=== PATIENT | male | born 1990 | race Caucasian/White ===

== ENCOUNTER 2023-06-19 06:13 | Outpatient (OUT) | payer OTHER, SELFPAY ==
[2023-06-19 07:45] LABS: Free T4 0.84 ng/dL (0.76-1.46)
[2023-06-19 07:51] LABS: Free T3 2.61 pg/mL (2.18-3.98)
== END 2023-06-19 06:14 | disposition home or self-care (01) ==
LOC: LAB 06:17
PROVIDERS: PCP Specialist; Visit Provider Nurse Practitioner
DX: E03.9 Hypothyroidism, unspecified (principal)
CPT/HCPCS: 36415; 84439; 84443; 84481

== ENCOUNTER 2023-08-21 08:46 | Outpatient (OUT) | payer OTHER, SELFPAY ==
--- OUTSIDE RECORDS SUMMARY | 2023-08-21 08:50 | XMS_ITS | CCD ---
Author Name Unknown Address [address] [place] [address] Organization [facility] Care Team Providers Care Financial Management Consultant Name Role Phone BAHMAN, DR FRAN Crews Attending Unavailable BAHMAN, DR FRAN Crews Consulting Unavailable BAHMAN, DR FRAN Crews Admitting Unavailable BAHMAN, DR FRAN Crews Consulting Unavailable BAHMAN, DR FRAN Crews Admitting Unavailable BAHMAN, DR FRAN Crews Attending Unavailable BAHMAN, DR FRAN Crews Consulting Unavailable BAHMAN, DR FRAN Crews Admitting Unavailable BAHMAN, DR FRAN Crews Attending Unavailable BAHMAN, FRAN Crews Primary Care Physician [phone] Zen ARREDONDO Attending Unavailable Zen ARREDONDO Admitting Unavailable Zen ARREDONDO Referring Unavailable Zen ARREDONDO Attending Unavailable Lady Mendez Attending Unavailable Medications Current Medications Medication Drug Class(es) Dates Sig (Normalized) Sig (Original) acetaminophen 325 mg / HYDROcodone bitartrate 5 mg oral tablet (1 source) Opioid Agonist Start: 05-11-2022 [place] 325 mg-5 mg oral tablet 1 tab(s), Oral, q4hr, 12 tab(s), Refill(s) 0, take one tab q4hr prn after procedure, [facility]/pharmacy #[id number], 185, cm, 04/14/22 15:12:00 EDT, Height/Length Dosing, 98, kg, 04/14/22 15:12:00 EDT, Weight Dosing Start Date: 05/11/22 Status: Ordered cephalexin 500 mg oral capsule (1 source) Cephalosporin Antibacterial Start: 05-11-2022 take 1 capsule by mouth twice daily Keflex 500 mg Cap 500 mg = 1 cap(s), Oral, BID, start one day prior to procedure, # 10 cap(s), Refills(s) 0, Pharmacy: [facility]/pharmacy #[id number], 185, cm, 04/14/22 15:12:00 EDT, Height/Length Dosing, 98, kg, 04/14/22 15:12:00 EDT, Weight Dosing Start Date: 05/11/22 Status: Ordered diazePAM 10 mg oral tablet (1 source) Benzodiazepine Start: 05-11-2022 Valium 10 mg Tab 10 mg = 1 tab(s), Oral, Once, take one hour prior to procedure, # 1 tab(s), Refills(s) 0, Pharmacy: [facility]/pharmacy #[id number], 185, cm, 04/14/22 15:12:00 EDT, Height/Length Dosing, 98, kg, 04/14/22 15:12:00 EDT, Weight Dosing Start Date: 05/11/22 Status: Ordered Synthroid (1 source) l-Thyroxine Start: 05-20-2022 take 1 dose by mouth once daily Loratadine (1 source) Start: 04-14-2022 loratadine Daily Start Date: 04/14/22 Status: Ordered Multi Vitamins oral tablet (1 source) Start: 04-14-2022 Multi Vitamins oral tablet Oral, Daily Start Date: 04/14/22 Status: Ordered Problems Problem Classification Problem Date Documented Date Episodic/Chronic Contraceptive and procreative management (1 source) Contraception status 06-09-2022 Episodic Other screening for suspected conditions (not mental disorders or infectious disease) (1 source) Abnormal results of thyroid function studies; Translations: [ABNORMAL RESULTS THR FUNCTION STDY] Onset: 04-21-2022 Episodic Residual codes; unclassified (1 source) Family history of prostate cancer 04-14-2022 Episodic Thyroid disorders (4 sources) Hypothyroidism, unspecified; Translations: [HYPOTHYROIDISM UNSPECIFIED] Onset: 06-20-2022 Chronic Results Test Name Value Interpretation Reference Range Facility Immunization Recordson 05-25 Immunization Records [id number] .00CD:127 Normal [facility] Ambulatory Visit Summaryon 0 05-06-2023 Ambulatory Visit Summary YUNI CASTRO :1990 Visit Date:05/06/2023 Ambulatory Visit Instructions Your Diagnosis Hypothyroid BMI 27.0-27.9,adult Your Care Team Attending Physician - Lady Ruiz Primary Care Physician - Lady Ruiz This Is Your Medications List levothyroxine (Synthroid) levothyroxine (levothyroxine 75 mcg (0.075 mg) Tab) loratadine multivitamin (Multi Vitamins oral tablet) Procedures Performed Vasectomy (05/20/2022), Appendectomy, Surgery. Discharge Vitals Heart Rate (Peripheral) 76 Respiratory Rate 18 Blood Pressure 100/68 Height 185 cm Height 73 in Weight 95.1 kg Weight 209.22 lb BMI 27.79 Medications What How Much When Instructions Unchanged levothyroxine (levothyroxine 75 mcg (0.075 mg) Tab) 1 Tablets By Mouth Every day Pickup at [facility]/pharmacy #[id number] Unchanged levothyroxine (Synthroid) 75 Microgram By Mouth Every day Unchanged loratadine Every day Unchanged multivitamin (Multi Vitamins oral tablet) By Mouth Every day Pharmacy Information [facility]/pharmacy #[id number]: [address], [place] [id number] [phone] Allergies No Known Allergies Problems Ongoing - Any problem that you are currently receiving treatment for. Encounter for vasectomy Family history of prostate cancer Hypothyroid Education Materials Hypothyroidism Hypothyroidism is when the thyroid gland does not make enough of certain hormones. This is called an underactive thyroid. The thyroid gland is a small gland located in the lower front part of the neck, just in front of the windpipe (trachea). This gland makes hormones that help control how the body uses food for energy (metabolism) as well as how the heart and brain function. These hormones also play a role in keeping your bones strong. When the thyroid is underactive, it produces too little of the hormones thyroxine (T4) and triiodothyronine (T3). What are the causes? This condition may be caused by: ? Juan Pablo's disease. This is a disease in which the body's disease-fighting system (immune system) attacks the thyroid gland. This is the most common cause. ? Viral infections. ? . ? Certain medicines. ? defects. ? Problems with a gland in the center of the brain (pituitary gland). ? Lack of enough iodine in the diet. Other causes may include: ? Past radiation treatments to the head or neck for cancer. ? Past treatment with radioactive iodine. ? Past exposure to radiation in the environment. ? Past surgical removal of part or all of the thyroid. What increases the risk? You are more likely to develop this condition if: ? You are female. ? You have a family history of thyroid conditions. ? You use a medicine called lithium. ? You take medicines that affect the immune system (immunosuppressants). What are the signs or symptoms? Common symptoms of this condition include: ? Not being able to tolerate cold. ? Feeling as though you have no energy (lethargy). ? Lack of appetite. ? Constipation. ? Sadness or depression. ? Weight gain that is not explained by a change in diet or exercise habits. ? Menstrual irregularity. ? Dry skin, coarse hair, or brittle nails. Other symptoms may include: ? Muscle pain. ? Slowing of thought processes. ? Poor memory. How is this diagnosed? This condition may be diagnosed based on: ? Your symptoms, your medical history, and a physical exam. ? Blood tests. You may also have imaging tests, such as an ultrasound or MRI. How is this treated? This condition is treated with medicine that replaces the thyroid hormones that your body does not make. After you begin treatment, it may take several weeks for symptoms to go away. Follow these instructions at home: ? Take ifmz-cgo-dgcmbon and prescription medicines only as told by your health care provider. ? If you start taking any new medicines, tell your health care provider. ? Keep all follow-up visits as told by your health care provider. This is important. ? As your condition improves, your dosage of thyroid hormone medicine may change. ? You will need to have blood tests regularly so that your health care provider can monitor your condition. Contact a health care provider if: ? Your symptoms do not get better with treatment. ? You are taking thyroid hormone replacement medicine and you: ? Sweat a lot. ? Have tremors. ? Feel anxious. ? Lose weight rapidly. ? Cannot tolerate heat. ? Have emotional swings. ? Have diarrhea. ? Feel weak. Get help right away if: ? You have chest pain. ? You have an irregular heartbeat. ? You have a rapid heartbeat. ? You have difficulty breathing. These symptoms may be an emergency. Get help right away. Call 911. ? Do not wait to see if the symptoms will go away. ? Do not drive yourse (more content not included)... Normal [facility] Family Medicine Office/Laurita Cueto 05-06-2023 Family Medicine Office/Clinic Note HPI Staff Yuni is a 32 year old male presenting to [facility] care Establish Care: History: Any previous diagnosis: Hypothyroidism, seasonal allergies History of seeing any specialist: When was your last doctors visit: Last provider: Dr Ruggiero Any recent labs: TSH 06/20/22 11.720 04/16/23 96.175 Health Maintenance UTD: Colonoscopy: no PSA: no Acute: Current issues/complaints: needs refill levothyroxine History of Present Illness pt presents today to review labs Review of Systems PHQ Score Initial Depression Screen Score: 0 ROS - Provider Constitutional: no fever, no chills, no sweats, no fatigue Respiratory: no shortness of breath, no cough, no orthopnea, no wheezing. Cardiovascular: no chest pain, no palpitations, no edema. Neurologic: no headache, no dizziness, no numbness, no weakness. Physical Exam Vitals & Measurements HR: 76(Peripheral) RR: 18 BP: 100/68 SpO2: 98% HT: 73 in HT: 185 cm WT: 95.1 kg WT: 209.22 lb BMI: 27.79 General: alert, no acute distress ENMT: oral mucosa moist, no pharyngeal erythema or exudate Cardiovascular: regular rate and rhythm, normal peripheral perfusion Respiratory: Lungs CTA, respirations non labored Extremities: no deformity, no trauma Neurological: oriented x 4, LOC appropriate for age, CN II-XII intact, motor strength equal & normal bilaterally, speech normal Assessment/Plan 1. Hypothyroid (E03.9: Hypothyroidism, unspecified) discussed lab results. pt has not taken synthroid since December. pt has many questions about hypothyroidism. patient hand out provided. all questions answered. pt to return to [facility] in 6 weeks for a lab draw will adjust meds as needed. 2. BMI 27.0-27.9,adult (Z68.27: Body mass index [BMI] 27.0-27.9, adult) BMI education complete Orders: levothyroxine, 75 mcg = 1 tab(s), Oral, Daily, # 30 tab(s), Refills(s) 1, Pharmacy: [facility]/pharmacy #[id number], 185, cm, 05/06/23 14:44:00 EDT, Height/Length Dosing, 95.1, kg, 05/06/23 14:44:00 EDT, Weight Dosing Follow-up No qualifying data available Patient Education Hypothyroidism Hypothyroidism Problem List/Past Medical History Ongoing Encounter for vasectomy Family history of prostate cancer Hypothyroid Historical No qualifying data Procedure/Surgical History Vasectomy (05/20/2022), Appendectomy, Surgery. Medications levothyroxine 75 mcg (0.075 mg) Tab, 75 mcg= 1 tab(s), Oral, Daily, 1 refills loratadine, Daily Multi Vitamins oral tablet, Oral, Daily Synthroid, 75 mcg, Oral, Daily, Not taking: pt ran out of medication Allergies No Known Allergies Social History Alcohol - Denies Alcohol Use, 04/14/2022 Tobacco Never (less than 100 in lifetime) Tobacco Use:. Never Smokeless Tobacco Use:. Household tobacco concerns: No., 05/06/2023 Family History Diabetes mellitus: Father. Epilepsy: Father. Primary malignant neoplasm of prostate: Father and Grandparent. Immunizations Vaccine Date Status Comments influenza virus vaccine, inactivated 05/31/2022 Recorded SARS-CoV-2 (COVID-19) mRNA BNT-162b2 vax 07/14/2021 Recorded 2023-05-06: TPVALL influenza virus vaccine, inactivated 05/20/2021 Recorded SARS-CoV-2 (COVID-19) mRNA BNT-162b2 vax 11/01/2020 Recorded SARS-CoV-2 (COVID-19) mRNA BNT-162b2 vax 10/11/2020 Recorded influenza virus vaccine, inactivated 05/20/2020 Recorded influenza virus vaccine, inactivated 05/31/2019 Recorded influenza virus vaccine, inactivated 06/01/2018 Recorded measles/mumps/rubella virus vaccine 06/17/2000 Recorded DTaP, unspecified formulation 04/10/1994 Recorded Hib, unspecified formulation 04/30/1993 Recorded measles/mumps/rubella virus vaccine 09/24/1989 Recorded Normal [facility] Comment on above: Result Comment: Elec tronically Signed By: Lady Ruiz\.silvino\Date and Time Signed: 05/06/23 15:08 EDT Patient Educationon 05-06-20 Patient Education Hypothyroidism Hypothyroidism is when the thyroid gland does not make enough of certain hormones. This is called an underactive thyroid. The thyroid gland is a small gland located in the lower front part of the neck, just in front of the windpipe (trachea). This gland makes hormones that help control how the body uses food for energy (metabolism) as well as how the heart and brain function. These hormones also play a role in keeping your bones strong. When the thyroid is underactive, it produces too little of the hormones thyroxine (T4) and triiodothyronine (T3). What are the causes? This condition may be caused by: ? Juan Pablo's disease. This is a disease in which the body's disease-fighting system (immune system) attacks the thyroid gland. This is the most common cause. ? Viral infections. ? . ? Certain medicines. ? defects. ? Problems with a gland in the center of the brain (pituitary gland). ? Lack of enough iodine in the diet. Other causes may include: ? Past radiation treatments to the head or neck for cancer. ? Past treatment with radioactive iodine. ? Past exposure to radiation in the environment. ? Past surgical removal of part or all of the thyroid. What increases the risk? You are more likely to develop this condition if: ? You are female. ? You have a family history of thyroid conditions. ? You use a medicine called lithium. ? You take medicines that affect the immune system (immunosuppressants). What are the signs or symptoms? Common symptoms of this condition include: ? Not being able to tolerate cold. ? Feeling as though you have no energy (lethargy). ? Lack of appetite. ? Constipation. ? Sadness or depression. ? Weight gain that is not explained by a change in diet or exercise habits. ? Menstrual irregularity. ? Dry skin, coarse hair, or brittle nails. Other symptoms may include: ? Muscle pain. ? Slowing of thought processes. ? Poor memory. How is this diagnosed? This condition may be diagnosed based on: ? Your symptoms, your medical history, and a physical exam. ? Blood tests. You may also have imaging tests, such as an ultrasound or MRI. How is this treated? This condition is treated with medicine that replaces the thyroid hormones that your body does not make. After you begin treatment, it may take several weeks for symptoms to go away. Follow these instructions at home: ? Take vbzl-xyn-lsrzepf and prescription medicines only as told by your health care provider. ? If you start taking any new medicines, tell your health care provider. ? Keep all follow-up visits as told by your health care provider. This is important. ? As your condition improves, your dosage of thyroid hormone medicine may change. ? You will need to have blood tests regularly so that your health care provider can monitor your condition. Contact a health care provider if: ? Your symptoms do not get better with treatment. ? You are taking thyroid hormone replacement medicine and you: ? Sweat a lot. ? Have tremors. ? Feel anxious. ? Lose weight rapidly. ? Cannot tolerate heat. ? Have emotional swings. ? Have diarrhea. ? Feel weak. Get help right away if: ? You have chest pain. ? You have an irregular heartbeat. ? You have a rapid heartbeat. ? You have difficulty breathing. These symptoms may be an emergency. Get help right away. Call 911. ? Do not wait to see if the symptoms will go away. ? Do not drive yourself to the hospital. Summary ? Hypothyroidism is when the thyroid gland does not make enough of certain hormones (it is underactive). ? When the thyroid is underactive, it produces too little of the hormones thyroxine (T4) and triiodothyronine (T3). ? The most common cause is Juan Pablo's disease, a disease in which the body's disease-fighting system (immune system) attacks the thyroid gland. The condition can also be caused by viral infections, medicine, , or past radiation treatment to the head or neck. ? Symptoms may include weight gain, dry skin, constipation, feeling as though you do not have energy, and not being able to tolerate cold. ? This condition is treated with medicine to replace the thyroid hormones that your body does not make. This information is not intended to replace advice given to you by your health care provider. Make sure you discuss any questions you have with your health care provider. Document Revised: 08/18/2022 Document Reviewed: 08/18/2022 [employer] Patient Education ? 2022 [employer] Endocrinology Hypothyroidism Hypothyroidism is when the thyroid gland does not make enough of certain hormones. This is called an underactive thyroid. The thyroid gland is a small gland located in the lower front part of the neck, just in front of the windpipe (trachea). This gland makes hormones that help control how the body uses food for energy (metabolis (more content not included)... Normal [facility] Lab Reportson 08-21-2023 Lab Reports [id number]:127 Normal [facility] Lab Reports [id number] .00CD:127 Normal [facility] Coding Summary.on 12-09-2022 Coding Summary. CD:[id number] W w+PGhlYWQ+SZ3LABVpR19 neUKuaU8nU0YIBBiAGhii DCGJOCvNMiEnzbMqNA9pr XNjZXJu IC8+WZ4qXEPhNwnsnSNlu 4O6wGQ4U14eix9hEQtdfD O1LPRyDtPocezkp9opbWr 6IDcuNmluOyBt MVTukX67TNO5bC88Po75n AZssXQhy6bzeIf7YhRnRL FgAQE5oCqbFRfzk2NxSDA zQ33cdUFjl1K3 BBBxyRefpQJqBdNabRS2k W6mDOaebokrn0spkueaNz t6bo90fXQow8A2cDZ9V6R matR6PWQgcPNu IvoykIVQlM8qarnjz5qkr nxcIbFtOTJjXTp7UMu9NY GnjVlbGgKwEZ47NTM0LLX lfzAaH1YeJORt wNufIcO2c7L9Et9ZX4VCI tizB9SJHXQDBGdqaLJ+PC 31ce58T0IhMxvrFfh0LLS dOQM3nGV6iE2j JFJmGQded9R0gOA3E8Shu jCwfo0di5dvVMApEXtdK6 9szLRvx4X5HVYqsAY1CDE avEwuJmEylE61 Oyc+PABewLyew3NvFybzi 5wud2trtQo9HnhoWLKkak DpkLpgADV7k5HkIx1aPOJ tzMD9nFK7zN7v IoOhMkT7LJftP510OoMsj NNqJlbqK92cN8GluRT+PH DhEtk6OKMqfMoeKJ2cO6D hZGRpbmctbGVm iSzcYX6eYRFipwhbUGYzx X6mLEXxP1j2OiOjYoI2HQ mpR4WbVYWgwbyoMf86wE2 lMiLuZeS9JEkr A3RzqoN1QRWdrRSsWNtbI IN5A15ol4Q8HMKtTRXsRX W8bFY6wO3hgThkhajtvFO mdDsgdmVydGlj PLvcKBasK489RLUjgNttV kNvZGluZyBEYXRlOiAgMD QvMTIvMjAyMzwvdGQ+PHR dFNY2mAqqHWDr qIErLJcnNv3qvShhdYegG D4vHVPiygzyWTCacE5sYB ZtxYHciDshEA0pRCYifhx fz688TdEjEJD5 QBAuwPUuO8CbhL7sGsMlO HViPALnS8SjcKVwRVmsP9 07IHfsGwQ3KMYnkmKiZ4Z sLWFsaWduOiB0 w7Z3Yk3Ot2GsyldfH4Hdj RZdHiIeMqnlSMc9N6HcEx wvdHI+NS46DZZaOW17IPe 0DZN0bMhwYAfm IGUxG3NdxB3zMnLyFUQoX GRkOyc+PHRhYmxlIHdpZH RoPScxMDAlJyBzdHlsZT0 gPw0qQJUzUCAi hPzqhCYgXjBig0ulVNJnO UfnQB5zvNjyS5SbjUD7FW Rwc3r3Da69J81cJ9OpkTX +QVOlpFF0pYZ3 jY9uSpTdQyI4OFceF209C xYkqUZzMbrci3lqp9vlvM t5GrU8AHHdatIklWreGLU 4d8TfTq32F06w IHdpZHRoPSIxNSUiIHZhb Izocu6lwH3iAs0+PGNvbC W9cNW7xZ8gOaRgAgT6SEb uJ526WgZujDIn Xfnue6wve5telVy4UhQmL WOqwmYqrJkaUDG3d7MkGd 94K7FwrHujn2NuBnu7ox9 0gGGox9Z1hRJ1 U9EdKUKczfgcrDNcjZcmO Q3cWBScjaqkYKOpeR3sOJ YoK4h1HmIjJlE2KSsrN2F iptA8KXWyjKGg XAMenHQNjD0cirhdv9unf hlsMyUrMJQqLAk3RLc6CJ ZhjMsmPzVtRBS7JwE8KWY 9oQOseV7umTth clhcqG7fRhs+IMA4rQFcm TILDA9wHvoxmVL+PHRkIH N5vFidDFvpLFWpwM0sPFJ bJ6u6UwAuYxM1 ZMptG5IxvnD8FZToiJUjR SZjrDZSwT3aijdxg0yalm nhHrQkGMTgCOz2YFd8QZT saWduOiBsZWZ0 IzW5AFN1kJMzjW3mcCzkk xjjgG2cOdl+QmlydGggRG K1XUx6W9GcAar2KWMukYf qEZ7vlPVgXIcj Op3raWzkdVjyHX0lXEKmj rmof869RqKru2qgNEQlpW SrNEqaEHD6D28hv2H1PIT oEFHxDWV1kTY7 aO8toKbitnrbjDEppZylh dYwhGsnXOdaYJjtP017EI BeqUmbIvZxCFk4B1BzTto 0UZCxeHuqKS5s bBChSDucGv0xsJvcmQceJ P4rXSLdokbpp498CfGdt0 awVVNvuTWhEEqiINZ3P67 mv0T8VYHjIEGs BGX0tRX8kH3fpUfailsoe GVmdDsgdmVydGljYWwtYW tgX544QHHoaPtgJsDwvEz 6E7UpFcc2WPSu hVuyAR1qfKYnHLmfNz3jr YhvwTvtBZ4lCIDfzyzyv0 80IyAsf3qcYIKzdTVoGSf uITC7T15yd4J6 LKHeGCReJFW3wBA1sX5qi GlnbjogbGVmdDsgdmVydG yrHMvuVFafJ139KNCtvTg nPlBhdGllbnQg VBauDYy5O1UdNtuwfJO+P V05MVOpAT83wAGuvFZli7 gfzSo1CfBrJCKpKUL0gZj dOYvgk0NmQDHa D88blVNpy9Q1YBKgtFcws UQpQoUdzOW6zS2jWUuvmg xoa2zqneleQpvrm1hmzd9 5gC74C67oLJcx ZHRoPSIzMCUiIHZhbGlnb q5phU2kTv8+PHZryDC0vK Z9aD7xMIUtYwQ1JVouF44 9InRvcCIvPjxj j9pmc8rleCk9ShY5NSNyw uKdtIxzWVK9w5KtGh22W3 9sIHdpZHRoPSIyMCUiIHZ skYtkqk3zkZ4p Ii8+FQRzpNM0kVS4wZ3nL mZnFwA8FEuhD015FgEwkL ChIgodT85dC9AadBN+PHR mAym9SOVdsUxy OW5krNPaEFtfHe6gSPC1B qRgLuYbCOniX9DwBKToza adkehogYF1MTUiNNBzfF3 7Sb7gwQmgCGDr jSSDyP8jhtxic7yamgtnR fQvJTTkFAe4QWs4GGOnqH ojDxCpIKV5IpL2IQA9tWW ceY2kqWksycel uC7qR9DdEQPrercdVv08y W6bDzHoAkH6QHjqOyq+RE VCTEFTRSwgSkVGRlJFWSB LOS41CZ07vSLm h2I5mMF5L9BjDVCiormzb iiflJT1SKSyLIJloU35mZ IcSBehPa0cf8C1b509KQP cHGWisI55Nv8v cFxuCXTetNYAgS0eedixk 5ymgrxrEjJiWQTkDEh4TQ l4YEPdzVyuKgJrCIA1EcZ 4UMR6lZAieP4o iLeehddqeT7vSbp+MTAvM zDlUZe5WEicpWY+PHRkIH M6aLzlZBxcIDTdhI1lZBR rM1i0LmLfUqE1 NIovP8QiZXYrldnkGb72u Y3vXyEvBpO3FVfrF4Iubx H2LUTrnZKgAIfePGG9M05 ao8H5HUTlBPFf KTD9hUC7eJ0ueJyobwpel GVmdDsgdmVydGljYWwtYW voW189RISyvIxmJiO3KBc qBVKjRS87NJ56 bALft3R7cZW2Z7DvQPWgy okqbwcneVH5WGMyXPWskL 61sFNhZPljTj3ow3S7s52 6YZJqHUUllA51 Ng8rxJqrSMYdwOOLwH6dn djyc5vqxrrnAeCgBTKeSL x2BVz8TAFrdLfmKyEgQRS 6BpF4YZO2iUWi sC3xgWxbztepqE3yMjg+T WFsZTwvdGQ+SLEuKRH1iC spTJphEMWmaO5iTPOyO7y 9CdNdDzV6VThy A9PkKBZgsbdoXx92uR4uH jVwXvD8XAmmS7JhnnB8FZ WbvYUyIEdkTCL0E59pd4Q 5HOCnRYCgJMJ4 oKX2uX2jcYlarfksuFNvj DsgdmVydGljYWwtYWxpZ2 88MGXxdJwxRyohDaAFvr6 qSA5cPemwjVP+ SP73tm66P2HrZeesQkb3G COiMVH5jDC7eM1uGBIdFU vxi5K5oCZ4M0YgbaZxlb8 kq7raSFZtXZzr X65evWCsn3B1ISTkySF7Q OHpaBotYdKjaX21Qgm+PG DnbLimk5KdNcnxh9idr4i ibFw0UbNkQCRl tcLdxAppHYK1z3PyOm45S 29sIHdpZHRoPSIzMCUiIH JrgDowzz3pfE7nOd1+PGN jbLP3dXX9cC3q SxPkZkH4PGsuM249MpOsw XVmVauga7kwp1fanZg9Rc GnQYGlbbAzkPjkJPC5f6B hBl98B0DtjUel r1JoBre6wt98tVQgd6F9a RD7R8EhPXWkeykeaHXkdK uiCL8rJSNigvpcUDHoaD5 nALYjX4b9ZdRe FeG6AAfdH8TkavE0DDIpn SDtIIDwnQWToZ7xirdqn4 byoclxZxQiNANdUUt2RZs 0LWFsaWduOiBs EST0WmX0ZXE3zAKezH0hf SgtcoflpW9nRab+UGh5c2 oalQSkOP0ipWM2NQ34OD5 5vWNoi5O1kWA6 C9EfCROftlgvkkyrcBN4B CPrGSKpdA86Mb8reLgcLe 5mSIEuAYL3OQVndWYtL3D cdK2sWoHeINRo NNZnK1RegMHlUKogS881N FbjQkF0PNIjthWfL2AdAU XrtMkyKiK9s9I0Ps5TUS9 1BR18MM63qWCf p0W5lHL4Y4AiAZAtlqpat codlSZ2JBPtVJYoeA37Kc 8wwKxmGr2cRFUmMMF3CEO hrLNsZ5TlqZ9e VcHfYKCpEWKrZ7ShtPAjG MzmJ116HClgEfC9FBMegp LbU6IuPULfcIfgOyW3m7O 4Nl0GLd65VH50 YK20aLTnc9U7zMG9R6EsQ MYmkhvzifltdCZ9XVTsOW AeqT73Rd4koPhqYr4eNNI aZUB3ULXthWHs A0DegK2lIjJzHCXfBDAiZ 5VnuBHqBHvzQ152BSwcTm I6DZKckgQaH7WjTMJocDb sWyH2l2V4Ji5R JHfwvun9J6VgLcqzhJU+P B07GGXxKY26pRUlyJQxj1 gniLa4ViMoKWJuKNY0rBd vYCpal9VbWNPg B82zeZDv (more content not included)... Normal [facility] Physician Orderon 10-20-2022 Physician Order [id number]:127 Normal [facility] Semen Analysis PostVason Breann/Transport Prob No Problems Normal [facility] Comment on above: Performed By: #### 2 [id number] #### [facility] [address] [place] [address] Collect. Meth Masturbation Normal [facility] Comment on above: Performed By: #### 2 [id number] #### [facility] [address] [place] [address] Days Abstained 6 day(s) High 2-5 [facility] Comment on above: Performed By: #### 2 [id number] #### [facility] [address] [place] [address] Motility 0 % Invalid Interpretation Code [facility] Comment on above: Performed By: #### 2 [id number] #### [facility] [address] [place] [address] Post Vas Screen No Sperm Seen Normal <=0 [facility] Comment on above: Result Comment: A Co ncentration Technique is used to confirm any semen which is azospermic (no sperm seen). Performed By: #### 2 [id number] #### [facility] [address] [place] [address] Spec. Container Steril Container Normal [facility] Comment on above: Performed By: #### 2 [id number] #### [facility] [address] [place] [address] Spec. Temp 25 DegC Normal 20-37 [facility] Comment on above: Performed By: #### 2 [id number] #### [facility] [address] [place] [address] Sperm Morphon 08-28-2022 Sperm Morph No sperm identified (A concentration technique is used to evaluate this specimen). ICD10 Z30.9 Invalid Interpretation Code [facility] Comment on above: Other Comment: Order Added by Discern Expert. Sperm Morph No sperm identified (A concentration technique is used to evaluate this specimen). Invalid Interpretation Code [facility] Comment on above: Order Comment: Order Added by Discern Expert. Performed By: #### 2 [id number] #### [facility] [address] [place], [place] [id number] FREE T3on 06-20-2022 FREE T3 2.51 pg/mlL Normal 2.18-3.98 [facility] Comment on above: Performed By: #### T SH, FT3 #### [facility] [address] [place] [address] Dr. Felipe Johnson FREE T4on 06-20-2022 Free T4 [Mass/Vol] 0.86 ng/dL Normal 0.76-1.46 [facility] Comment on above: Performed By: #### F T4 #### [facility] [address] [place] [address] Dr. Felipe Johnson TSHon 06-20-2022 TSH 11.720 uIU/mL Critically high 0.358-3.740 [facility] Comment on above: Performed By: #### T SH, FT3 #### [facility] [address] [place] [address] Dr. Felipe Johnson Patient Educationon 06-09-20 Patient Education Obstetrics and Gynecology Contraception Choices Contraception, also called control, refers to methods or devices that prevent . Hormonal methods Contraceptive implant A contraceptive implant is a thin, plastic tube that contains a hormone. It is inserted into the upper part of the arm. It can remain in place for up to 3 years. Progestin-only injections Progestin-only injections are injections of progestin, a synthetic form of the hormone progesterone. They are given every 3 months by a health care provider. control pills control pills are pills that contain hormones that prevent . They must be taken once a day, preferably at the same time each day. control patch The control patch contains hormones that prevent . It is placed on the skin and must be changed once a week for three weeks and removed on the fourth week. A prescription is needed to use this method of contraception. Vaginal ring A vaginal ring contains hormones that prevent . It is placed in the vagina for three weeks and removed on the fourth week. After that, the process is repeated with a new ring. A prescription is needed to use this method of contraception. Emergency contraceptive Emergency contraceptives prevent after unprotected sex. They come in pill form and can be taken up to 5 days after sex. They work best the sooner they are taken after having sex. Most emergency contraceptives are available without a prescription. This method should not be used as your only form of control. Barrier methods Male condom A male condom is a thin sheath that is worn over the penis during sex. Condoms keep sperm from going inside a woman's body. They can be used with a spermicide to increase their effectiveness. They should be disposed after a single use. Female condom A female condom is a soft, loose-fitting sheath that is put into the vagina before sex. The condom keeps sperm from going inside a woman's body. They should be disposed after a single use. Diaphragm A diaphragm is a soft, dome-shaped barrier. It is inserted into the vagina before sex, along with a spermicide. The diaphragm blocks sperm from entering the uterus, and the spermicide kills sperm. A diaphragm should be left in the vagina for 6?8 hours after sex and removed within 24 hours. A diaphragm is prescribed and fitted by a health care provider. A diaphragm should be replaced every 1?2 years, after giving , after gaining more than 15 lb (6.8 kg), and after pelvic surgery. Cervical cap A cervical cap is a round, soft latex or plastic cup that fits over the cervix. It is inserted into the vagina before sex, along with spermicide. It blocks sperm from entering the uterus. The cap should be left in place for 6?8 hours after sex and removed within 48 hours. A cervical cap must be prescribed and fitted by a health care provider. It should be replaced every 2 years. Sponge A sponge is a soft, circular piece of polyurethane foam with spermicide on it. The sponge helps block sperm from entering the uterus, and the spermicide kills sperm. To use it, you make it wet and then insert it into the vagina. It should be inserted before sex, left in for at least 6 hours after sex, and removed and thrown away within 30 hours. Spermicides Spermicides are chemicals that kill or block sperm from entering the cervix and uterus. They can come as a cream, jelly, suppository, foam, or tablet. A spermicide should be inserted into the vagina with an applicator at least 10?15 minutes before sex to allow time for it to work. The process must be repeated every time you have sex. Spermicides do not require a prescription. Intrauterine contraception Intrauterine device (IUD) An IUD is a T-shaped device that is put in a woman's uterus. There are two types: ? Hormone IUD.This type contains progestin, a synthetic form of the hormone progesterone. This type can stay in place for 3?5 years. ? Copper IUD.This type is wrapped in copper wire. It can stay in place for 10 years. Permanent methods of contraception Female tubal ligation In this method, a woman's fallopian tubes are sealed, tied, or blocked during surgery to prevent eggs from traveling to the uterus. Hysteroscopic sterilization In this method, a small, flexible insert is placed into each fallopian tube. The inserts cause scar tissue to form in the fallopian tubes and block them, so sperm cannot reach an egg. The procedure takes about 3 months to be effective. Another form of control must be used during those [address] (more content not included)... Normal [facility] Urology Office/Clinic Noteon 06-09-2022 Urology Office/Clinic Note Chief Complaint PO Vasectomy HPI Staff This is a 31 year old male here for PO Vasectomy done 05/20/22. Pt. states no issues since Vasectomy. Order being sent to [facility]. History of Present Illness Tests reviewed: none. I have reviewed the previous health record information and history for this patient from Dr. Arredondo. I have reviewed and verified the staff HPI to be accurate for this encounter. There have been no associated fever, chills, flank pain, or blood in the urine. Denies any urinary infections since last encounter. Review of Systems ROS - Provider Constitutional: denies weight loss, denies hot flashes. Eyes: denies eye problems. Gastrointestinal: denies nausea, denies vomiting. Cardiovascular: denies chest pain or angina. Integumentary: no dryness Musculoskeletal: denies musculoskeletal symptoms. ENMT: denies otolaryngeal symptoms. Respiratory: no shortness of breath. Heme/Lymph: denies easy bleeding tendency, denies easy bruising tendency. Psychiatric: no confusion, no anxiety. Genitourinary: denies dysuria, denies hematuria, denies discharge, denies urinary frequency, denies urinary hesitancy, denies nocturia, denies incontinence, denies genital sores, denies decreased libido, and denies erectile dysfunction. Physical Exam Vitals & Measurements HT: 73 in HT: 185 cm WT: 98 kg WT: 215.6 lb BMI: 28.63 General Appearance: alert, no distress, well nourished, well developed male. Genitourinary: normal scrotum, normal testes, normal urethra, normal epididymis, normal vas deferens/spermatic cord. Flank Pain: none. Bladder: nonpalpable Assessment/Plan 1. Encounter for postvasectomy sperm count (Z30.8: Encounter for other contraceptive management) S/p Vasectomy done 05/20/22. No issues since procedure, healing well. Jaden removed today without complications. Path report shows benign bilateral vas deferens. supplies provided for specimen, being done at [facility]. He is aware that he is not sterile until he has a negative semen analysis which will be checked after about two months and after 20-30 ejaculations. He should deliver the semen specimen to the lab within 30 min. of ejaculation and he will call one week later to get the results. Patient educated on back up contraceptives until sterility is confirmed. Follow up PRN unless otherwise indicated. All questions/concerns were discussed. Pt. to call the office if heencounters any issues prior. Pt. acknowledges understanding. Patient is postop vas I removed 3 sutures from each side tiny bit of bruising on the left side but there is no infection I told the patient not sterile for the 12 weeks from the time and we are going to get the sperm count done around the last week in July and he will call me for results all precautions till then Follow-up With When Contact Information VIVIANA MONZON, Zen Dorado, [address] [place] [address]- Additional Instructions: PRN Patient Education Contraception Choices I, Angela Sheppard, personally scribed for Dr. Arredondo on 06/09/2022 15:35:53. Documentation recorded by the scribe, Angela Sheppard, accurately reflects the services(s) I performed and decisions made by me. Authenticated by Dr. Arredondo on 06/09/2022 15:43:35.15:35:53. Problem List/Past Medical History Ongoing Encounter for vasectomy Family history of prostate cancer Historical No qualifying data Procedure/Surgical History Vasectomy (05/20/2022), Appendectomy. Medications Keflex 500 mg Cap, 500 mg= 1 cap(s), Oral, BID loratadine, Daily Multi Vitamins oral tablet, Oral, Daily [place] 325 mg-5 mg oral tablet, 1 tab(s), Oral, q4hr Synthroid, unknown dose, Oral, Daily Valium 10 mg Tab, 10 mg= 1 tab(s), Oral, Once Allergies No Known Allergies Social History Alcohol - Denies Alcohol Use, 04/14/2022 Tobacco Never (less than 100 in lifetime) Tobacco Use:., 04/14/2022 Family History Diabetes mellitus: Father. Epilepsy: Father. Primary malignant neoplasm of prostate: Father and Grandparent. Normal [facility] Comment on above: Result Comment: Elec tronically Signed By: Zen ARREDONDO MD\.br\Date and Time Signed: 06/09/22 15:43 EDT\.br\Electronically Co-Signed By: Angela Sheppard\.br\Date and Time Co-Signed: 06/09/22 15:36 EDT FREE T3on 04-18-2022 FREE T3 2.30 pg/mlL Normal 2.18-3.98 [facility] Comment on above: Performed By: #### F T3 #### [facility] [address] [place] [address] Dr. Felipe Johnson FREE T4on 04-18-2022 Free T4 [Mass/Vol] 0.54 ng/dL Critically low 0.76-1.46 [facility] Comment on above: Performed By: #### F T4 #### [facility] [address] [place] [address] Dr. Felipe Johnson [facility] CBC AUTO DIFFon 04-16-2022 BASO # 0.1 103/ul Normal 0.0-0.1 [facility] Comment on above: Performed By: #### H FPFCBC #### [facility] [address] [place] [address] Dr. Felipe Johnson Basophils/100 WBC (Bld) 1.1 % Normal 0.2-2.0 [facility] Comment on above: Performed By: #### H FPFCBC #### [facility] [address] [place] [address] Dr. Felipe Johnson EO # 0.3 103/ul Normal 0.0-0.7 [facility] Comment on above: Performed By: #### H FPFCBC #### [facility] [address] [place] [address] Dr. Felipe Johnson Eosinophils/100 WBC (Bld) 7.4 % Critically high 0.9-7.0 [facility] Comment on above: Performed By: #### H FPFCBC #### [facility] [address] [place] [address] Dr. Felipe Johnson Erythrocyte distribution width (RBC) [Ratio] 12.3 % Normal 11.0-15.0 [facility] Comment on above: Performed By: #### H FPFCBC #### [facility] [address] [place] [address] Dr. Felipe Johnson Hematocrit (Bld) [Volume fraction] 43.0 % Normal 42.0-54.0 [facility] Comment on above: Performed By: #### H FPFCBC #### [facility] [address] [place] [address] Dr. Felipe Johnson Hemoglobin (Bld) [Mass/Vol] 14.3 g/dL Normal 14.0-18.0 [facility] Comment on above: Performed By: #### H FPFCBC #### [facility] [address] [place] [address] Dr. Felipe Johnson IG # 0.01 10e3/ul Normal 0.00-0.03 [facility] Comment on above: Performed By: #### H FPFCBC #### [facility] [address] [place] [address] Dr. Felipe Johnson IG % 0.2 % Normal 0.0-0.5 [facility] Comment on above: Performed By: #### H FPFCBC #### [facility] [address] [place] [address] Dr. Felipe Johnson LYMPH # 1.9 103/ul Normal 1.2-3.8 [facility] Comment on above: Performed By: #### H FPFCBC #### [facility] [address] [place] [address] Dr. Felipe Johnson Lymphocytes/100 WBC (Bld) 40.3 % Normal 20.5-60.0 [facility] Comment on above: Performed By: #### H FPFCBC #### [facility] [address] [place] [address] Dr. Felipe Johnson MCH (RBC) [Entitic mass] 30.2 pg Normal 25.9-34.0 [facility] Comment on above: Performed By: #### H FPFCBC #### [facility] [address] [place] [address] Dr. Felipe Johnson MCHC (RBC) [Mass/Vol] 33.3 g/dL Normal 29.9-35.2 [facility] Comment on above: Performed By: #### H FPFCBC #### [facility] [address] [place] [address] Dr. Felipe Johnson MCV (RBC) [Entitic vol] 90.9 fL Normal 80.0-94.0 [facility] Comment on above: Performed By: #### H FPFCBC #### [facility] [address] [place] [address] Dr. Felipe Johnson MONO # 0.6 103/ul Normal 0.3-0.8 [facility] Comment on above: Performed By: #### H FPFCBC #### [facility] [address] [place] [address] Dr. Felipe Johnson Monocytes/100 WBC (Bld) 13.9 % Critically high 1.7-12.0 [facility] Comment on above: Performed By: #### H FPFCBC #### [facility] [address] [place] [address] Dr. Felipe Johnson NEUT # 1.7 103/ul Normal 1.4-6.5 [facility] Comment on above: Performed By: #### H FPFCBC #### [facility] [address] [place] [address] Dr. Felipe Johnson Neutrophils/100 WBC (Bld) 37.1 % Critically low 43.0-75.0 [facility] Comment on above: Performed By: #### H FPFCBC #### [facility] [address] [place] [address] Dr. Felipe Johnson Platelet mean volume (Bld) [Entitic vol] 9.7 fL Normal 9.5-13.5 [facility] Comment on above: Performed By: #### H FPFCBC #### [facility] [address] [place] [address] Dr. Felipe Johnson PLT 207 103/ul Normal 150-450 [facility] Comment on above: Performed By: #### H FPFCBC #### [facility] [address] [place] [address] Dr. Felipe Johnson RBC 4.73 106/ul Normal 4.70-6.10 [facility] Comment on above: Performed By: #### H FPFCBC #### [facility] [address] [place] [address] Dr. Felipe Johnson WBC 4.6 103/ul Normal 4.0-11.0 [facility] Comment on above: Performed By: #### H FPFCBC #### [facility] [address] [place] [address] Dr. Felipe Johnson [facility] PROFILEon 022 Albumin [Mass/Vol] 4.4 g/dL Normal 3.4-5.0 [facility] Comment on above: Performed By: #### H FPF #### [facility] [address] [place] [address] Dr. Felipe Johnson Albumin/Globulin [Mass ratio] 1.3 {ratio} Normal [facility] Comment on above: Performed By: #### H FPF #### [facility] [address] [place] [address] Dr. Felipe Johnson ALP [Catalytic activity/Vol] 47 U/L Normal 46-116 [facility] Comment on above: Performed By: #### H FPF #### [facility] [address] [place] [address] Dr. Felipe Johnson ALT [Catalytic activity/Vol] 34 U/L Normal 16-63 [facility] Comment on above: Performed By: #### H FPF #### [facility] [address] [place] [address] Dr. Felipe Johnson AST [Catalytic activity/Vol] 24 U/L Normal 15-37 [facility] Comment on above: Performed By: #### H FPF #### [facility] [address] [place] [address] Dr. Felipe Johnson Bilirubin [Mass/Vol] 0.5 mg/dL Normal 0.2-1.0 [facility] Comment on above: Performed By: #### H FPF #### [facility] [address] [address] [address] Felipe Johnson Calcium [Mass/Vol] 9.2 mg/dL Normal 8.5-10.1 [facility] Comment on above: Performed By: #### H FPF #### [facility] [address] [address] [address] Felipe Johnson Chloride [Moles/Vol] 103 mmol/L Normal 98-107 [facility] Comment on above: Performed By: #### H FPF #### [facility] [address] [address] [address] Felipe Johnson CHOL-HDL RATIO NORM SEE BELOW Normal [facility] Comment on above: Result Comment: 3.3 - 4.4 LOW RISK 4.4 - 7.1 AVERAGE RISK 7.1 - 11.0 MODERATE RISK >11.0 HIGH RISK Performed By: #### H FPF #### [facility] [address] [address] [address] Felipe Johnson Cholesterol [Mass/Vol] 170 mg/dL Normal <=200 [facility] Comment on above: Performed By: #### H FPF #### [facility] [address] [address] [address] Felipe Johnson Cholesterol in HDL [Mass/Vol] 55 mg/dL Normal 40-60 [facility] Comment on above: Performed By: #### H FPF #### [facility] [address] [address] [address] Felipe Johnson Cholesterol in LDL [Mass/Vol] 103.2 mg/dL Normal [facility] Comment on above: Performed By: #### H FPF #### [facility] [address] [address] [address] Felipe Johnson Cholesterol.total/ Cholesterol in HDL [Mass ratio] 3.1 {ratio} Normal [facility] Comment on above: Performed By: #### H FPF #### [facility] [address] [address] [address] Felipe Johnson CO2 [Moles/Vol] 29.5 mmol/L Normal 21.0-32.0 [facility] Comment on above: Performed By: #### H FPF #### [facility] [address] [address] [address] Felipe Johnson Creatinine [Mass/Vol] 0.94 mg/dL Normal 0.70-1.30 [facility] Comment on above: Performed By: #### H FPF #### [facility] [address] [address] [address] Felipe Johnson Globulin (S) [Mass/Vol] 3.5 g/dL Normal [facility] Comment on above: Performed By: #### H FPF #### [facility] [address] [address] [address] Felipe Johnson Glucose [Mass/Vol] 89 mg/dL Normal 74-106 [facility] Comment on above: Performed By: #### H FPF #### [facility] [address] [address] [address] Felipe Johnson HDL NORMAL > or = 60 mg/dl - LO W CARDIOVASCULAR RISK <40 mg/dl - HIGH CARDIOVASCULAR RISK Normal [facility] Comment on above: Performed By: #### H FPF #### [facility] [address] [address] [address] Felipe Johnson LDL CALC NORMAL SEE BELOW Normal [facility] Comment on above: Result Comment: <100 mg/dl OPTIMAL 100 - 129 mg/dl NEAR OR ABOVE OPTIMAL 130 - 159 mg/dl BORDERLINE HIGH 160 - 189 mg/dl HIGH >190 mg/dl VERY HIGH Performed By: #### H FPF #### [facility] [address] [address] [address] Felipe Johnson Potassium [Moles/Vol] 4.0 mmol/L Normal 3.5-5.1 [facility] Comment on above: Performed By: #### H FPF #### [facility] [address] [address] [address] Felipe Johnson Protein [Mass/Vol] 7.9 g/dL Normal 6.4-8.2 [facility] Comment on above: Performed By: #### H FPF #### [facility] [address] [address] [address] Felipe Johnson Sodium [Moles/Vol] 139 mmol/L Normal 136-145 [facility] Comment on above: Performed By: #### H FPF #### [facility] [address] [address] [address] Felipe Johnson Triglyceride [Mass/Vol] 59 mg/dL Normal <=150 [facility] Comment on above: Performed By: #### H FPF #### [facility] [address] [address] [address] Felipe Johnson TSH 82.125 uIU/mL Critically high 0.358-3.740 [facility] Comment on above: Performed By: #### H FPF #### [facility] [address] [address] [address] Felipe Johnson Urea nitrogen [Mass/Vol] 15.0 mg/dL Normal 7.0-18.0 [facility] Comment on above: Performed By: #### H FPF #### [facility] [address] [address] [address] Felipe Johnson Urea nitrogen/Creatinin e [Mass ratio] 16.0 mg/mg Normal [facility] Comment on above: Performed By: #### H FPF #### [facility] [address] [address] [address] Felipe Johnson VLDL CALC 11.8 mg/dL Normal [facility] Comment on above: Performed By: #### H FPF #### [facility] [address] [place] [address] Dr. Felipe Johnson Encounters Encounter Date Encounter Type Care Provider Facility Start: 05-06-2023 End: 05-07-2023 ambulatory Lady Mendez Facility:[facility] Start: 04-19-2023 ambulatory Zen ARREDONDO Facility:[facility] Start: 08-24-2022 End: 08-25-2022 ambulatory Zen ARREDONDO Facility:[facility] Start: 08-24-2022 End: 08-24-2022 Lab Drop off Zen ARREDONDO [facility] Start: 06-20-2022 End: 06-21-[address] FRAN RUGGIERO Facility:[facility] Start: 06-09-2022 End: 06-10-2022 ambulatory Zen Estrada ARREDONDO Facility:[facility] Start: 04-18-2022 End: 04-19-[address] FRAN RUGGIERO Facility:[facility] Start: 04-16-2022 End: 04-17-[address] FRAN RUGGIERO Facility:[facility] Procedures Date Procedure Procedure Detail Performing Clinician Start: 05-20-2022 Vasectomy Zen Crews Appendectomy Zen ARREDONDO Payers Date Payer Category Payer Unknown [id number] [id number] [id number] 1990 Unknown [id number] 2.16.84 [id number] 1988 Unknown [id number] 2.16.8 [id number] 1988 Unknown [id number] 2.16.8 [id number] 1988 Unknown [id number] 2.16.8 [id number] 1959 Self-pay [id number] 1961 Unknown [id number] Unknown [id number] 2.16.84 [id number] Social History Date Type Detail Facility Start: 04-14-2022 Tobacco smoking status Never s moked tobacco (finding) [facility] Sex Assigned At Male [facility] Evaluation + Plan note 08-24-2022 Laboratory Note Date & Type Note Facility 08-24-2022 Evaluation + Plan note Diagnostic Tests PendingSemen Analysis Post Vasectomy 08/24/22Sperm Morphology 08/24/22 Future Scheduled TestsSemen Analysis Post Vasectomy 06/09/22 [facility] Hospital course Narrative Note Date & Type Note Facility Hospital course Narrative No data available for this section [facility] Discharge instructions Note Date & Type Note Facility Hospital Discharge instructions No data available for this section [facility] Progress note Note Date & Type Note Facility Progress note No data available for this section [facility] Summary Purpose Family History No Family History Records FoundNo Family History Records Found Advance Directives No Advanced Directives Records FoundNo Advanced Directives Records Found Additional Source Comments (unrecognized sect ion and content) No Status Records FoundNo Status Records Found INFORMATION SOURCE (unrecogn ized section and content) DATE CREATED AUTHOR 06/25/2022 [facility] DATE CREATED AUTHOR AUTHOR'S ORGANIZ ATION 06/02/2023 [facility] Patient Care team informatio n (unrecognized section and content) Personnel Name: FRAN RUGGIERO MD Address: Address: [address] [place] [phone] FOR RECORDS PERTAINING TO PATIENTS WHO ARE OR HAVE BEEN ENROLLED IN A CHEMICAL DEPENDENCY/SUBSTANCEABUSE PROGRAM, SOME INFORMATION MAY BE OMITTED. This clinical summary was aggregated from multiple sources. Caution should be exercised in using it in the provision of clinical care. This summary normalizes information from multiple sources, and as a consequence, information in this document may materially change the coding, format and clinical context of patient data. In addition, data may be omitted in some cases. CLINICAL DECISIONS SHOULD BE BASED ON THE PRIMARY CLINICAL RECORDS. [facility] provides no warranty or guarantee of the accuracy or completeness of information in this document.
== END 2023-08-21 08:47 | disposition home or self-care (01) ==
PROVIDERS: PCP Nurse Practitioner; Visit Provider Nurse Practitioner
DX: E03.9 Hypothyroidism, unspecified (principal)
CPT/HCPCS: 36415; 84443

== ENCOUNTER 2023-10-23 08:45 | Outpatient (OUT) | payer OTHER, SELFPAY ==
--- OUTSIDE RECORDS SUMMARY | 2023-10-23 08:47 | XMS_ITS | CCD ---
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 Name Role Phone BAHMAN, DR FRAN Crews Attending Unavailable BAHMAN, DR FRAN Crews Consulting Unavailable BAHMAN, DR FRAN Crews Admitting Unavailable PATHAK, DR FRAN Crews Consulting Unavailable PATHAK, DR FRAN Crews Admitting Unavailable PATHAK, DR FRAN Crews Attending Unavailable BAHMAN, DR FRAN Crews Consulting Unavailable BAHMAN, DR FRAN Crews Admitting Unavailable BAHMAN, DR FRAN Crews Attending Unavailable FRAN PATHAK Primary Care Physician Lady Mendez Attending Unavailable Lady Mendez Attending Unavailable Medications Current Medications Medication Drug Class(es) Dates Sig (Normalized) Sig (Original) acetaminophen 325 mg / HYDROcodone bitartrate 5 mg oral tablet (1 source) Opioid Agonist Start: 05-11-2022 Hurley 325 mg-5 mg oral tablet 1 tab(s), Oral, q4hr, 12 tab(s), Refill(s) 0, take one tab q4hr prn after procedure, [facility]/pharmacy #[id number], 185, cm, 04/14/22 [...] procedure, # 10 cap(s), Refills(s) 0, Pharmacy: [facility]/pharmacy #[id number], 185, cm, 04/14/22 15:12:00 EDT, Height/Length Dosing, 98, kg, 04/14/22 15:12:00 EDT, Weight Dosing Start Date: 05/11/22 Status: Ordered diazePAM 10 mg oral tablet (1 source) Benzodiazepine Start: 05-11-2022 Valium 10 mg Tab 10 mg = 1 tab(s), Oral, Once, take one hour prior to procedure, # 1 tab(s), Refills(s) 0, Pharmacy: [facility]/pharmacy #[id number], 185, cm, 04/14/22 [...] Test Name Value Interpretation Reference Range Facility Ambulatory Visit Summaryon 0 09-29-2023 Ambulatory Visit Summary YUNI CASTRO :1990 Visit Date:09/29/2023 Ambulatory Visit Instructions Your Diagnosis Otitis media BMI 27.0-27.9,adult Your Care Team Attending Physician - Lady Ruiz Primary Care Physician - Lady Ruiz This Is Your Medications List amoxicillin-clavulanate (Augmentin 875 mg oral tablet) levothyroxine (levothyroxine 112 mcg (0.112 mg) oral capsule) loratadine methylPREDNISolone (Medrol 4 mg Tab) multivitamin (Multi Vitamins oral tablet) Procedures Performed Vasectomy (05/20/2022), Appendectomy, Surgery. Discharge Vitals Temperature (Temporal Artery) 36.7 ?C Heart Rate (Peripheral) 81 Blood Pressure 122/70 Height 185 cm Height 73 in Weight 95.7 kg Weight 210.54 lb BMI 27.96 Medications What How Much When Why Instructions New amoxicillin-clavulanate (Augmentin 875 mg oral tablet) 1 Tablets By Mouth Every 12 hours Otitis media BMI 27.0-27.9,adult Duration: 7 Days Pickup at [facility]/pharmacy #[id number] New methylPREDNISolone (Medrol 4 mg Tab) 1 Packets By Mouth As Directed Otitis media BMI 27.0-27.9,adult Duration: 6 Days as directed on package labeling Pickup at [facility]/pharmacy #[id number] Unchanged levothyroxine (levothyroxine 112 mcg (0.112 mg) oral capsule) 1 Capsules By Mouth Every day Unchanged loratadine Every day Unchanged multivitamin (Multi Vitamins oral tablet) By Mouth Every day Pharmacy Information [facility]/pharmacy #[id number]: [address], [place] [phone] Allergies No Known Allergies Problems Ongoing - Any problem that you are currently receiving treatment for. Encounter for vasectomy Family history of prostate cancer Hypothyroid Otitis media Patient Survey You may receive a survey via text or e-mail asking about your office visit. Please share your experience with us by completing your survey. We appreciate your feedback and thank you for choosing us for your care. [facility] Family Medicine Office/Clini c Noteon 09-29-2023 Family Medicine Office/Clinic Note Chief Complaint ear pain, fever, chills HPI Staff Patient presents for acute visit. Fevers: 101 F yesterday for about 5 hours. No fever today Sinus congestion: no Sneezing: no Ear pain: little right ear Ear itching, popping, fullness, ringing, muffled hearing: no Ear drainage: no Swollen nodes: no Sore throat: only when swallowing Ear pain worse with chewing: no Itching: no Difficulty hearing: no Productive cough-brown in color body aches, chills yesterday, nothing today Patient feels much improved today versus yesterday. History of Present Illness pt presents today with ear pain fullness, popping, ringing Review of Systems PHQ Score Initial Depression Screen Score: 0 SCORE ROS - Provider Constitutional: no fever, no chills, no sweats, no fatigue Respiratory: no shortness of breath, no cough, no orthopnea, no wheezing., Ear pain, popping Cardiovascular: no chest pain, no palpitations, no edema. Neurologic: no headache, no dizziness, no numbness, no weakness. Physical Exam Vitals & Measurements T: 36.7 ?C(Temporal Artery) HR: 81(Peripheral) BP: 122/70 SpO2: 96% HT: 73 in HT: 185 cm WT: 95.7 kg WT: 210.54 lb BMI: 27.96 General: alert, no acute distress ENMT: oral mucosa moist, no pharyngeal erythema or exudate, MIRIAN TM and canals red, areas that look bloody Cardiovascular: regular rate and rhythm, normal peripheral perfusion Respiratory: Lungs CTA, respirations non labored Extremities: no deformity, no trauma Neurological: oriented x 4, LOC appropriate for age, CN II-XII intact, motor strength equal & normal bilaterally, speech normal Assessment/Plan 1. Otitis media (H66.90: Otitis media, unspecified, unspecified ear) MIRIAN OM noted on exam. TM and ear canals very red. bulging with clear fluid. 2 areas so red on left canal it looked as if it were bleeding at one time. will order Augmentin and medrol dose pack. all questions answered. RTC as needed Ordered: amoxicillin-clavulanate, = 1 tab(s), Oral, q12hr, X 7 day(s), # 14 tab(s), Refills(s) 0, Pharmacy: [facility]/pharmacy #[id number], 185, cm, 09/29/23 8:32:00 EST, Height/Length Dosing, 95.7, kg, 09/29/23 8:32:00 EST, Weight Dosing methylPREDNISolone, = 1 packet(s), Oral, As Directed, as directed on package labeling, X 6 day(s), # 21 tab(s), Refills(s) 0, Pharmacy: [facility]/pharmacy #[id number], 185, cm, 09/29/23 8:32:00 EST, Height/Length Dosing, 95.7, kg, 09/29/23 8:32:00 EST, Weight Dosing Influenza Type A&B POC 13315 Rapid COVID POC 64151 2. BMI 27.0-27.9,adult (Z68.27: Body mass index [BMI] 27.0-27.9, adult) BMI education complete Ordered: amoxicillin-clavulanate, = 1 tab(s), Oral, q12hr, X 7 day(s), # 14 tab(s), Refills(s) 0, [id number], cm, 09/29/23 8:32:00 EST, Height/Length Dosing, 95.7, kg, 09/29/23 8:32:00 EST, Weight Dosing methylPREDNISolone, = 1 packet(s), Oral, As Directed, as directed on package labeling, X 6 day(s), # 21 tab(s), Refills(s) 0, [id number], 185, cm, 09/29/23 8:32:00 EST, Height/Length Dosing, 95.7, kg, 09/29/23 8:32:00 EST, Weight Dosing Follow-up No qualifying data available Problem List/Past Medical History Ongoing Encounter for vasectomy Family history of prostate cancer Hypothyroid Otitis media Historical No qualifying data Procedure/Surgical History Vasectomy (05/20/2022), Appendectomy, Surgery. Medications Augmentin 875 mg oral tablet, 1 tab(s), Oral, q12hr levothyroxine 112 mcg (0.112 mg) oral capsule, 112 mcg= 1 cap(s), Oral, Daily, 5 refills loratadine, Daily Medrol 4 mg Tab, 1 packet(s), Oral, As Directed Multi Vitamins oral tablet, Oral, Daily Allergies No Known Allergies Social History Alcohol Current, Beer, 1-2 times per week, 09/29/2023 Substance Abuse - Denies Substance Abuse, 09/29/2023 Tobacco Never (less than 100 in lifetime) Tobacco Use:. Never Smokeless Tobacco Use:. Household tobacco concerns: No., 09/29/2023 Family History Diabetes mellitus: Father. Epilepsy: Father. Primary malignant neoplasm of prostate: Father and Grandparent. Immunizations Vaccine Date Status Comments influenza virus vaccine, inactivated 05/24/2023 Recorded influenza virus vaccine, inactivated 05/31/2022 Recorded SARS-CoV-2 [...] 04/30/1993 Recorded measles/mumps/rubella virus vaccine 09/24/1989 Recorded Lab Results Ambulatory Point of Care Results Influenza A POC: Negative (09/29/23 08:4 (more content not included)... [facility] Comment on above: Result Comment: Elec tronically Signed By: Lady Ruiz\.br\Date and Time Signed: 09/29/23 09:50 EST Physician Orderon 08-25-2023 Physician Order [id number] F [facility] Immunization Recordson 05-25 Immunization Records [id number]#[id number]: 127 [facility] Ambulatory Visit Summaryon 0 05-06-2023 Ambulatory [...] Tablets By Mouth Every day Pickup at [facility]/pharmacy #[id number] Unchanged levothyroxine (Synthroid) 75 Microgram By Mouth Every day Unchanged loratadine Every day Unchanged multivitamin (Multi Vitamins oral tablet) By Mouth Every day Pharmacy Information [facility]/pharmacy #[id number]: [address], [place] [phone] Allergies No Known Allergies Problems Ongoing - [...] Follow these instructions at home: ? Take kxie-qna-sldzghp and prescription medicines only as told by [...] yourse (more content not included)... [facility] Family Medicine Office/Clini c Noteon 05-06-2023 Family Medicine Office/Clinic Note HPI Staff Yuni is a 32 year old male presenting to [facility] care Establish Care: History: Any previous diagnosis: Hypothyroidism, seasonal allergies History of seeing any specialist: When was your last doctors visit: Last provider: Dr Pathak Any recent labs: TSH 06/20/22 11.720 04/16/23 [...] all questions answered. pt to return to [facility] in 6 weeks for a lab draw will adjust meds as needed. 2. BMI 27.0-27.9,adult (Z68.27: Body mass index [BMI] 27.0-27.9, adult) BMI education complete Orders: levothyroxine, 75 mcg = 1 tab(s), Oral, Daily, # 30 tab(s), Refills(s) 1, Pharmacy: [facility]/pharmacy #[id number], 185, cm, 05/06/23 [...] measles/mumps/rubella virus vaccine 09/24/1989 Recorded Normal [facility] Comment on above: Result Comment: Elec tronically Signed By: Lady Ruiz\.br\Date and Time Signed: 05/06/23 15:08 EDT Patient [...] Follow these instructions at home: ? Take emay-htc-ksnpjgr and prescription medicines only as told by [...] provider. Document Revised: 08/18/2022 Document Reviewed: 08/18/2022 [employer] Patient Education ? 2022 [employer]. Endocrinology Hypothyroidism Hypothyroidism is when the thyroid [...] energy (met[employer] (more content not included)... [facility] Lab Reportson 04-19-2023 Lab Reports [id number]#[id number]: 127 [facility] Lab Reports [id number]#[id number]: 127 [facility] Coding Summary.on 12-09-2022 Coding Summary. CD:[id number] Ww+P GhlYWQ+PC4ALPNuB99fkIVxf M8xF8AZCYkENtsaZHGPMHwNW qXtvlDoDH4hqOWcAPXl IC8+UE4bFISgEpukwVCys9O4 fSE6L18rii8hBXrbsAG3YHSe NfTfzxajp4tspXt8VDjpRrgx OyBt XKPjnN13DPQ8iK41Tp53gZQb zPZrk4zaiKg0VmMvDTHfEAC1 gIlsZVcrf8LmCPGuW38beTZj c2U6 LGAkiPahaOMyImGrxIN0sL2l AWrgnunmd4sowcxyDki2qv56 gNIma0W5sQK1W8YcomA3RSNs bGQg GguntDDKcL5hojbbn2iuwlve WvAeNBFsSTl3NPt2QUEifVxg IiOyRJ12NLM7QDVefgCvC4Tv LWFs fSxpDwU4e3M1Nq2XL4TWKjsf D8QWNUSPTNmekMC+MP25ux53 V1SmVpmsQzs6RXIcVHM0pUN5 aD0n JPJcXVwfa4A1fOR8V9AnquEf cu9vd4aeFTNkIFrfJ17djLUi t2V0RVUkqUQ7TPRisTulKhAf aG93 Oyc+BJVzhZhfz9IpRpsmc4hi y0aagEl3QbqeGTPhztZbgBsq WYK5w6MkDv1mBXVyuZJ8oEP1 aD0i JgEqJpF6RQydQ101GhVrzWJf FaxuM29fK1WecNF+PHRyPjx0 LELolRdiET5fN5VwTCMcwoni bGVm aVkaUG4tEUTosuzoUSTolN3h IIDzH1p6LtLiQrI0ECnsX4Zs LGItqmznUr54dT8iAoJbRgM4 MGlu O6ZqopI4ZSIdlFKbGJkiWOT6 O31sy9Q9JIGdJOLtGMA9yIK9 kX8qlAovffasqBSamPiikuLc dGlj JDnsFKokC714RBBodKfzAkFb ZGluZyBEYXRlOiAgMDQvMTIv MjAyMzwvdGQ+UDVeJUA6pAqk PSAn lFUuMEgzMw7jmQmyxVmsOU0y GEPuhfxbPORtnY5dMNFnzNHi zIodJG6pTXZpahlhh938QaDf MHB0 RKSmuDZiY0YonZ1sQqQiUEEp MYWjW5BsiHQoHZwxL070MInc QuZ3ITIrmsFgY7PbSABfrHuv OiB0 a3J6Kl0Om3YkvhhkE9AizPTh HsGdNpwjNYp9H0PgGoszjUL+ JV46IMToOA56TJc2TLM3pSfe PSdi CVOvQ1XwwI2lBkBsGNHkMMCr Oyc+PHRhYmxlIHdpZHRoPScx QLBsGgMqkUqmQH7kSw7pLTVk LWNv fCowlUZqNaAyo9qyBIMgNMdk MW6hlEteF9VabMS6AHQet8v4 Zd84M91xC8PuvHA+PGNvbCB3 aWR0 gD3hXbLlJqL9RPgxB679DlVp lWBvWfczj4kyi8otuZa5NtJ1 NSLfizPvnXtyPMV4l3VkCs21 Y29s IHdpZHRoPSIxNSUiIHZhbGln dv3asK8dNz5+GLTthHG2gLK4 rM2hFpFrCmE3UPckF128KgTr cCIv Scjhj1okx9ntmZx1UaMoENLq xbEnyOqlHDP2m4JfPp89O1Dn fYvvj9KpNou1wb33uGCik8S7 bGU9 J9SqGFJjdinuvMKaeThvMD1b MMXvdllvNXKoiY9hNQIoX9p1 WjMmCeJ9APzgY3DtbbH5ZWXo bGQg QASrtBSTvH7acwtne5apwyji FvQyUJNsXAt6YAg7ELOryCmd AtHvGGA8EsM3PUZ0vUDsdH6h bGln gwqznP1pDzn+YQB2xPKhnJJX FP3qJuddlCM+AXXvYTR8vNtr FQcfKKPbqX6gWQBsP7y3OhPn LjA1 CCsdT9GhenP1VMIijZRyWLNl rOVLtV5zvlhkn1cfsgxgSkUu CUWrSEa3VHq0QOCmgDwaMlYt ZWZ0 CaS2MMS2uDEuhZ0jyIzfntbg fQ3fMcx+QypiqUurTLR6AGi7 Q2BmMqg0BKMjuYlaSH9rrCRy ZGlu Kb6buVvhbYniPD1qOYPayhum h976IcZiu3vbFEIluVRpJTow VEZ3R52tq1G3XJXeTHGeGJP9 dGV4 zS7okXlvywqarWLatMjrxyJt aZqvXConARmzJ207ISOfwBxy BvFrFOq6C2HkLvw8TNYssJtb ZT0n eZRpYNwyEy5urDhqxVgrTL5z ACByoymsz267WjPbf7bhBDXv pFLvBBviCJU0T70fa3M4KEYe MDAw LZK2cPD6pF0bhFdpqcrvtLWy zAduepBoyAyqNTiyXTgcN266 RXWlrRycSpAkpAf8C3NiDex5 ZCBz vFikLS2dbGEwTEhcOc4ncJvz sDxbPX9aOGTrilrej523IdQe q7azHJJnkPCjKKmkBIB6F60t b3I6 CDJiNAElMVW7eTN9fU2reVxs bjogbGVmdDsgdmVydGljYWwt LTnuZ622LVTddLgtVfAcqYni bnQg YHxaJHa0B7MpQrcpcRL+PC90 QWBxZH54rAEejIYsb4gusTk8 ZxJzZCBuAQE5tUiwVNqzz8Np ZXIt M50qdYWmi1U7ZUEzsVuxcFBf PxGviKQ6dM8sWLlikuqxh5kb nxksHqsmf9owhr44gG51V98c IHdp OBIjHVMfLLLmICKegExzxg5v vS8zXg8+HICeiHX9aTO5hB6m DMJzTpD7CRcnO973CvVhjVRn Pjxj a7tvp3brkQi0VtB8QTWshlGf dMouXVQ4d8XeBo02P03xBEof ENTwTKYjZQHtOUAshMtnzo0q dG9w Ii8+TCYlxPX2wBX5gX7jQjTn GrA3GRimA276HhGlpEAlGfkj E75eZ1EhkVB+PYUjVlv8FDFu dHls MN3xnCPrKLcjAr4yXNC2UpKp WiIaYUlkD3IrLISwifhfdgoc qGC1RWEdRTOdeL05Jv7dlCrc MTBw gZUFtZ8fikgwd1rnipodPbNe UVPyRPp5HUy9IHDtyOztUoJb FFS6FpT4ZIL5jVIndP3uyAwe bjog qV4wU3HpUMGogsnlGu34aP6b EzPcYoW8GCxcTed+REVCTEFT OAgyUgARGrZTCXZAIX33HO09 dGQg w5I2eDU0U9GbBIVulafyoavw sQG8BWZkDUSpeI37lWJmYDtu Fb7xf7E6o854BJWeMMXntP90 Zm9u yNhuUPEzqGHNpI4wevyag1tp zyxjTxFtEUTkAJg4DQc0VZNy rRxfSgJbLAO6GuF4RYO2lLUd bC1h xTpnsqebsW6nLdx+MTAvMjYv PMw7STeyeKM+VYGpPKE9lZrh CRseRRLvqX4kWECvF2z3EhFx LjA1 RSxhL3PzSRHltjrtDu77xA7c QjGePoO8XFnsU9CsdiQ4BFUj fHKfOYelIGD5H31oe3J0VMRq MDAw JWW5jDM1pO1wmLjzlafktJRs uTztuiRvxLnaPBhuKRtuK128 ARYzaFfwEfB3MZugWEUmUU35 ZD48 qVCjb4C7rIM4S8ZnFOKccflu dwfmsLA3RFFlOANsaN66zCZv NQxcVd3bu9N1u034RLKsYSBk aW47 Gy6mnSavDWQkqZYGaU6nycyr i5mqsfyyIoWwODFuHNa3EYz9 FQKfpBvxWxOjBCY4PlX7SEY2 aWNh cU3kjAmcflocrR5nLgu+TWFs ZTwvdGQ+XGZnPVW1yHzzUOpj IWNvqF7oBWKyA6m9DpQgCwG4 MGlu C5UwGHVzzizwJf66zB1dGzFv UqI7QHapH2EgvjF4JXZdeJAt PKmjBLA3L32tn1A9PFNsYNYh MDA7 pOH5rJ1loPkqyuglhZIpyVoc arAedVfrNIehDQukE553TKNn tRxfFhwpVzMGhm3pOW1wHgmd dGQ+ BX88ul06O2PnJquyJjq1KWCt OIG8rHH6fK9hUQPnPXgdm5L3 uAB6G2TwfjGyia2ed8vhICOy ZTog K88dePPnx1O6IPKfjYS3BJDf pEzjLiRxzE00Qwn+PGNvbGdy y6JmOzspv9eas2xmoQl6ScZb JSIg ezEfaLmyKFN0s6WcRw67W21q IHdpZHRoPSIzMCUiIHZhbGln yh8ypT3qWd7+TGNkbKI4rZA4 aD0i KeHkPkK8FDazW844JiNpeOEg Btknl7bta3uzvQu7LePpFIYs icAlaIxbDUL4f0GdRm70J3Lr bGdy q4XkEte0zv38wKHzx9V2zLZ9 V8JeNQXzvqbrvACzwWewKQ8z IJBgvcieIDFukQ0pWZLrK0v1 OiAw BwM8TYwwA8IvweL5FFMwxNJv NVDnjJKTcS4undril9bnlefv HsAuINGkWSm0KEt5CTBglNkh OiBs CAK2CbA7HDP2rDRqsG4qnCvv xcuixR6cTej+FCi1c0jpsYIv TO0pgWD2IK28DX64yWBuk3J9 bGU9 F2NzPVPjmawwhjucuJB1XHQa UWQpwF67Ui6uzDpbIp5eYPTv EYR2DPGqeZDpP1KyyM4jAiJf MDAw XMMgV9WgyGKzDVcjE416VFss XsQ7RFYmgvXsA1RpGURaxTlb KxP4i9H2Mt7YGC52CV59XE40 dGQg l3P2eLF4Y4RoJAZxmvrjarpl vOZ3BUAjYVTbxQ84Ni7mgNjd Vg5oJGSmZXD1WCVgqYMcL7Sb bG9y JsBiEUXqAZMdQ4CkhCOqCGfu R808FPtkMyD7EHIyojUvP2Le TYCncBccUdN9u9J1Sr6KMl79 PC90 HY45uKRwn7P2pCM4S8LaYIJm mygcbminhHL4QZOyGQAkeH82 Jx0poRfdTp2oNDJoNKX6OXBc bWVz U7ZjjX2dRsDtVIQrFJUjS4As jIJlHIqlV951WEycCeO3VHOz qfTwJ8MwDIZilZjdQvV1c0F9 Jz5Q HTbmuwf0U8OdQxfhdFM+PC90 GMGzQL55iRYslDBjp9nisHn2 XsTeVRUeAOU6aXdiUSaox6Hn ZXIt E08doORd (more content not included)... [facility] FREE T3on 06-20-2022 FREE T3 2.51 pg/mlL Normal 2.18-3.98 [facility] Comment on above: Performed By: #### T SHELLEY, FT3 #### [facility] [address] [place] [address] Dr. Felipe Johnson FREE T4on 06-20-2022 Free T4 [Mass/Vol] 0.86 ng/dL Normal 0.76-1.46 [facility] Comment on above: Performed By: #### F T4 #### [facility] [address] [place] [address] Dr. Felipe Johnson TSHon 06-20-2022 TSH 11.720 uIU/mL Critically high 0.358-3.740 [facility] Comment on above: Performed By: #### T SHELLEY, FT3 #### [facility] [address] [place] [address] Dr. Felipe Johnson FREE T3on 04-18-2022 FREE T3 2.30 pg/mlL Normal 2.18-3.98 [facility] Comment on above: Performed By: #### F T3 #### [facility] [address] [place] [address] Dr. Felipe Johnson FREE T4on 04-18-2022 Free T4 [Mass/Vol] 0.54 ng/dL Critically low 0.76-1.46 [facility] Comment on above: Performed By: #### F T4 #### [facility] [address] [place] [address] Dr. Felipe Johnson [facility] CBC AUTO DIFFon 04-16-2022 BASO # 0.1 103/ul Normal 0.0-0.1 [facility] Comment on above: Performed By: #### H FPFCBC #### [facility] [address] [place] [address] Dr. Felipe Johnson Basophils/100 WBC (Bld) 1.1 % Normal 0.2-2.0 [facility] Comment on above: Performed By: #### H FPFCBC #### [facility] [address] [place] [address] Dr. Felipe Johnson EO # 0.3 103/ul Normal 0.0-0.7 [facility] Comment on above: Performed By: #### H FPFCBC #### [facility] [address] [place] [address] Dr. Felipe Johnson Eosinophils/100 WBC (Bld) 7.4 % Critically high 0.9-7.0 [facility] Comment on above: Performed By: #### H FPFCBC #### [facility] [address] [place] [address] Dr. Felipe Johnson Erythrocyte distribution width (RBC) [Ratio] 12.3 % Normal 11.0-15.0 [facility] Comment on above: Performed By: #### H FPFCBC #### [facility] [address] [place] [address] Dr. Felipe Johnson Hematocrit (Bld) [Volume fraction] 43.0 % Normal 42.0-54.0 [facility] Comment on above: Performed By: #### H FPFCBC #### [facility] [address] [place] [address] Dr. Felipe Johnson Hemoglobin (Bld) [Mass/Vol] 14.3 g/dL Normal 14.0-18.0 [facility] Comment on above: Performed By: #### H FPFCBC #### [facility] [address] [place] [address] Dr. Felipe Johnson IG # 0.01 10e3/ul Normal 0.00-0.03 [facility] Comment on above: Performed By: #### H FPFCBC #### [facility] [address] [place] [address] Dr. Felipe Johnson IG % 0.2 % Normal 0.0-0.5 [facility] Comment on above: Performed By: #### H FPFCBC #### [facility] [address] [place] [address] Dr. Felipe Johnson LYMPH # 1.9 103/ul Normal 1.2-3.8 [facility] Comment on above: Performed By: #### H FPFCBC #### [facility] [address] [place] [address] Dr. Felipe Johnson Lymphocytes/100 WBC (Bld) 40.3 % Normal 20.5-60.0 [facility] Comment on above: Performed By: #### H FPFCBC #### [facility] [address] [place] [address] Dr. Felipe Johnson MCH (RBC) [Entitic mass] 30.2 pg Normal 25.9-34.0 [facility] Comment on above: Performed By: #### H FPFCBC #### [facility] [address] [place] [address] Dr. Felipe Johnson MCHC (RBC) [Mass/Vol] 33.3 g/dL Normal 29.9-35.2 [facility] Comment on above: Performed By: #### H FPFCBC #### [facility] [address] [place] [address] Dr. Felipe Johnson MCV (RBC) [Entitic vol] 90.9 fL Normal 80.0-94.0 [facility] Comment on above: Performed By: #### H FPFCBC #### [facility] [address] [place] [address] Dr. Felipe Johnson MONO # 0.6 103/ul Normal 0.3-0.8 [facility] Comment on above: Performed By: #### H FPFCBC #### [facility] [address] [place] [address] Dr. Felipe Johnson Monocytes/100 WBC (Bld) 13.9 % Critically high 1.7-12.0 [facility] Comment on above: Performed By: #### H FPFCBC #### [facility] [address] [place] [address] Dr. Felipe Johnson NEUT # 1.7 103/ul Normal 1.4-6.5 [facility] Comment on above: Performed By: #### H FPFCBC #### [facility] [address] [address] [address] Felipe Johnson Neutrophils/100 WBC (Bld) 37.1 % Critically low 43.0-75.0 [facility] Comment on above: Performed By: #### H FPFCBC #### [facility] [address] [address] [address] Felipe Johnson Platelet mean volume (Bld) [Entitic vol] 9.7 fL Normal 9.5-13.5 [facility] Comment on above: Performed By: #### H FPFCBC #### [facility] [address] [place] [address] Dr. Felipe Johnson PLT 207 103/ul Normal 150-450 [facility] Comment on above: Performed By: #### H FPFCBC #### [facility] [address] [place] [address] Dr. Felipe Johnson RBC 4.73 106/ul Normal 4.70-6.10 [facility] Comment on above: Performed By: #### H FPFCBC #### [facility] [address] [place] [address] Dr. Felipe Johnson WBC 4.6 103/ul Normal 4.0-11.0 [facility] Comment on above: Performed By: #### H FPFCBC #### [facility] [address] [place] [address] Dr. Felipe Johnson [employer] PROFILEon 022 Albumin [Mass/Vol] 4.4 g/dL Normal 3.4-5.0 [facility] Comment on above: Performed By: #### H FPF #### [facility] [address] [place] [address] Dr. Felipe Johnson Albumin/Globulin [Mass ratio] 1.3 {ratio} Normal [facility] Comment on above: Performed By: #### H FPF #### [facility] [address] [address] [address] Felipe Johnson ALP [Catalytic activity/Vol] 47 U/L Normal 46-116 [facility] Comment on above: Performed By: #### H FPF #### [facility] [address] [address] [address] Felipe Johnson ALT [Catalytic activity/Vol] 34 U/L Normal 16-63 [facility] Comment on above: Performed By: #### H FPF #### [facility] [address] [address] [address] Felipe Johnson AST [Catalytic activity/Vol] 24 U/L Normal 15-37 [facility] Comment on above: Performed By: #### H FPF #### [facility] [address] [place] [address] Dr. Felipe Johnson Bilirubin [Mass/Vol] 0.5 mg/dL Normal 0.2-1.0 [facility] Comment on above: Performed By: #### H FPF #### [facility] [address] [place] [address] Dr. Felipe Johnson Calcium [Mass/Vol] 9.2 mg/dL Normal 8.5-10.1 [facility] Comment on above: Performed By: #### H FPF #### [facility] [address] [place] [address] Dr. Felipe Johnson Chloride [Moles/Vol] 103 mmol/L Normal 98-107 [facility] Comment on above: Performed By: #### H FPF #### [facility] [address] [place] [address] Dr. Felipe Johnson CHOL-HDL RATIO NORM SEE BELOW Normal [facility] Comment on above: Result Comment: 3.3 - 4.4 LOW RISK 4.4 - 7.1 AVERAGE RISK 7.1 - 11.0 MODERATE RISK >11.0 HIGH RISK Performed By: #### H FPF #### [facility] [address] [place] [address] Dr. Felipe Johnson Cholesterol [Mass/Vol] 170 mg/dL Normal <=200 [facility] Comment on above: Performed By: #### H FPF #### [facility] [address] [place] [address] Dr. Felipe Johnson Cholesterol in HDL [Mass/Vol] 55 mg/dL Normal 40-60 [facility] Comment on above: Performed By: #### H FPF #### [facility] [address] [address] [address] Felipe Johnson Cholesterol in LDL [Mass/Vol] 103.2 mg/dL Normal [facility] Comment on above: Performed By: #### H FPF #### [facility] [address] [address] [address] Felipe Johnson Cholesterol.total/ Cholesterol in HDL [Mass ratio] 3.1 {ratio} Normal [facility] Comment on above: Performed By: #### H FPF #### [facility] [address] [place] [address] Dr. Felipe Johnson CO2 [Moles/Vol] 29.5 mmol/L Normal 21.0-32.0 [facility] Comment on above: Performed By: #### H FPF #### [facility] [address] [address] [address] Felipe Johnson Creatinine [Mass/Vol] 0.94 mg/dL Normal 0.70-1.30 [facility] Comment on above: Performed By: #### H FPF #### [facility] [address] [place] [address] Dr. Felipe Johnson Globulin (S) [Mass/Vol] 3.5 g/dL Normal [facility] Comment on above: Performed By: #### H FPF #### [facility] [address] [address] [address] Felipe Johnson Glucose [Mass/Vol] 89 mg/dL Normal 74-106 [facility] Comment on above: Performed By: #### H FPF #### [facility] [address] [address] [address] Felipe Johnson HDL NORMAL > or = 60 mg/dl - LO W CARDIOVASCULAR RISK <40 mg/dl - HIGH CARDIOVASCULAR RISK Normal [facility] Comment on above: Performed By: #### H FPF #### [facility] [address] [address] [address] Felipe Johnson LDL CALC NORMAL SEE BELOW Normal [facility] Comment on above: Result Comment: <100 mg/dl OPTIMAL 100 - 129 mg/dl NEAR OR ABOVE OPTIMAL 130 - 159 mg/dl BORDERLINE HIGH 160 - 189 mg/dl HIGH >190 mg/dl VERY HIGH Performed By: #### H FPF #### [facility] [address] [address] [address] Felipe Johnson Potassium [Moles/Vol] 4.0 mmol/L Normal 3.5-5.1 [facility] Comment on above: Performed By: #### H FPF #### [facility] [address] [address] [address] Felipe Johnson Protein [Mass/Vol] 7.9 g/dL Normal 6.4-8.2 [facility] Comment on above: Performed By: #### H FPF #### [facility] [address] [address] [address] Felipe Johnson Sodium [Moles/Vol] 139 mmol/L Normal 136-145 [facility] Comment on above: Performed By: #### H FPF #### [facility] [address] [address] [address] Felipe Johnson Triglyceride [Mass/Vol] 59 mg/dL Normal <=150 [facility] Comment on above: Performed By: #### H FPF #### [facility] [address] [address] [address] Felipe Johnson TSH 82.125 uIU/mL Critically high 0.358-3.740 [facility] Comment on above: Performed By: #### H FPF #### [facility] [address] [address] [address] Felipe Johnson Urea nitrogen [Mass/Vol] 15.0 mg/dL Normal 7.0-18.0 [facility] Comment on above: Performed By: #### H FPF #### [facility] [address] [address] [address] Felipe Johnson Urea nitrogen/Creatinin e [Mass ratio] 16.0 mg/mg Normal [facility] Comment on above: Performed By: #### H FPF #### [facility] [address] [place], [place] [address] Dr. Felipe Johnson VLDL CALC 11.8 mg/dL Normal [facility] Comment on above: Performed By: #### H FPF #### [facility] [address] [place], [place] [address] Dr. Felipe Johnson Encounters Encounter Date Encounter Type Care Provider Facility Start: 09-29-2023 End: 09-30-2023 ambulatory Lady L Andrea Facility:[facility] Start: 05-06-2023 End: 05-07-2023 ambulatory Lady L Andrea Facility:[facility] Start: 04-19-2023 ambulatory Lady Andrea Facility:[facility] Start: 08-24-2022 End: 08-24-2022 Lab Drop off Zen MICHELLE [facility] Start: 06-20-2022 End: 06-21-[address] FRAN PATHAK Facility:[facility] Start: 04-18-2022 End: 04-19-[address] FRAN PATHAK Facility:[facility] Start: 04-16-2022 End: 04-17-[address] FRAN PATHAK Facility:[facility] Procedures Date Procedure Procedure Detail Performing Clinician Start: 05-20-2022 Vasectomy Zen Crews Appendectomy Zen MICHELLE Payers Date Payer Category Payer Unknown [id number] 1990 Unknown [id number] 1988 Unknown [id number] 1988 Unknown [id number] 1961 Self-pay [id number] 1961 Unknown [id number] Unknown [id number] Social History Date Type Detail Facility Start: 04-14-2022 Tobacco smoking status Never s moked tobacco (finding) [facility] Jorge Alberto Sex Assigned At Male [facility] Evaluation + Plan note 08-24-2022 Laboratory Note Date & Type Note Facility 08-24-2022 Evaluation + Plan note Diagnostic Tests PendingSemen Analysis Post Vasectomy 08/24/22Sperm Morphology 08/24/22 Future Scheduled TestsSemen Analysis Post Vasectomy 06/09/22 [facility] Hospital course Narrative Note Date & Type Note Facility Hospital course Narrative No data available for this section [facility] Hospital Discharge instructions Note Date & Type Note Facility Hospital Discharge instructions No data available for this section [facility] Progress note Note Date & Type Note Facility Progress note No data available for this section [facility] Summary Purpose Family History No Family History Records FoundNo Family History Records Found Advance Directives No Advanced Directives Records FoundNo Advanced Directives Records Found Additional Source Comments (unrecognized sect ion and content) No Status Records FoundNo Status Records Found INFORMATION SOURCE (unrecogn ized section and content) DATE CREATED AUTHOR 06/25/2022 [facility] DATE CREATED AUTHOR AUTHOR'S ORGANIZ ATION 10/01/[address] [facility] Patient Care team informatio n (unrecognized section and content) Personnel Name: FRAN PATHAK MD Address: Address: [address] [place] [id number] FOR RECORDS PERTAINING TO PATIENTS WHO ARE [...] BE BASED ON THE PRIMARY CLINICAL RECORDS. [facility]. provides no warranty or guarantee of the accuracy or completeness of information in this document.
== END 2023-10-23 08:46 | disposition home or self-care (01) ==
LOC: LAB 08:45
PROVIDERS: PCP Nurse Practitioner; Visit Provider Nurse Practitioner
DX: E03.9 Hypothyroidism, unspecified (principal)
CPT/HCPCS: 36415; 84443

== ENCOUNTER 2023-11-04 19:10 | Outpatient (OUT) | payer OTHER, SELFPAY ==
--- OUTSIDE RECORDS SUMMARY | 2023-10-29 16:57 | XMS_ITS | CCD ---
Author Name Unknown Address [address] [place] [address] Organization [facility] Care Team Providers Care Hand Clerical Verifier Name Role Phone BAHMAN, DR FRAN Crews [...] tablet (1 source) Opioid Agonist Start: 05-11-2022 Arbon 325 mg-5 mg oral tablet 1 tab(s), Oral, q4hr, 12 tab(s), Refill(s) 0, take one tab q4hr prn after procedure, [facility]/pharmacy #[id number], 185, cm, 04/14/22 15:12:00 EDT, Height/Length Dosing, 98, kg, 04/14/22 15:12:00 EDT, Weight Dosing Start Date: 05/11/22 Status: Ordered cephalexin 500 mg oral capsule (1 source) Cephalosporin Antibacterial Start: 05-11-2022 take 1 capsule by mouth twice daily Keflex 500 mg Cap 500 mg = 1 cap(s), Oral, BID, start one day prior to procedure, # 10 cap(s), Refills(s) 0, Pharmacy: [facility]/pharmacy #[id number], 185, cm, 04/14/22 15:12:00 EDT, Height/Length Dosing, 98, kg, 04/14/22 15:12:00 EDT, Weight Dosing Start Date: 05/11/22 Status: Ordered diazePAM 10 mg oral tablet (1 source) Benzodiazepine Start: 05-11-2022 Valium 10 mg Tab 10 mg = 1 tab(s), Oral, Once, take one hour prior to procedure, # 1 tab(s), Refills(s) 0, Pharmacy: [facility]/pharmacy #[id number], 185, cm, 04/14/22 15:12:00 EDT, Height/Length [...] BMI 27.0-27.9,adult Duration: 7 Days Pickup at [facility]/pharmacy #[id number] New methylPREDNISolone (Medrol 4 mg Tab) 1 Packets By Mouth As Directed Otitis media BMI 27.0-27.9,adult Duration: 6 Days as directed on package labeling Pickup at [facility]/pharmacy #[id number] Unchanged levothyroxine (levothyroxine 112 mcg (0.112 mg) oral capsule) 1 Capsules By Mouth Every day Unchanged loratadine Every day Unchanged multivitamin (Multi Vitamins oral tablet) By Mouth Every day Pharmacy Information [facility]/pharmacy #[id number]: [address], [place] [phone] Allergies No Known Allergies Problems Ongoing - [...] for choosing us for your care. Liliana [facility] Family Medicine Office/Clini c Noteon 09-29-2023 Family [...] day(s), # 14 tab(s), Refills(s) 0, Pharmacy: [facility]/pharmacy #[id number], 185, cm, 09/29/23 8:32:00 EST, Height/Length Dosing, 95.7, kg, 09/29/23 8:32:00 EST, Weight Dosing methylPREDNISolone, = 1 packet(s), Oral, As Directed, as directed on package labeling, X 6 day(s), # 21 tab(s), Refills(s) 0, Pharmacy: [facility]/pharmacy #[id number], 185, cm, 09/29/23 8:32:00 EST, Height/Length Dosing, 95.7, kg, 09/29/23 8:32:00 EST, Weight Dosing Influenza Type A&B POC 17195 Rapid COVID POC 05298 2. BMI 27.0-27.9,adult (Z68.27: Body mass index [BMI] 27.0-27.9, adult) BMI education complete Ordered: amoxicillin-clavulanate, = 1 tab(s), Oral, q12hr, X 7 day(s), # 14 tab(s), Refills(s) 0, [id number] 185, cm, 09/29/23 8:32:00 EST, Height/Length Dosing, 95.7, kg, 09/29/23 8:32:00 EST, Weight Dosing methylPREDNISolone, = 1 packet(s), Oral, As Directed, as directed on package labeling, X 6 day(s), # 21 tab(s), Refills(s) 0, [id number], 185, cm, 09/29/23 8:32:00 EST, Height/Length [...] Negative (09/29/23 08:4 (more content not included)... [facility] Comment on above: Result Comment: Elec tronically Signed By: Lady Ruiz\.br\Date and Time Signed: 09/29/23 09:50 EST Physician Orderon 08-25-2023 Physician Order [id number] F [facility] Immunization Recordson 05-25 Immunization Records [id number]#[id number]: 127 [facility] Ambulatory Visit Summaryon 0 05-06-2023 Ambulatory [...] Tablets By Mouth Every day Pickup at [facility]/pharmacy #[id number] Unchanged levothyroxine (Synthroid) 75 Microgram By Mouth Every day Unchanged loratadine Every day Unchanged multivitamin (Multi Vitamins oral tablet) By Mouth Every day Pharmacy Information [facility]/pharmacy #[id number]: [address], [place] [phone] Allergies No Known Allergies Problems Ongoing - [...] Follow these instructions at home: ? Take mdcx-jdg-jievdtm and prescription medicines only as told by [...] yourse (more content not included)... Normal [facility] Family Medicine Office/Clini c Noteon 05-06-2023 Family Medicine Office/Clinic Note HPI Staff Yuni is a 32 year old male presenting to [facility] care Establish Care: History: Any previous diagnosis: [...] all questions answered. pt to return to [facility] in 6 weeks for a lab draw will adjust meds as needed. 2. BMI 27.0-27.9,adult (Z68.27: Body mass index [BMI] 27.0-27.9, adult) BMI education complete Orders: levothyroxine, 75 mcg = 1 tab(s), Oral, Daily, # 30 tab(s), Refills(s) 1, Pharmacy: [facility]/pharmacy #[id number], 185, cm, 05/06/23 14:44:00 EDT, Height/Length [...] measles/mumps/rubella virus vaccine 09/24/[address] [facility] Comment on above: Result Comment: Elec tronically [...] Follow these instructions at home: ? Take cukj-lla-dnlzsrc and prescription medicines only as told by [...] provider. Document Revised: 08/18/2022 Document Reviewed: 08/18/2022 [employer] Patient Education ? 2022 [employer]. Endocrinology Hypothyroidism Hypothyroidism is when the thyroid [...] energy (metabolis (more content not included)... Normal [facility] Lab Reportson 04-19-2023 Lab Reports [id number]: 127 [facility] Lab Reports [id number]#1.00CD: 127 [facility] Coding Summary.on 12-09-2022 Coding Summary. CD:[id number] Ww+P GhlYWQ+CB4RDGQhG24gkGToa L4rU2RMHZvGVieeLCPHXKmBC nVufxNbIE3qcHEmOSFr IC8+RV5iLEHpJvdjaGFey5R3 uNN8G66imi1sUBjsnDB7KBDh MjGfvzrrk6gtaSx3XLpeQjqs OyBt JWQfhY32SHR6jR35Lh27wTTs jSKwi2ghqBx4DvUaZAIyIIK3 rUywNIgey1GcXFLwX46beHFe c2U6 MZXdeMbfeVIzGjNscPD8dT5q NTgzqssik2jejmucDwd4os90 mKRzn1A4qJO0C2HjjfD7HOHg bGQg EioixAUMuE2bilxnc1giomza XeMsHCVvUUw4YKp5XQPlzDwk YdYdQI73BCB2UPEsanBeH6Xz LWFs nPrnQfC0h6Y8Bq9BJ9TLXhll N0ZNJDQOVXgxaYA+WM97bs85 T9XcSnobOvt3GJZdYJT1uBX9 aD0n OSCoVFmle7C7vAH9V6WswmEv nj6na9otOMJgBVkzN80ypSIz j3T3PZLpePI4LTSibGvvFdUq aG93 Oyc+RFYxcJezd9BvZsdci9rw i5pyxEc3TucvDMAkalTzvWdj QZJ8t2PbRn1mGSMztNC7bBE1 aD0i UeJxHeO5PSqzB090UsRrrJXo BncnJ14iY8PiiWA+PHRyPjx0 HROseSqcFQ5gC2CwQTQjhgdt bGVm tZhmIG7sBJImjmbnCKCxnP7v EJMnE5s1JrMpXlL9OUtaS7Sv GLHezcqsMu90nG5hMqZdAmL5 MGlu O6RtldF6MSLtqVLbKMktKML6 D55bp7U4JBIfICMtTON0eLN9 tA9cgXuwnpajpQTyjVlmhpOi dGlj KXohGOojJ898NHEaiTzjYqNw ZGluZyBEYXRlOiAgMDQvMTIv MjAyMzwvdGQ+URApIYW3jRaw PSAn pOFyUVppGe6paEapoKyuGI5d FFCsjbtmZTIncW7pXSPijENn sOblAJ1lWYGldlznx215OkGw MHB0 JPJzcQHcZ7YguH4xTkEdHMXg PAWaF4CrmGAoRDvjG702TVzm JsZ3CFZxazVcM4SuFDKdmWdq OiB0 x7I6Sc5Nb3PfrhmtN8GyrVSr DlLjPeiiWNp3X6LpDiejvAQ+ CB97CPTrQO69NOn8MSN4uJli PSdi NPIlT3YvcG5lHvZbAQWdQZAt Oyc+PHRhYmxlIHdpZHRoPScx AGMzMwXrnNquJY4aVa8tLIVc LWNv nNarcNOtExMea8izSICyOFiy PG8nkUmeI7SmnWV1PKSoz1y3 Kn59G01mA4FviDW+PGNvbCB3 aWR0 lC1iUhLoFzR9QRmcM079BdTf tSYrPbdkh7kxp9uzsOk4IzE6 JOKkalDbnSiaHII2y0BtRc92 Y29s IHdpZHRoPSIxNSUiIHZhbGln yn0awZ7eJo8+SHLkeQX7dGT1 jP7sFhSrDoH9TYbyJ558DbHp cCIv Ywoxj4qta8gvzJm5PhJpABJq jeRicCwhFIQ7m5IqEn51V6Xe uCswb6RwFit5li30uGGbp4A8 bGU9 A0OkRZVmfwtcpHWjoJdsFW0g NLFdpehwLJSvwW0xGWVcB2i4 KdWtMpM1OChuO1GqifD8SWCu bGQg XYAkbEPNmN2zkghpl6fhwavb FuUnWGOoDZg0NTu0OBZofDsv VrAsONL5SsZ1DRP5sWPmvH9l bGln kovocC4bSxg+UQZ5wKMsjHZI PO7hMdeeqOZ+TNVeTPT0zVix NGrlVAAjrK2zUEOtL4p0DtEb LjA1 GMmgR9SsumD5WPOmvRPaZNJb uDVVkY9wkuhcx6tmthirExKa KQNnTGk8UUp3YXLxwSjgGxMj ZWZ0 LlV1IJM8cRVycG0kePbjsrbb dJ0fMpl+KyefbBveDTZ5FJu4 M6MiCjs4BNLohBdwIB0qwJOl ZGlu Rg8ihSgoiRwfXD3gVLAatkvo r475WlNpx9vrEJAtyEMfTAoj XZK9X47dn0H0XNEtQCQeTJI5 dGV4 bO9bxNxhfdfxpCBzjInjrfBr nFlbIVtaEUkfB563IBSxiYcb WyVvIUy0Y8LnNfz5HZGwjZli ZT0n jXQdUPesAw2qnGilyEonKB0z JIRfqbzut358LyLiz5bsBRQf eVAdULlpUIE6U42gk3J7TSIk MDAw YWM1nGB8tP9twBkvflldxQKu gKefzxGdgUlnMDyyTSohX809 UBPggQenBkMqyDq5E1KaLvb8 ZCBz rCaiNM3iwFRjHDyoHd8avEfc aVcwTM0lVFKqvilai706XvWy p2dnNNEckZDfJMehNZL2K99w b3I6 XUSpRKIqWYM9iAP0uK8qfZpx bjogbGVmdDsgdmVydGljYWwt EXtxI956ZAPwwFkmKgFyeGrv bnQg INyfUCx3S1AjAjgcpIA+PC90 CCFjEV35aGZlsACht5kmoTg5 RyNrYFYyIIL5dQgqBAvwa9Hm ZXIt J99ivEWtv2T9RQNtzLpouYPa JgZewDN9sW4lASbyuhlkv0bw riomQcpsb8sswo48gF14U69h IHdp IQJvBAEfFDTkWZDetMjyxe8l sU9kKu5+RLDqoWV3qBR2uN9a NHQdSnO1ORhyZ481PtFnsRVb Pjxj q8orw3umsXx7DhY5UHOsqrQx hJteGLE2u1FmXe15C25uRGzc QPZgMSQdMGDnCKSrsQipwe5y dG9w Ii8+TJYyjJZ6uLY4iZ9pYkKm YkU6RPdbX777VcXubCCjQnkk M03nL0NmrBQ+CQJsKnv4VNKz dHls YA3clBZiMLrrKb7yACC4VsNt KeDzYKdkO2HvCMKivisgnpmi lRN7IYRkVCZxoH29Ys4olFcu MTBw hUUUcY0tfkaxm5bwbzuaChOn YDYzPZq8OKa0GGJsjFfqBySb FWV9HxU8BPF7hRHltL4zqTpr bjog oI9eO6UnXQFmkldhNm01dN8l CkPbGoF5KLkpDzd+REVCTEFT TAqvBwCNIsEVDOFNRO54ZT07 dGQg j1X9vWO2U4KjNKJdhgwrapbg tKD7RPJrHXHfyF58fYVlNLoj Ag8fj4N6r670NJXvWLEppY11 Zm9u hManRYPixTPCiH0blldsq9mw gecqBcBzWVXePSr1LRx4KWJa eAseYnSxCKQ6WmW6YVX2yNHt bC1h sWdrvzrhoH2dDsh+MTAvMjYv KXw1JPomyDS+YXGuOOK6gHed LMbrVXWocU4yEKKiF5d3BkLb LjA1 QSvjV6TzTONfxtpgPy28eQ4d OiPpHpV9WVbjU2NxhmL9XDAc cRBpXZrvXPN0X71lz5S9WEHi MDAw GPY4wXL1rD7tqPztadhzsLHb jYhakwHtrXnyKJojHDrhF697 YQKqzKpuTgG4FPslRMRyQB99 ZD48 dEWbn2C6rJY5B0SjCYXwiecy nuyqjNM2HGDdAKMvdJ31lFFx HJhrDe1uk2T0l606LENvHEOu aW47 Hq2ktTceCHHtlJZKzH7kxqhi t9ciwdwlEhYqETZuKGi1KPe6 ZVFcuTjzYtPxQVU0TlG9PJU0 aWNh uQ7axIjgsxguyV4jMpg+TWFs ZTwvdGQ+AKRqFTJ2vCrzEXta DVIsaT5sAZDcL7a2OlTeQsF1 MGlu U7PdAIRozoghPf26dI1hWqNd FqU7RVzjR6YeicL7OGEdxJYb XIryXPM0D08ux6E7KPDdEWJs MDA7 lMZ5pH6peLzmikxmxMRbzMdq hsBwrJzvGYqeQEedY545LRIq uBllQydsJpIWbl3qOY2xVgxq dGQ+ VC43ro49N2LrFtphEmo1HHIi MAS5xMQ0hJ8aNEVkSDpio0E5 jYN7Y5KyxcXccj2lr2srLELv ZTog K97gbQGbb6P4IULysZU1EUUj tOtkOaOkrO10Zdr+PGNvbGdy y3NqGwflz4rid7krzAi2OyKw JSIg ekBogLeiMQD1l3DvUb86L63m IHdpZHRoPSIzMCUiIHZhbGln cy5ygF0rLs7+QCMchOK9uZL9 aD0i AkNqRaJ2NVoeW602KsQkaKEx Uqazo0gcu2jixIf6RwIzPFYo xrIjkRdgDUN0f5RgUq96C8Oo bGdy w0MrDgc5cl91gIVun9V4kHN6 E7IdFJBzthddnVDtqJerHO4m LWBjzcnlUTZpzA9pUUWbF1t1 OiAw MuP0PBvyH0OqbgK4QHTemVHg DJFjeHIUvI6ndjand3faqnzb NkOlNWKtFEb3KSe2RNChlBuk OiBs ZLU9XqX5DNB0vMPeyL6rvYov aeoziB6tDvl+ADc7e0zvtXWn IS7txVA0ZJ09GJ92kCXzk9F7 bGU9 L8YpFVNhqnktqtnhdON9RMQg MMWkbM72Bv4oqKifTk5eCSEb VIE2CCEgeDCbH9WzmE0aLsAy MDAw OKLaN6UyaCRlEKsiJ491GUiu XjR0ZSPoyrZbP9EcSALqwKrr IhT0a6M5Gu5NZF01ZL06BH36 dGQg b1S9mNA9H3NiPUKvfvrcmxmi dUE8MZHxAPLmtC75Pf2nfVaa Pb2fXQEsJYY8NTFyeGJpZ6Fd bG9y YcHpDBNrGCXuX7DtxIZcWLiu Y044HFvcNxM7JNFazfHbK3Hm JXRxnRbbUhA3b7S2By4UHq95 PC90 WT10fEAex0P7sPE2Y8IlUOVh rsbmbwrelAL7YROtVZGxuJ93 Ne9flIifKs7jBHOdWDT2HUDi bWVz E1TgeA4zFnTqPQFoHZQjO7Ym yVKuNLncJ517HNonTpL8CAXz ekWuJ9RfFNVhjLkdHwY3o2Y8 Jz5Q ELvdtqv8T7BuHelqgFZ+PC90 RIVeJD88sDOpaQQdq9vioUk4 WuNdOWRzGGT8pNecYVdjc0Ur ZXIt B30tiUUl (more content not included)... Normal [facility] FREE T3on 06-20-2022 FREE T3 2.51 pg/mlL Normal 2.18-3.98 [facility] Comment on above: Performed By: #### T SHELLEY, FT3 #### [facility] [address] [place] [address] Dr. Felipe Johnson FREE T4on 06-20-2022 Free T4 [Mass/Vol] 0.86 ng/dL Normal 0.76-1.46 [facility] Comment on above: Performed By: #### F T4 #### [facility] [address] [place] [address] Dr. Felipe Johnson TSHon 06-20-2022 TSH 11.720 uIU/mL Critically high 0.358-3.740 [facility] Comment on above: Performed By: #### T SHELLEY, FT3 #### [facility] [address] [place] [address] Dr. Felipe Johnson FREE T3on 04-18-2022 FREE T3 2.30 pg/mlL Normal 2.18-3.98 [facility] Comment on above: Performed By: #### F T3 #### [facility] [address] [place] [address] Dr. Felipe Johnson FREE T4on 04-18-2022 Free T4 [Mass/Vol] 0.54 ng/dL Critically low 0.76-1.46 [facility] Comment on above: Performed By: #### F T4 #### [facility] [address] [place] [address] Dr. Felipe Johnson [facility] CBC AUTO DIFFon 04-16-2022 BASO # 0.1 103/ul Normal 0.0-0.1 [facility] Comment on above: Performed By: #### H FPFCBC #### [facility] [address] [place] [address] Dr. Felipe Johnson Basophils/100 WBC (Bld) 1.1 % Normal 0.2-2.0 [facility] Comment on above: Performed By: #### H FPFCBC #### [facility] [address] [place] [address] Dr. Felipe Johnson EO # 0.3 103/ul Normal 0.0-0.7 [facility] Comment on above: Performed By: #### H FPFCBC #### [facility] [address] [place] [address] Dr. Felipe Johnson Eosinophils/100 WBC (Bld) 7.4 % Critically high 0.9-7.0 [facility] Comment on above: Performed By: #### H FPFCBC #### [facility] [address] [place] [address] Dr. Felipe Johnson Erythrocyte distribution width (RBC) [Ratio] 12.3 % Normal 11.0-15.0 [facility] Comment on above: Performed By: #### H FPFCBC #### [facility] [address] [place] [address] Dr. Felipe Johnson Hematocrit (Bld) [Volume fraction] 43.0 % Normal 42.0-54.0 [facility] Comment on above: Performed By: #### H FPFCBC #### [facility] [address] [place] [address] Dr. Felipe Johnson Hemoglobin (Bld) [Mass/Vol] 14.3 g/dL Normal 14.0-18.0 [facility] Comment on above: Performed By: #### H FPFCBC #### [facility] [address] [place] [address] Dr. Felipe Johnson IG # 0.01 10e3/ul Normal 0.00-0.03 [facility] Comment on above: Performed By: #### H FPFCBC #### [facility] [address] [place] [address] Dr. Felipe Johnson IG % 0.2 % Normal 0.0-0.5 [facility] Comment on above: Performed By: #### H FPFCBC #### [facility] [address] [place] [address] Dr. Felipe Johnson LYMPH # 1.9 103/ul Normal 1.2-3.8 [facility] Comment on above: Performed By: #### H FPFCBC #### [facility] [address] [place] [address] Dr. Felipe Johnson Lymphocytes/100 WBC (Bld) 40.3 % Normal 20.5-60.0 [facility] Comment on above: Performed By: #### H FPFCBC #### [facility] [address] [place] [address] Dr. Felipe Johnson MCH (RBC) [Entitic mass] 30.2 pg Normal 25.9-34.0 [facility] Comment on above: Performed By: #### H FPFCBC #### [facility] [address] [place] [address] Dr. Felipe Johnson MCHC (RBC) [Mass/Vol] 33.3 g/dL Normal 29.9-35.2 [facility] Comment on above: Performed By: #### H FPFCBC #### [facility] [address] [place] [address] Dr. Felipe Johnsno MCV (RBC) [Entitic vol] 90.9 fL Normal 80.0-94.0 [facility] Comment on above: Performed By: #### H FPFCBC #### [facility] [address] [place] [address] Dr. Felipe Johnson MONO # 0.6 103/ul Normal 0.3-0.8 [facility] Comment on above: Performed By: #### H FPFCBC #### [facility] [address] [place] [address] Dr. Felipe Johnson Monocytes/100 WBC (Bld) 13.9 % Critically high 1.7-12.0 [facility] Comment on above: Performed By: #### H FPFCBC #### [facility] [address] [place] [address] Dr. Felipe Johnson NEUT # 1.7 103/ul Normal 1.4-6.5 [facility] Comment on above: Performed By: #### H FPFCBC #### [facility] [address] [address] [address] Felipe Johnson Neutrophils/100 WBC (Bld) 37.1 % Critically low 43.0-75.0 [facility] Comment on above: Performed By: #### H FPFCBC #### [facility] [address] [address] [address] Felipe Johnson Platelet mean volume (Bld) [Entitic vol] 9.7 fL Normal 9.5-13.5 [facility] Comment on above: Performed By: #### H FPFCBC #### [facility] [address] [place] [address] Dr. Felipe Johnson PLT 207 103/ul Normal 150-450 [facility] Comment on above: Performed By: #### H FPFCBC #### [facility] [address] [place] [address] Dr. Felipe Johnson RBC 4.73 106/ul Normal 4.70-6.10 [facility] Comment on above: Performed By: #### H FPFCBC #### [facility] [address] [place] [address] Dr. Felipe Johnson WBC 4.6 103/ul Normal 4.0-11.0 [facility] Comment on above: Performed By: #### H FPFCBC #### [facility] [address] [place] [address] Dr. Felipe Johnson [employer] PROFILEon 022 Albumin [Mass/Vol] 4.4 g/dL Normal 3.4-5.0 [facility] Comment on above: Performed By: #### H FPF #### [facility] [address] [place] [address] Dr. Felipe Johnson Albumin/Globulin [Mass ratio] 1.3 {ratio} Normal [facility] Comment on above: Performed By: #### H FPF #### [facility] [address] [address] [address] Felipe Johnson ALP [Catalytic activity/Vol] 47 U/L Normal 46-116 [facility] Comment on above: Performed By: #### H FPF #### [facility] [address] [address] [address] Felipe Johnson ALT [Catalytic activity/Vol] 34 U/L Normal 16-63 [facility] Comment on above: Performed By: #### H FPF #### [facility] [address] [address] [address] Felipe Johnson AST [Catalytic activity/Vol] 24 U/L Normal 15-37 [facility] Comment on above: Performed By: #### H FPF #### [facility] [address] [place] [address] Dr. Felipe Johnson Bilirubin [Mass/Vol] 0.5 mg/dL Normal 0.2-1.0 [facility] Comment on above: Performed By: #### H FPF #### [facility] [address] [place] [address] Dr. Felipe Johnson Calcium [Mass/Vol] 9.2 mg/dL Normal 8.5-10.1 [facility] Comment on above: Performed By: #### H FPF #### [facility] [address] [place] [address] Dr. Felipe Johnson Chloride [Moles/Vol] 103 mmol/L Normal 98-107 [facility] Comment on above: Performed By: #### H FPF #### [facility] [address] [place] [address] Dr. Felipe Johnson CHOL-HDL RATIO NORM SEE BELOW Normal [facility] Comment on above: Result Comment: 3.3 - 4.4 LOW RISK 4.4 - 7.1 AVERAGE RISK 7.1 - 11.0 MODERATE RISK >11.0 HIGH RISK Performed By: #### H FPF #### [facility] [address] [place] [address] Dr. Felipe Johnson Cholesterol [Mass/Vol] 170 mg/dL Normal <=200 [facility] Comment on above: Performed By: #### H FPF #### [facility] [address] [place] [address] Dr. Felipe Johnson Cholesterol in HDL [Mass/Vol] 55 mg/dL Normal 40-60 [facility] Comment on above: Performed By: #### H FPF #### [facility] [address] [address] [address] Felipe Johnson Cholesterol in LDL [Mass/Vol] 103.2 mg/dL Normal [facility] Comment on above: Performed By: #### H FPF #### [facility] [address] [address] [address] Felipe Johnson Cholesterol.total/ Cholesterol in HDL [Mass ratio] 3.1 {ratio} Normal [facility] Comment on above: Performed By: #### H FPF #### [facility] [address] [place] [address] Dr. Felipe Johnson CO2 [Moles/Vol] 29.5 mmol/L Normal 21.0-32.0 [facility] Comment on above: Performed By: #### H FPF #### [facility] [address] [address] [address] Felipe Johnson Creatinine [Mass/Vol] 0.94 mg/dL Normal 0.70-1.30 [facility] Comment on above: Performed By: #### H FPF #### [facility] [address] [place] [address] Dr. Felipe Johnson Globulin (S) [Mass/Vol] 3.5 g/dL Normal [facility] Comment on above: Performed By: #### H FPF #### [facility] [address] [address] [address] Felipe Johnson Glucose [Mass/Vol] 89 mg/dL Normal 74-106 [facility] Comment on above: Performed By: #### H FPF #### [facility] [address] [address] [address] Felipe Johnson HDL NORMAL > or = 60 mg/dl - LO W CARDIOVASCULAR RISK <40 mg/dl - HIGH CARDIOVASCULAR RISK Normal [facility] Comment on above: Performed By: #### H FPF #### [facility] [address] [address] [address] Felipe Johnson LDL CALC NORMAL SEE BELOW Normal [facility] Comment on above: Result Comment: <100 mg/dl OPTIMAL 100 - 129 mg/dl NEAR OR ABOVE OPTIMAL 130 - 159 mg/dl BORDERLINE HIGH 160 - 189 mg/dl HIGH >190 mg/dl VERY HIGH Performed By: #### H FPF #### [facility] [address] [address] [address] Felipe Johnson Potassium [Moles/Vol] 4.0 mmol/L Normal 3.5-5.1 [facility] Comment on above: Performed By: #### H FPF #### [facility] [address] [address] [address] Felipe Johnson Protein [Mass/Vol] 7.9 g/dL Normal 6.4-8.2 [facility] Comment on above: Performed By: #### H FPF #### [facility] [address] [address] [address] Felipe Johnson Sodium [Moles/Vol] 139 mmol/L Normal 136-145 [facility] Comment on above: Performed By: #### H FPF #### [facility] [address] [address] [address] Felipe Johnson Triglyceride [Mass/Vol] 59 mg/dL Normal <=150 [facility] Comment on above: Performed By: #### H FPF #### [facility] [address] [address] [address] Felipe Johnson TSH 82.125 uIU/mL Critically high 0.358-3.740 [facility] Comment on above: Performed By: #### H FPF #### [facility] [address] [address] [address] Felipe Johnson Urea nitrogen [Mass/Vol] 15.0 mg/dL Normal 7.0-18.0 [facility] Comment on above: Performed By: #### H FPF #### [facility] [address] [address] [address] Felipe Johnson Urea nitrogen/Creatinin e [Mass ratio] 16.0 mg/mg Normal [facility] Comment on above: Performed By: #### H FPF #### [facility] [address] [place], [place] [address] Dr. Felipe Johnson VLDL CALC 11.8 mg/dL Normal [facility] Comment on above: Performed By: #### H FPF #### [facility] [address] [place], [place] [address] Dr. Felipe Johnson Encounters Encounter Date Encounter Type Care Provider Facility Start: 09-29-2023 End: 09-30-2023 ambulatory Lady L Andrea Facility:[facility] Start: 05-06-2023 End: 05-07-2023 ambulatory Lady L Andrea Facility[facility] Start: 04-19-2023 ambulatory Lady Andrea Facility:[facility] Start: 08-24-2022 End: 08-24-2022 Lab [facility] Zen MICHELLE [place] Start: 06-20-2022 End: 06-21-[address] FRAN PATHAK Facility:[facility] Start: 04-18-2022 End: 04-19-[address] FRAN PATHAK Facility:[facility] Start: 04-16-2022 End: 04-17-[address] FRAN PATHAK Facility:[facility] Procedures Date Procedure Procedure Detail Performing Clinician Start: 05-20-2022 Vasectomy Zen Crews Appendectomy Zen MICHELLE Payers Date Payer Category Payer Unknown [id number] 1990 Unknown [id number] Unknown [id number] 1990 Unknown [id number] 1961 Self-pay [id number] 1961 Unknown [id number] Unknown [id number] Social History Date Type Detail Facility Start: 04-14-2022 Tobacco smoking status Never s moked tobacco (finding) [facility] Jorge Alberto Sex Assigned At Male [facility] Evaluation + Plan note 08-24-2022 Laboratory Note Date & Type Note Facility 08-24-2022 Evaluation + Plan note Diagnostic Tests PendingSemen Analysis Post Vasectomy 08/24/22Sperm Morphology 08/24/22 Future Scheduled TestsSemen Analysis Post Vasectomy 06/09/22 [facility] course Narrative Note Date & Type Note Facility Hospital course Narrative No data available for this section [facility] Discharge instructions Note Date & Type Note Facility Hospital Discharge instructions No data available for this section [facility] Progress note Note Date & Type Note Facility Progress note No data available for this section [facility] Summary Purpose Family History No Family History Records FoundNo Family History Records Found Advance Directives No Advanced Directives Records FoundNo Advanced Directives Records Found Additional Source Comments (unrecognized sect ion and content) No Status Records FoundNo Status Records Found INFORMATION SOURCE (unrecogn ized section and content) DATE CREATED AUTHOR 06/25/[address] [facility] DATE CREATED AUTHOR AUTHOR'S ORGANIZ ATION 10/01/2023 [facility] Patient Care team informatio n (unrecognized section and content) Personnel Name: FRAN PATHAK MD Address: Address: [address] [place] [id number] FOR RECORDS PERTAINING TO PATIENTS WHO ARE [...] BE BASED ON THE PRIMARY CLINICAL RECORDS. [facility] [place]. provides no warranty or guarantee of the accuracy or completeness of information in this document.
--- NOTE | 2023-11-04 19:12 | US_ITS ---
The [address] [address] Patient Name: YUNI CASTRO MRN: [id number] date: 1990 Sex: M Assigned Patient Location: [place] Current Patient Location: [place] Accession/Order Number: [id number] Exam Date: 11/04/2023 19:17 Report Date: 11/06/2023 07:11 At the request of: ASIF ECHEVERRIA Procedure: US thyroid EXAMINATION: US thyroid HISTORY: HYPOTHYROIDISM COMPARISON: No relevant comparison available. FINDINGS: RIGHT LOBE: Slightly enlarged and markedly heterogeneous containing several small TR 2 nodules, 7 mm in maximum diameter respectively. Lobe size: 5.9 x 1.8 x 1.7 cm LEFT LOBE: Enlarged and markedly heterogeneous containing several small TR 2 nodules, 4 mm in maximum diameter. Lobe size: 6.2 x 2.6 x 1.67 m ISTHMUS: Thickened and markedly heterogeneous. Thickness: 5 mm US/US thyroid IMPRESSION: 1. Enlarged, markedly heterogeneous thyroid gland containing several small TR 2 nodules bilaterally. Follow-up as clinically indicated. TI-RADS 2: Benign nodules. Noticeably benign pattern (0% risk of malignancy) Electronically authenticated by: KANDI PIZANO Date: 11/06/2023 07:11
--- OUTSIDE RECORDS SUMMARY | 2023-11-04 19:13 | XMS_ITS | CCD ---
Author Name Unknown Address [address] [place] [address] Organization [facility] Care Team Providers Care Teenage Program Director Name Role Phone BAHMAN, DR FRAN Crews [...] tablet (1 source) Opioid Agonist Start: 05-11-2022 [place] 325 mg-5 mg oral tablet 1 tab(s), Oral, q4hr, 12 tab(s), Refill(s) 0, take one tab q4hr prn after procedure, [facility]/pharmacy #[id number], 185, cm, 04/14/22 15:12:00 EDT, Height/Length Dosing, 98, kg, 04/14/22 15:12:00 EDT, Weight Dosing Start Date: 05/11/22 Status: Ordered cephalexin 500 mg oral capsule (1 source) Cephalosporin Antibacterial Start: 05-11-2022 take 1 capsule by mouth twice daily Keflex 500 mg Cap 500 mg = 1 cap(s), Oral, BID, start one day prior to procedure, # 10 cap(s), Refills(s) 0, Pharmacy: [facility]/pharmacy #[id number], 185, cm, 04/14/22 15:12:00 EDT, Height/Length Dosing, 98, kg, 04/14/22 15:12:00 EDT, Weight Dosing Start Date: 05/11/22 Status: Ordered diazePAM 10 mg oral tablet (1 source) Benzodiazepine Start: 05-11-2022 Valium 10 mg Tab 10 mg = 1 tab(s), Oral, Once, take one hour prior to procedure, # 1 tab(s), Refills(s) 0, Pharmacy: [facility]/pharmacy #[id number], 185, cm, 04/14/22 15:12:00 EDT, [...] BMI 27.0-27.9,adult Duration: 7 Days Pickup at [facility]/pharmacy #[id number] New methylPREDNISolone (Medrol 4 mg Tab) 1 Packets By Mouth As Directed Otitis media BMI 27.0-27.9,adult Duration: 6 Days as directed on package labeling Pickup at [facility]/pharmacy #[id number] Unchanged levothyroxine (levothyroxine 112 mcg (0.112 mg) oral capsule) 1 Capsules By Mouth Every day Unchanged loratadine Every day Unchanged multivitamin (Multi Vitamins oral tablet) By Mouth Every day Pharmacy Information [facility]/pharmacy #[id number]: [address], [place] [phone] Allergies No Known Allergies Problems Ongoing - [...] for choosing us for your care. [facility] Family Medicine Office/Clini c Noteon 09-29-2023 [...] day(s), # 14 tab(s), Refills(s) 0, Pharmacy: [facility]/pharmacy #[id number], 185, cm, 09/29/23 8:32:00 EST, Height/Length Dosing, 95.7, kg, 09/29/23 8:32:00 EST, Weight Dosing methylPREDNISolone, = 1 packet(s), Oral, As Directed, as directed on package labeling, X 6 day(s), # 21 tab(s), Refills(s) 0, Pharmacy: [facility]/pharmacy #[id number], 185, cm, 09/29/23 8:32:00 EST, Height/Length Dosing, 95.7, kg, 09/29/23 8:32:00 EST, Weight Dosing Influenza Type A&B POC 15367 Rapid COVID POC 84216 2. BMI 27.0-27.9,adult (Z68.27: Body mass index [BMI] 27.0-27.9, adult) BMI education complete Ordered: amoxicillin-clavulanate, = 1 tab(s), Oral, q12hr, X 7 day(s), # 14 tab(s), Refills(s) 0, [id number], 185, cm, 09/29/23 8:32:00 EST, Height/Length Dosing, 95.7, kg, 09/29/23 8:32:00 EST, Weight Dosing methylPREDNISolone, = 1 packet(s), Oral, As Directed, as directed on package labeling, X 6 day(s), # 21 tab(s), Refills(s) 0, [id number], 185, cm, 09/29/23 8:32:00 EST, Height/Length [...] Negative (09/29/23 08:4 (more content not included)... [facility] Comment on above: Result Comment: Elec tronically Signed By: Lady Ruiz\.br\Date and Time Signed: 09/29/23 09:50 EST Physician Orderon 08-25-2023 Physician Order [id number] F [facility] Immunization Recordson 05-25 Immunization Records [id number]: 127 [facility] Ambulatory Visit Summaryon 0 05-06-2023 Ambulatory [...] Tablets By Mouth Every day Pickup at [facility]/pharmacy #[id number] Unchanged levothyroxine (Synthroid) 75 Microgram By Mouth Every day Unchanged loratadine Every day Unchanged multivitamin (Multi Vitamins oral tablet) By Mouth Every day Pharmacy Information [facility]/pharmacy #[id number]: [address], [place] [phone] Allergies No Known Allergies Problems Ongoing - [...] Follow these instructions at home: ? Take ssey-hxi-kblrxaj and prescription medicines only as told by [...] yourse (more content not included)... Normal [place] Family Medicine Office/Clini c Noteon 05-06-2023 Family [...] all questions answered. pt to return to [facility] in 6 weeks for a lab draw will adjust meds as needed. 2. BMI 27.0-27.9,adult (Z68.27: Body mass index [BMI] 27.0-27.9, adult) BMI education complete Orders: levothyroxine, 75 mcg = 1 tab(s), Oral, Daily, # 30 tab(s), Refills(s) 1, Pharmacy: [facility]/pharmacy #[id number], 185, cm, 05/06/23 14:44:00 EDT, [...] measles/mumps/rubella virus vaccine 09/24/1989 Recorded Normal [place] Comment on above: Result Comment: Elec tronically [...] Follow these instructions at home: ? Take hbng-vae-ymumrcb and prescription medicines only as told by [...] provider. Document Revised: 08/18/2022 Document Reviewed: 08/18/2022 [employer] Patient Education ? 2022 [employer]. Endocrinology Hypothyroidism Hypothyroidism is when the thyroid [...] energy (met[employer]olis (more content not included)... Normal [facility] Lab Reportson 04-19-2023 Lab Reports [id number]#[id number]: 127 [facility] Lab Reports [id number]: 127 [facility] Coding Summary.on 12-09-2022 Coding Summary. CD:[id number] Ww+P GhlYWQ+FV3JRGKtA32dxKTdk N6mZ3AIEWaDLgscIUUYLBoRA cVzdwOpYO3gpLJoIDXd IC8+LO0hROPkIekknMHwe0O4 xEE3P92amu9dMAbagDK2QNIl TsKvalqkk2yruTt3RIjwCilw OyBt TLOfeT67NTI4zR94Ge03hLVl gEOhq0kesHc7MmHxINWcKBF8 bUuwBRlhv5DrFYXmN43lyFNm c2U6 IDWxiUcngOZyHxKldVY8iJ5i ZGaljzmxw0zvuqjrGiq0zg55 lZIlr7R3vHP5B8IfmbM7LINn bGQg JxzblZWRbE9rwdkab8kxaplv LsRyNQRmUGv0XGq0WLTidHxm QrEnGU00TLG8QWUxcjWyW5Fe LWFs nMlfJoO3e6J3Ly0HJ9CSCzkk X5KGEHEJTIguqAY+MP26jt79 U3PdLvhnYyp9IFXyTOM8uMK5 aD0n LAYtHKjjq1Q3oVT9X4AlqjCa gf5sv5auAOMpRAboH14wqHTq b2P4SZGtrHG9HXFkeGozPlVg aG93 Oyc+QWFwrWnyf5JoMvngc7it y1hksRt6UnkrZQZdgbKznObw TUS5y9HvEh8fLVAkmPS8yTZ9 aD0i KvWyBhI9HRmrK430LuIckZNo XbjkA99vM8YfcFE+PHRyPjx0 IZXznHzwAY7vF9GjYXBkavmg bGVm gUqwLI5tMFUvajadFNAdgA0r XISuF1q6LlUzCpA4IXzxV3Jz IHHvdwluJn94oI5uNyRnCkN5 MGlu U9NsloJ2KZStpKDeWYegQOE1 R43ga5X0XLKmGMEhGAD8sUA6 tZ1ssTlyiptrnSGeeZvqwsZj dGlj WFmkOIioC025VNRzbDtaZdVy ZGluZyBEYXRlOiAgMDQvMTIv MjAyMzwvdGQ+AKOlZMM5hHsz PSAn oWJqNLtcDu4ogZjiuYkiNX3f ZMZizfnhAHYhjL1sLZMizBPu qAgcSR1cETWqzcmat570MrCd MHB0 XRYodFQsD0HwpD5oTzMlRDQx KIKsX2UknUJqUQdiL925CEpt ApF9NMRqupFeJ3GtUGVviGkv OiB0 r8N9Ec3Ca4ElbqzbH4ZbrNYs MpPfCrjfPEe8D9KjHusxjOZ+ MA71UQPxKI25PXe9TOV9hSrq PSdi KPMxP2OinX5eVuDiKWIbCEUb Oyc+PHRhYmxlIHdpZHRoPScx BNScPiXxrDleHP1xVw2aSJUs LWNv cMoucMEzSxDpj6ddYWPdQRpw RR8xbLanS0GodXS8HMPrq3u4 Hb43W17dM8EqpOM+PGNvbCB3 aWR0 pW8dUkSgUvB7NGwwW310KrTc fFOjQtuwp8qbc0oijYi2OnM1 SRAfyqUrxSfjJJY7x9CbAn56 Y29s IHdpZHRoPSIxNSUiIHZhbGln xe5rfR2kMp6+EPDvhUF6sFY9 kX3sYiDdQlN5BKemD658MaZz cCIv Trwgj4bns5mkpBe0UtDfNKHr axOtvEzcSHE1l5QfWe13K6Pg vCbpu2NmLcu1aw39mTAoc2Y2 bGU9 I6BwAWYehvcljHOikCdsUZ4e ELLppcifQPZgwF2uYMXcJ9l6 AaZuEqB7FZzxE0HijcK8FALj bGQg IJLueLPRqK9seuwpj5esmfsk QiQjHXBuCCi3WPx2VQJzvVpj FjQbZBW0PaN3EMH3pXPymR8m bGln wtqpbL9mEqc+JUB1oLDarEHA VT7pAjarvUW+XVRcOOR0uUvh SSmsEOCtyV5jNXViZ5e5SwPu LjA1 WYdcJ6XmloO0LRHbkZBzHJEt pXPNqM7kuawio4elgrchKnUj OMNlBIy6MCa0TSAjjKiqJrXn ZWZ0 ExB5LUX4wCZvuD2klOcarunn wY8ySjx+VilyjAhxCSE4SIy8 M1WbKgj8DENuzSskAI3asJHn ZGlu Zu3bhXaszGypJD7oNGJmjdjg e813PfUgh0hyJROxzCMfBUvd IGP6C96uq1U6PJSyCLBbJTA9 dGV4 mD3isDrmlmdtkVXrgUurfsUj iReyDCiiOHwiA153ESJphDuy OcIuGLv5S0LiCsj8JVCjiJqk ZT0n qAVzTAqyMo8duNgqwGkoYN2x GJUpcsbus997TmOal1jbXZSi gEJaOYopHCO9Q80sj8F7XHFr MDAw HCZ8wTZ2vV0pmNzghbujpONc kAkweqSquUaoAPclMIukX476 ZRMbkUtlQxPlnIk5J4HoAzb9 ZCBz gXafIW1xoLVtDFdwCq2ufSyp qHbsYT3aMEWldiaoj175EvXp e9fdANKgvLUmGHqoBIW8S00a b3I6 MTAfSLRtMRY3oAK0iF6qzWqx bjogbGVmdDsgdmVydGljYWwt LPcnU221CCDjwInlSwMbxYav bnQg YTgoOUv9N1RzRupxkEA+PC90 LHZyBM86qFPhsVXiy6xsdUo4 VdQrQULaUXB3oLrcUJdyj1Zo ZXIt C91khHIds6Q6YSIksKznvNJf SlJiiVK7uA6bOIyvddneo2uj susrYggvg6bdob02fZ34J16b IHdp LUXkBLXvWUUnYEYubLhzzl1j oJ2cEe4+YGIbtWG0kXL4lM4q UOFhXzL0ASduR036CbSpeLDp Pjxj b0oyd5ipsUy0TqX4TGZfwhEa jFjoGOC1o3QqLf41K88cMLyz ZOQmOCSkJEOoFNSwaQvsax3g dG9w Ii8+EBEmlYY0eEU6cP3vItDf IdM5NEqdN800UrEjlOZyIqsm Y11zG1ZvyUR+PIEzIyq4KMWc dHls IR8mfOAcPUvzJz9aPED8NyGt XvFsILzpH1IzWEOvlztaylsi bWA2AXWrXTZypH67Kr0fxGcq MTBw zAWQsU1jqoiyp9wgyredGyQa MEUrNUr9BZu9KVGpqJdtTmVl AFG1KcX1OIZ2xOKarP6mcVom bjog cJ5iD2SoZGSwvkfsFf50lB7a XiWrTeA8OJhyYiw+REVCTEFT KYzjLtQNJcHNLWUJUL28ZJ42 dGQg v8N4kSK8F9JkVDZlslluhuzd mMC6KHRnOJYvnP76pTRtOEdb St3ny5N9z201NULoAWFbpB59 Zm9u qDbcKNAllYCYxM6uitaks1rf ejiyGlTcMOTkREv2GBx8SHBt pJxaMlFuAZD8XzJ4QCE1oVIs bC1h uCxhrafcyY5bQnt+MTAvMjYv USk4DCszbRJ+JYEvKZN5bNjt BDwnMQUcjX6fUPKwL3t1HjMb LjA1 QPzbN8LsIXEokodxGp76vO0p LvXmGhN8YCclD5TnozY4HGYx cOKmRMkaWLB0S67zg3K8KSAa MDAw DWX8aQE7iA8cgQcbpupkmMTd iXyfhzPjdJveDPumHSyqJ681 LIBjmIeiJsV4WCvaJKTyCL00 ZD48 iDBbd1D5kCC3E7JiWNFrhlhs seulrBF1EYMpQCJsfO78mGNw HMxzEr4cd9R1q909BVRmZRJn aW47 Yq7izEzdUVUuzRLXbV2opkwk k1lrlvorJsXuEZHtYHu3RQf2 UTOjqDuuMcImKVB4GtW9VFM6 aWNh pY0jxIexyiociJ8oArq+TWFs ZTwvdGQ+LKRfAMM6aSadZRgo DPWegJ0cFYBrH7b7ObDtQiW9 MGlu Y4UxGIFiahblCc73jH6xKlVx EdC1ESsqS3QrdkX4IEXwuBHr WWbmWPO0T55zc5J2QUGpVMAd MDA7 xYM0cY9cfVjqzcbzoQIzwCmq jwRczVbcUMjaMQtlH778ZKNm bPzbGnmbCkPZqe6mUL3pDrvg dGQ+ EL76ha64L4YoGehpPio2HCYc VHS6aFP5oD2sXSHgZBsza5I1 hWM4A2RsdrLsme0qy6ifJSWe ZTog S71cgDCjn6X7TNLmnKC7ZHTq zPfjUvYibR00Jiu+PGNvbGdy t8AaTljor2nju9hmoKx6MpZc JSIg ipRmdJqoWCD9t0MeRq16P61v IHdpZHRoPSIzMCUiIHZhbGln qa6vbE2oXt4+UPZifYT2tOW7 aD0i KzEdRcP6BTesB565PhTkeDCy Sipox7kud1pheRs7PxBhGKPc qlVcrDizYXA2n3RzZy49E3Va bGdy i5XxAdp4hm92oCDjc9Y7hRM3 D4WjRRPgxpeicEAnaUpgWY8g JUYuwliqFOMgpF6gGABuB4m1 OiAw UoR4LVneT6YcuwD3XGTepRAs EBXqyOVOuP6uqyutc7qyrigk FgZnXGFvZVc8JUk0XLTmqXdv OiBs GUO1GdW7BHG2jARhhV7fqKxt mrzjbU2fDnf+KXe8o4tldGQb TA3jjTI3WP32IF13xQDrm3K3 bGU9 V5EzPSMmjyxylhugsIW4RWDh NOJyoG32Kg7ufXcfEl1tMCOx OSN9ORQrtTOsZ5DqfQ1kKjEd MDAw XKYjX9CbaFHcSZvmS557GTzk MwW6NZBpewVaE1BoOOVpgOlt GaT9t4Q3Va7UVZ85IT95AK86 dGQg h9F9bAB1S2YePZKjskqggfpt pLS6OQGuJNLliT27Lj5ztBnd Ar9lZLHpUJG8VNRdzQZpA3Qt bG9y KaHfSGQqEPGvL0YauTJjNSha Z581WBhwCyK7YYJgjbCpE8Ew YVOakDqpHsQ5m7L3Aw2QOv73 PC90 FZ23kFTle9O5oRB7F6KvJENo legedlvfiUQ5VSKxQNGuvD68 Ng8msTumTo4dXBNuVUX3LQXj bWVz N9DzaX9jWoApTEKjOAPnE5Hu oLAiGWirO570TQlpZxY2MMEx oyNdX5LzNYGuzIpuUyY7j0G3 Jz5Q YQhbsbi0C6ChPutdkRL+PC90 NKMlHU56dBNjrEMrv9phqGn6 GfYpNFKsNFE1iBfhXVwvj8Xc ZXIt K22xpSOk (more content not included)... Normal [facility] FREE T3on 06-20-2022 FREE T3 2.51 pg/mlL Normal 2.18-3.98 [facility] Comment on above: Performed By: #### T SHELLEY, FT3 #### [facility] [address] [place] [address] Dr. Felipe Johnson FREE T4on 06-20-2022 Free T4 [Mass/Vol] 0.86 ng/dL Normal 0.76-1.46 [facility] Comment on above: Performed By: #### F T4 #### [facility] [address] [place] [address] Dr. Felipe Johnson TSHon 06-20-2022 TSH 11.720 uIU/mL Critically high 0.358-3.740 [facility] Comment on above: Performed By: #### T SHELLEY, FT3 #### [facility] [address] [place] [address] Dr. Felipe Johnson FREE T3on 04-18-2022 FREE T3 2.30 pg/mlL Normal 2.18-3.98 [facility] Comment on above: Performed By: #### F T3 #### [facility] [address] [place] [address] Dr. Felipe Johnson FREE T4on 04-18-2022 Free T4 [Mass/Vol] 0.54 ng/dL Critically low 0.76-1.46 [facility] Comment on above: Performed By: #### F T4 #### [facility] [address] [place] [address] Dr. Felipe Johnson [facility] CBC AUTO DIFFon 04-16-2022 BASO # 0.1 103/ul Normal 0.0-0.1 [facility] Comment on above: Performed By: #### H FPFCBC #### [facility] [address] [place] [address] Dr. Felipe Johnson Basophils/100 WBC (Bld) 1.1 % Normal 0.2-2.0 [facility] Comment on above: Performed By: #### H FPFCBC #### [facility] [address] [place] [address] Dr. Felipe Johnson EO # 0.3 103/ul Normal 0.0-0.7 [facility] Comment on above: Performed By: #### H FPFCBC #### [facility] [address] [place] [address] Dr. Felipe Johnson Eosinophils/100 WBC (Bld) 7.4 % Critically high 0.9-7.0 [facility] Comment on above: Performed By: #### H FPFCBC #### [facility] [address] [place] [address] Dr. Felipe Johnson Erythrocyte distribution width (RBC) [Ratio] 12.3 % Normal 11.0-15.0 [facility] Comment on above: Performed By: #### H FPFCBC #### [facility] [address] [place] [address] Dr. Felipe Johnson Hematocrit (Bld) [Volume fraction] 43.0 % Normal 42.0-54.0 [facility] Comment on above: Performed By: #### H FPFCBC #### [facility] [address] [place] [address] Dr. Fleipe Johnson Hemoglobin (Bld) [Mass/Vol] 14.3 g/dL Normal 14.0-18.0 [facility] Comment on above: Performed By: #### H FPFCBC #### [facility] [address] [place] [address] Dr. Felipe Johnson IG # 0.01 10e3/ul Normal 0.00-0.03 [facility] Comment on above: Performed By: #### H FPFCBC #### [facility] [address] [place] [address] Dr. Felipe Johnson IG % 0.2 % Normal 0.0-0.5 [facility] Comment on above: Performed By: #### H FPFCBC #### [facility] [address] [place] [address] Dr. Felipe Johnson LYMPH # 1.9 103/ul Normal 1.2-3.8 [facility] Comment on above: Performed By: #### H FPFCBC #### [facility] [address] [place] [address] Dr. Felipe Johnson Lymphocytes/100 WBC (Bld) 40.3 % Normal 20.5-60.0 [facility] Comment on above: Performed By: #### H FPFCBC #### [facility] [address] [place] [address] Dr. Felipe Johnson MCH (RBC) [Entitic mass] 30.2 pg Normal 25.9-34.0 [facility] Comment on above: Performed By: #### H FPFCBC #### [facility] [address] [place] [address] Dr. Felipe Johnson MCHC (RBC) [Mass/Vol] 33.3 g/dL Normal 29.9-35.2 [facility] Comment on above: Performed By: #### H FPFCBC #### [facility] [address] [place] [address] Dr. Felipe Johnson MCV (RBC) [Entitic vol] 90.9 fL Normal 80.0-94.0 [facility] Comment on above: Performed By: #### H FPFCBC #### [facility] [address] [place] [address] Dr. Felipe Johnson MONO # 0.6 103/ul Normal 0.3-0.8 [facility] Comment on above: Performed By: #### H FPFCBC #### [facility] [address] [place] [address] Dr. Felipe Johnson Monocytes/100 WBC (Bld) 13.9 % Critically high 1.7-12.0 [facility] Comment on above: Performed By: #### H FPFCBC #### [facility] [address] [place] [address] Dr. Felipe Johnson NEUT # 1.7 103/ul Normal 1.4-6.5 [facility] Comment on above: Performed By: #### H FPFCBC #### [facility] [address] [address] [address] Felipe Johnson Neutrophils/100 WBC (Bld) 37.1 % Critically low 43.0-75.0 [facility] Comment on above: Performed By: #### H FPFCBC #### [facility] [address] [address] [address] Felipe Johnson Platelet mean volume (Bld) [Entitic vol] 9.7 fL Normal 9.5-13.5 [facility] Comment on above: Performed By: #### H FPFCBC #### [facility] [address] [place] [address] Dr. Felipe Johnson PLT 207 103/ul Normal 150-450 [facility] Comment on above: Performed By: #### H FPFCBC #### [facility] [address] [place] [address] Dr. Felipe Johnson RBC 4.73 106/ul Normal 4.70-6.10 [facility] Comment on above: Performed By: #### H FPFCBC #### [facility] [address] [place] [address] Dr. Felipe Johnson WBC 4.6 103/ul Normal 4.0-11.0 [facility] Comment on above: Performed By: #### H FPFCBC #### [facility] [address] [place] [address] Dr. Felipe Johnson [facility] PROFILEon 022 Albumin [Mass/Vol] 4.4 g/dL Normal 3.4-5.0 [facility] Comment on above: Performed By: #### H FPF #### [facility] [address] [place] [address] Dr. Felipe Johnson Albumin/Globulin [Mass ratio] 1.3 {ratio} Normal [facility] Comment on above: Performed By: #### H FPF #### [facility] [address] [address] [address] Felipe Johnson ALP [Catalytic activity/Vol] 47 U/L Normal 46-116 [facility] Comment on above: Performed By: #### H FPF #### [facility] [address] [address] [address] Felipe Johnson ALT [Catalytic activity/Vol] 34 U/L Normal 16-63 [facility] Comment on above: Performed By: #### H FPF #### [facility] [address] [address] [address] Felipe Johnson AST [Catalytic activity/Vol] 24 U/L Normal 15-37 [facility] Comment on above: Performed By: #### H FPF #### [facility] [address] [place] [address] Dr. Felipe Johnson Bilirubin [Mass/Vol] 0.5 mg/dL Normal 0.2-1.0 [facility] Comment on above: Performed By: #### H FPF #### [facility] [address] [place] [address] Dr. Felipe Johnson Calcium [Mass/Vol] 9.2 mg/dL Normal 8.5-10.1 [facility] Comment on above: Performed By: #### H FPF #### [facility] [address] [place] [address] Dr. Felipe Johnson Chloride [Moles/Vol] 103 mmol/L Normal 98-107 [facility] Comment on above: Performed By: #### H FPF #### [facility] [address] [place] [address] Dr. Felipe Johnson CHOL-HDL RATIO NORM SEE BELOW Normal [facility] Comment on above: Result Comment: 3.3 - 4.4 LOW RISK 4.4 - 7.1 AVERAGE RISK 7.1 - 11.0 MODERATE RISK >11.0 HIGH RISK Performed By: #### H FPF #### [facility] [address] [place] [address] Dr. Felipe Johnson Cholesterol [Mass/Vol] 170 mg/dL Normal <=200 [facility] Comment on above: Performed By: #### H FPF #### [facility] [address] [place] [address] Dr. Felipe Johnson Cholesterol in HDL [Mass/Vol] 55 mg/dL Normal 40-60 [facility] Comment on above: Performed By: #### H FPF #### [facility] [address] [address] [address] Felipe Johnson Cholesterol in LDL [Mass/Vol] 103.2 mg/dL Normal [facility] Comment on above: Performed By: #### H FPF #### [facility] [address] [address] [address] Felipe Johnson Cholesterol.total/ Cholesterol in HDL [Mass ratio] 3.1 {ratio} Normal [facility] Comment on above: Performed By: #### H FPF #### [facility] [address] [place] [address] Dr. Felipe Johnson CO2 [Moles/Vol] 29.5 mmol/L Normal 21.0-32.0 [facility] Comment on above: Performed By: #### H FPF #### [facility] [address] [address] [address] Felipe Johnson Creatinine [Mass/Vol] 0.94 mg/dL Normal 0.70-1.30 [facility] Comment on above: Performed By: #### H FPF #### [facility] [address] [place] [address] Dr. Felipe Johnson Globulin (S) [Mass/Vol] 3.5 g/dL Normal [facility] Comment on above: Performed By: #### H FPF #### [facility] [address] [address] [address] Felipe Johnson Glucose [Mass/Vol] 89 mg/dL Normal 74-106 [facility] Comment on above: Performed By: #### H FPF #### [facility] [address] [address] [address] Felipe Johnson HDL NORMAL > or = 60 mg/dl - LO W CARDIOVASCULAR RISK <40 mg/dl - HIGH CARDIOVASCULAR RISK Normal [facility] Comment on above: Performed By: #### H FPF #### [facility] [address] [address] [address] Felipe Johnson LDL CALC NORMAL SEE BELOW Normal [facility] Comment on above: Result Comment: <100 mg/dl OPTIMAL 100 - 129 mg/dl NEAR OR ABOVE OPTIMAL 130 - 159 mg/dl BORDERLINE HIGH 160 - 189 mg/dl HIGH >190 mg/dl VERY HIGH Performed By: #### H FPF #### [facility] [address] [address] [address] Felipe Johnson Potassium [Moles/Vol] 4.0 mmol/L Normal 3.5-5.1 [facility] Comment on above: Performed By: #### H FPF #### [facility] [address] [address] [address] Felipe Johnson Protein [Mass/Vol] 7.9 g/dL Normal 6.4-8.2 [facility] Comment on above: Performed By: #### H FPF #### [facility] [address] [address] [address] Felipe Johnson Sodium [Moles/Vol] 139 mmol/L Normal 136-145 [facility] Comment on above: Performed By: #### H FPF #### [facility] [address] [address] [address] Felipe Johnson Triglyceride [Mass/Vol] 59 mg/dL Normal <=150 [facility] Comment on above: Performed By: #### H FPF #### [facility] [address] [address] [address] Felipe Johnson TSH 82.125 uIU/mL Critically high 0.358-3.740 [facility] Comment on above: Performed By: #### H FPF #### [facility] [address] [address] [address] Felipe Johnson Urea nitrogen [Mass/Vol] 15.0 mg/dL Normal 7.0-18.0 [facility] Comment on above: Performed By: #### H FPF #### [facility] [address] [address] [address] Felipe Johnson Urea nitrogen/Creatinin e [Mass ratio] 16.0 mg/mg Normal [facility] Comment on above: Performed By: #### H FPF #### [facility] [address] [place], [place] [address] Dr. Felipe Johnson VLDL CALC 11.8 mg/dL Normal [facility] Comment on above: Performed By: #### H FPF #### [facility] [address] [place], [place] [address] Dr. Felipe Johnson Encounters Encounter Date Encounter Type Care Provider Facility Start: 09-29-2023 End: 09-30-2023 ambulatory Lady L Andrea Facility:[facility] [place] [facility] Start: 05-06-2023 End: 05-07-2023 ambulatory Lady L Andrea Facility:[facility] [place] [facility] Start: 04-19-2023 ambulatory Lady Andrea Facility:[facility] Start: 08-24-2022 End: 08-24-2022 Lab Drop off Zen MICHELLE [facility] Start: 06-20-2022 End: 06-21-[address] FRAN PATHAK Facility:[facility] Start: 04-18-2022 End: 04-19-[address] FRAN PATHAK Facility:[facility] Start: 04-16-2022 End: 04-17-[address] FRAN PATHAK Facility:[facility] Procedures Date Procedure Procedure Detail Performing Clinician Start: 05-20-2022 Vasectomy Zen Crews Appendectomy Zen MICHELLE Payers Date Payer Category Payer Unknown [id number] 1988 Unknown [id number] [id number] 1988 Unknown [id number] 2.16.8 [id number] 1988 Unknown [id number] 2.16.8 [id number] 1959 Self-pay [id number] 1959 Unknown [id number] Unknown [id number] [id number] Social History Date Type Detail Facility Start: 04-14-2022 Tobacco smoking status Never s moked tobacco (finding) [facility] Jorge Alberto Sex Assigned At Male [facility] Evaluation + Plan note 08-24-2022 Laboratory Note Date & Type Note Facility 08-24-2022 Evaluation + Plan note Diagnostic Tests PendingSemen Analysis Post Vasectomy 08/24/22Sperm Morphology 08/24/22 Future Scheduled TestsSemen Analysis Post Vasectomy 06/09/22 [facility] Hospital course Narrative Note Date & Type Note Facility Hospital course Narrative No data available for this section [facility] Hospital Discharge instructions Note Date & Type Note Facility Hospital Discharge instructions No data available for this section [facility] Progress note Note Date & Type Note Facility Progress note No data available for this section [facility] Summary Purpose Family History No Family History Records FoundNo Family History Records Found Advance Directives No Advanced Directives Records FoundNo Advanced Directives Records Found Additional Source Comments (unrecognized sect ion and content) No Status Records FoundNo Status Records Found INFORMATION SOURCE (unrecogn ized section and content) DATE CREATED AUTHOR 06/25/2022 [facility] DATE CREATED AUTHOR AUTHOR'S ORGANIZ ATION 10/01/2023 [facility] Patient Care team informatio n (unrecognized section and content) Personnel Name: FRAN PATHAK MD Address: Address: [address] [place] [id number] FOR RECORDS PERTAINING TO PATIENTS WHO ARE [...] BE BASED ON THE PRIMARY CLINICAL RECORDS. [facility] [employer] [facility]. provides no warranty or guarantee of the accuracy or completeness of information in this document.
== END 2023-11-04 19:11 | disposition home or self-care (01) ==
PROVIDERS: PCP Nurse Practitioner; Visit Provider Nurse Practitioner
DX: E03.9 Hypothyroidism, unspecified (principal)
CPT/HCPCS: 76536

== ENCOUNTER 2025-07-07 09:50 | Emergency (ER) | payer OTHER, SELFPAY ==
[2025-07-07 09:54] VITALS: BP 133/87; PULSE 75; TEMP 36.4; O2SAT 99; BMI 26.4
--- NOTE | 2025-07-07 10:00 | XR_ITS ---
[facility] [place] [id number] Patient Name: YUNI CASTRO MRN: [id number] date: 1990 Sex: M Assigned Patient Location: ED.MAIN Current Patient Location: Accession/Order Number: [id number] Exam Date: 07/07/2025 10:40 Report Date: 07/07/2025 11:19 At the request of: FANNIE CHAMBERLAIN DO Procedure: XR finger LT min 2V XR finger LT min 2V 07/07/2025 10:53 AM SIGNS AND SYMPTOMS: Laceration of the distal aspect of the left fifth digit PROTOCOL: Frontal, lateral, and oblique radiographs of the left fifth digit COMPARISON: None FINDINGS: There is soft tissue swelling along the tip of the fifth digit. There is no abnormality. Foreign body. No fracture or dislocation. The joint spaces are preserved. XR/XR finger LT min 2V IMPRESSION: No acute bony injury. No abnormal radiopaque foreign body. Impression dictated by: Terry Garza M.D. 07/07/2025 11:19 AM Dictation Location: [place] [id number] Electronically authenticated by: [id number] Y Date: 07/07/2025 11:19
--- OUTSIDE RECORDS SUMMARY | 2025-07-07 10:04 | XMS_ITS | CCD ---
Author Organization [facility] Care Team Providers Care Ramp Service Man Name Role Phone BAHMAN, DR FRAN Crews Attending Unavailable RUGGIERO, DR FRAN Crews Consulting Unavailable RUGGIERO, DR FRAN Crews Admitting Unavailable RUGGIERO, DR FRAN Crews Consulting Unavailable RUGGIERO, DR FRAN Crews Admitting Unavailable RUGGIERO, DR FRAN Crews Attending Unavailable RUGGIERO, DR FRAN Crews Consulting Unavailable RUGGIERO, DR FRAN Cresw Admitting Unavailable RUGGIERO, DR FRAN Crews Attending Unavailable RUGGIEROFRAN Primary Care Physician Andrea, Lady Loving Primary Care Physician [phone] Andrea, MANAGEMENT AND BUDGET ANALYST Lady L Admitting Unavailable Andrea, MANAGEMENT AND BUDGET ANALYST Lady L Attending Unavailable Andrea, MANAGEMENT AND BUDGET ANALYST Lady L Attending Unavailable Andrea, MANAGEMENT AND BUDGET ANALYST Lady L Attending Unavailable Andrea, MANAGEMENT AND BUDGET ANALYST Lady L Attending Unavailable Andrea, MANAGEMENT AND BUDGET ANALYST Lady L Admitting Unavailable Andrea, MANAGEMENT AND BUDGET ANALYST Lady L Attending Unavailable Andrea, MANAGEMENT AND BUDGET ANALYST Lady L Attending Unavailable Andrea, MANAGEMENT AND BUDGET ANALYST Lady L Attending Unavailable OLGA LIDIATOM A Attending Unavailable Andrea, MANAGEMENT AND BUDGET ANALYST Lady L Attending Unavailable Andrea, MANAGEMENT AND BUDGET ANALYST Lady L Admitting Unavailable Andrea, MANAGEMENT AND BUDGET ANALYST Lady L Admitting Unavailable Andrea, MANAGEMENT AND BUDGET ANALYST Lady L Attending Unavailable Andrea, Lady L Attending Unavailable Andrea, Lady L Admitting Unavailable Medications Current Medications MedicationDrug Class(es)DatesSig (Normalized)Sig (Original)acetaminophen 325 mg / HYDROcodone bitartrate 5 mg oral tablet (1 source)Opioid AgonistStart: 24-69-6285Qekov 325 mg-5 mg oral tablet 1 tab(s), Oral, q4hr, 12 tab(s), Refill(s) 0, take one tab q4hr prn after procedure, [facility]/pharmacy #[id number], 185, cm, 04/14/22 15:12:00 EDT, Height/Length Dosing, 98, kg, 04/14/22 15:12:00 EDT, Weight Dosing Start Date: 05/11/22 Status: Ordered cephalexin 500 mg oral capsule (1 source)Cephalosporin AntibacterialStart: 75-58-7420bajc 1 capsule by mouth twice dailyKeflex 500 mg Cap 500 mg = 1 cap(s), Oral, BID, start one day prior to procedure, # 10 cap(s), Refills(s) 0, Pharmacy: [facility]/pharmacy #[id number], 185, cm, 04/14/22 15:12:00 EDT, Height/Length Dosing, 98, kg, 04/14/22 15:12:00 EDT, Weight Dosing Start Date: 05/11/22 Status: OrdereddiazePAM 10 mg oral tablet (1 source)BenzodiazepineStart: 35-75-6292Zzskmt 10 mg Tab 10 mg = 1 tab(s), Oral, Once, take one hour prior to procedure, # 1 tab(s), Refills(s) 0, Pharmacy: [facility]/pharmacy #[id number], 185, cm, 04/14/22 15:12:00 EDT, Height/Length Dosing, 98, kg, 04/14/22 15:12:00 EDT, Weight Dosing Start Date: 05/11/22 Status: Orderedlevothyroxine sodium 0.15 mg oral tablet (5 sources)l-ThyroxineStart: 12-08-2024 End: 59-73-7939bqda 1 tablet by mouth once dailylevothyroxine 150 mcg (0.15 mg) Tab 150 mcg = 1 tab(s), Oral, Daily, X 30 day(s), # 30 tab(s), Refills(s) 2, Pharmacy: [facility]/pharmacy #[id number], 185, cm, 11/01/24 14:48:00 EST, Height/Length Dosing, 97.7, kg, 11/01/24 14:48:00 EST, Weight Dosing Start Date: 12/08/24 Stop Date: 03/08/25 Status: Ordered Quantity: 30.0 Unit: tab(s) Repeat number: 3Start: 91-24-7664vtqw 1 tablet by mouth once dailylevothyroxine 150 mcg (0.15 mg) Tab 150 mcg = 1 tab(s), Oral, Daily, # 60 tab(s), Refills(s) 0, [id number], cm, 11/01/24 14:48:00 EST, Height/Length Dosing, 97.7, kg, 11/01/24 14:48:00 EST, Weight Dosing Start Date: 11/01/24 Status: Ordered Start: 50-69-2847deqp 1 tablet by mouth once dailylevothyroxine 150 mcg (0.15 mg) Tab 150 mcg = 1 tab(s), Oral, Daily, # 60 tab(s), Refills(s) 1, [id number], 185, cm, 09/29/23 8:32:00 EST, Height/Length Dosing, 95.7, kg, 09/29/23 8:32:00 EST, Weight Dosing Start Date: 02/15/24 Status: Ordered Start: 50-32-6620qnui 1 tablet by mouth once dailylevothyroxine 137 mcg (0.137 mg) Tab 137 mcg = 1 tab(s), Oral, Daily, # 90 tab(s), Refills(s) 1, [id number], 185, cm, 09/29/23 8:32:00 EST, Height/Length Dosing, 95.7, kg, 09/29/23 8:32:00 EST, Weight Dosing Start Date: 11/29/23 Status: OrderedStart: 03-96-3131hbig 1 dose by mouth once dailyLoratadine (3 sources)Start: 03-15-3663ejyokydphu Daily Start Date: 04/14/22 Status: Ordered Multi Vitamins oral tablet (5 sources)Start: 93-36-6393cdga 1 tablet by mouth once dailyMulti Vitamins oral tablet Oral, Daily Start Date: 04/14/22 Status: Ordered Repeat number: 1Start: 39-92-5792Mdsdi Vitamins oral tablet Oral, Daily Start Date: 04/14/22 Status: Ordered Problems Problem ClassificationProblemDateDocumented DateEpisodic/ChronicContraceptive and procreative management (5 sources)Contraception jnlcvy07-32-8600WolbafhgYcwvj screening for suspected conditions (not mental disorders or infectious disease) (1 source)Abnormal results of thyroid function studies; Translations: [ABNORMAL RESULTS THR FUNCTION STDY]Onset: 36-77-5556AvfwuwblEefymc media and related conditions (4 sources)Otitis jgvil78-99-0911FcsozxbvXjzlztdh codes; unclassified (5 sources)Family history of prostate meholf27-12-8212LjlzcwjnMstwgrr disorders (8 sources)Hypothyroidism, unspecified; Translations: [Hypothyroidism]Onset: 80-90-4744Ddvxhkf Results Test NameValueInterpretationReference RangeFacilityReminderson 12-15-2024 RemindersReminders From: Lady Ruiz To: B - Clinical; Sent: 12/15/2024 08:09:54 EDT Show up: 12/15/2024 08:10:00 EDT Subject: Ambulatory Reminder Due Date/Time: 12/16/2024 08:09:00 EDT TSH has improved but is still elevated. I increased levothyroxine dose to 175 mcg Results: Date Result Name Ind Value Ref Range 12/13/2024 15:19 TSH (H) 18.63 mcIU/mL (0.34 - 5.60) pt notifiedNormalCommunity Memorial HospitalTSHon 53-94-7801FFW Qn18.63 m[IU]/L High0.34-5.60Community [facility] HospitalComment on above:Order Comment: scheduled to repeat TSH in 6 weeks to make sure dose does not need adjusted Performed By: #### [id number] #### [facility] [address], [place] [address]Wlryyivggfl 38-09-1242FpbigglveVdqlwkiqo From: Lady Ruiz To: [facility] - Clinical; Sent: 11/06/2024 10:33:32 EDT Show up: 11/06/2024 10:33:00 EDT Subject: Ambulatory Reminder Due Date/Time: 11/07/2024 10:32:00 EDT TSH was 95. was he able to get synthroid restarted? will need to recheck TSH in 6 weeks Results: Date Result Name Ind Value Ref Range 11/01/2024 15:12 TSH ((H)) 95.20 mcIU/mL (0.34 - 5.60) 11/01/2024 15:12 T4 Free ((L)) 0.40 ng/dL (0.58 - 1.64) 11/01/2024 15:12 T3 Free 2.4 pg/mL (2.0-4.4 - ) From: Layne Xiao M.A. ([facility] - Clinical) To: Lady Ruiz; [facility] - Clinical; Sent: 11/06/2024 13:12:50 EDT Show up: 11/06/2024 13:11:00 EDT Subject: RE: Ambulatory Reminder left VM to relay below message Pt informed, states he started back on the synthroid last week. He has his nurse visit scheduled for December 13. From: Nathaly Warner LPN ([facility] - Clinical) To: Lady Ruiz; Sent: 11/06/2024 14:58:47 EDT Show up: 11/06/2024 14:58:00 EDT Subject: tsh labsNormalCommunity Memorial HospitalT3 Freeon 87-46-4726Gkna T3 [Mass/Vol]2.4 pg/mLInvalid Interpretation Code2.0-4.4[facility] Comment on above:Result Comment: Performed at: [facility] [address] [place] [address] [id number] PhD Meghan Sueformed By: #### [id number] #### [facility] [address], [place] [address]Atpb T4on 84-83-8860Dfdg T4 [Mass/Vol]0.40 ng/dLLow0.58-1.64 [facility] HospitalComment on above:Performed By: #### [id number] #### [facility] [address], [place] [address]ENUvq 27-81-8408GKX Qn95.20 m[IU]/LHigh0.34-5.60[facility] HospitalComment on above:Performed By: #### [id number] #### [facility] [address], [place] [address]Ccsyhxptrn Visit Summaryon 96-34-6319Hxtjaddrfs Visit Summary Ambulatory Visit Summary MAYANKLUANNE YUNI M :1990 Visit Date:11/01/2024 Ambulatory Visit Instructions Your Diagnosis Hypothyroid BMI 28.0-28.9,adult Non-smoker Your Care Team Attending Physician - Lady Ruiz Primary Care Physician - Lady Ruiz This Is Your Medications List levothyroxine (levothyroxine 150 mcg (0.15 mg) Tab) multivitamin (Multi Vitamins oral tablet) Procedures Performed Vasectomy (05/20/2022), Appendectomy, Surgery. Discharge Vitals Heart Rate (Peripheral) 70 Respiratory Rate 18 Blood Pressure 110/74 Height 185.0 cm Height 73 in Weight 97.7 kg Weight 215.391 lb BMI 28.55 What to do next Scheduled Follow-Up Appointments Wednesday 2:40 PM EDT Where: [facility] [address] [address]- You Need to Complete the Following Thyroid Stimulating Hormone, Blood, Routine collect, 11/01/24, Order for future visit, Lab Collect,Hypothyroid BMI 28.0-28.9,adult Non-smoker, Print Label By Order Location Medications What How Much When Instructions New levothyroxine (levothyroxine 150 mcg (0.15 mg) Tab) 1 Tablets By Mouth Every day Pickup at [facility]/pharmacy #[id number] Unchanged multivitamin (Multi Vitamins oral tablet) By Mouth Every day Pharmacy Information [facility]/pharmacy #[id number]: [address], [place] [phone] Allergies No Known Allergies Problems Ongoing - [...] you for choosing us for your care. [facility] Medicine Office/Clinic Noteon 95-25-1938Btxyes Medicine Office/Clinic NoteCharlton Memorial Hospital Medicine Office/Clinic Note HPI Staff Yuni is a 34 year old male presenting for physical Health Maintenance: Last Labs: TSH: 2.98 mcIU/mL (05/16/24 07:07:00) Has taken levothyroxine has been out since 07/30/24 History of Present Illness pt presents today for refills on syntthoid Review of Systems PHQ Score Initial Depression Screen Score: 0 SCORE Physical Exam Vitals & Measurements HR: 70(Peripheral) RR: 18 BP: 110/74 SpO2: 99% HT: 73 in HT: 185.0 cm WT: 97.7 kg WT: 215.391 lb BMI: 28.55 General: alert, no acute distress ENMT: oral mucosa moist, no pharyngeal erythema or exudate Cardiovascular: regular rate and rhythm, normal peripheral perfusion Respiratory: Lungs CTA, respirations non labored Extremities: no deformity, no trauma Neurological: oriented x 4, LOC appropriate for age, CN II-XII intact, motor strength equal & normal bilaterally, speech normal Assessment/Plan 1. Hypothyroid (E03.9: Hypothyroidism, unspecified) pt hasn't taken his meds since July. He questions why he has to take medication if he feels normal without it. discussed the importance of controlling thyroid because if left untreated can cause many issues with multiple organs over time. pt was trying to lose wieight after [place] and couldn't figure out why he wasn't losing. then realized he hadn't taken his meds. will check labs today. will send refill. will then recheck in 6 weeks to make sure dose is appropriate. RTC 3 months Ordered: Free T4 T3 Free Thyroid Stimulating Hormone 2. BMI 28.0-28.9,adult (Z68.28: Body mass index [BMI] 28.0-28.9, adult) BMI education given Ordered: Free T4 T3 Free Thyroid Stimulating Hormone 3. Non-smoker (Z78.9: Other specified health status) continue not smoking Ordered: Free T4 T3 Free Thyroid Stimulating Hormone Orders: levothyroxine, 150 mcg = 1 tab(s), Oral, Daily, # 60 tab(s), Refills(s) 0, [id number], 185, cm, 11/01/24 14:48:00 EST, Height/Length Dosing, 97.7, kg, 11/01/24 14:48:00 EST, Weight Dosing levothyroxine, 150 mcg = 1 tab(s), Oral, Daily, # 60 tab(s), Refills(s) 1, [id number], 185, cm, 09/29/23 8:32:00 EST, Height/Length Dosing, 95.7, kg, 09/29/23 8:32:00 EST, Weight Dosing Follow-up No qualifying data available Problem List/Past Medical History Ongoing Encounter for vasectomy Family history of prostate cancer Hypothyroid Otitis media Historical No qualifying data Procedure/Surgical History Vasectomy (05/20/2022), Appendectomy, Surgery. Medications levothyroxine 150 mcg (0.15 mg) Tab, 150 mcg= 1 tab(s), Oral, Daily Multi Vitamins oral tablet, Oral, Daily Allergies No Known Allergies Social History Alcohol Current. Beer. 1-2 times per week., 07/25/2024 Substance Abuse - Denies Substance Abuse, 09/29/2023 Never., 07/25/2024 Tobacco Never (less than 100 in lifetime) Tobacco Use:., 07/25/2024 Family History Diabetes mellitus: Father. Epilepsy: Father. [...] formulation 04/30/1993 Recorded measles/mumps/rubella virus vaccine 09/24/1989 RecordedPamela Medstar Harbor HospitalComment on above:Result Comment: Electronically Signed By: Lady Ruiz\.br\Date and Time Signed: 11/01/24 15:14 ESTAmbulatory Visit Summary on 66-95-3280Fvokryondd Visit SummaryAmbulatory Visit Summary YUNI CASTRO :1990 Visit Date:07/25/2024 Ambulatory Visit Instructions Your Diagnosis Strep pharyngitis Pharyngitis Ear pain Non-smoker BMI 27.0-27.9,adult Overweight (BMI 25.0-29.9) Your Care Team Attending Physician - TOM DUGGAN CNP Primary Care Physician - Lady Ruiz This Is Your Medications List azithromycin (azithromycin 250 mg Tab) levothyroxine (levothyroxine 150 mcg (0.15 mg) Tab) loratadine multivitamin (Multi Vitamins oral tablet) Procedures Performed Vasectomy (05/20/2022), Appendectomy, Surgery. Discharge Vitals Temperature (Oral) 36.6 ???C Heart Rate (Peripheral) 82 Respiratory Rate 18 Blood Pressure 120/78 Height 185.0 cm Height 73 in Weight 94.6 kg Weight 208.557 lb BMI 27.64 Medications What How Much When Why Instructions New azithromycin (azithromycin 250 mg Tab) 1 Packets By Mouth As Directed Strep pharyngitis Pharyngitis Ear pain Duration: 5 Days as directed on package labeling Pickup at [facility]/pharmacy #[id number] Unchanged levothyroxine (levothyroxine 150 mcg (0.15 mg) Tab) 1 Tablets By Mouth Every day Unchanged loratadine Every day Unchanged multivitamin (Multi Vitamins oral tablet) By Mouth Every day Pharmacy Information [facility]/pharmacy #[id number]: [address], [place] [phone] Allergies No Known Allergies Problems Ongoing - [...] you for choosing us for your care. Education Materials Strep Throat, Adult Strep throat is an infection in the throat that is caused by bacteria. It is common during the coldmonths of the year. It mostly affects children who are 5???15 years old. However, people of all ages can get it at any time of the year. This infection spreads from person to person (is contagious) through coughing, sneezing, or having close contact. Your health care provider may use other names to describe the infection. When strep throat affects the tonsils, it is called tonsillitis. When it affects the back of the throat, it is called pharyngitis. What are the causes? This condition is caused by the Streptococcus pyogenes bacteria. What increases the risk? You are more likely to develop this condition if: ??? You care for school-age children, or are around school-age children. Children are more likely to get strep throat and may spread it to others. ??? You spend time in crowded places where the infection can spread easily. ??? You have close contact with someone who has strep throat. What are the signs or symptoms? Symptoms of this condition include: ??? Fever or chills. ??? Redness, swelling, or pain in the tonsils or throat. ??? Pain or difficulty when swallowing. ??? White or yellow spots on the tonsils or throat. ??? Tender glands in the neck and under the jaw. ??? Bad smelling breath. ??? Red rash all over the body. This is rare. How is this diagnosed? This condition is diagnosed by tests that check for the presence and the amount of bacteria that cause strep throat. They are: ??? Rapid strep test. Your throat is swabbed and checked for the presence of bacteria. Results are usually ready in minutes. ??? Throat culture test. Your throat is swabbed. The sample is placed in a cup that allows infections to grow. Results are usually ready in 1 or 2 days. How is this treated? This condition may be treated with: ??? Medicines that kill germs (antibiotics). ??? Medicines that relieve pain or fever. These include: ? Ibuprofen or acetaminophen. ? Aspirin, only for people who are over the age of 18. ? Throat lozenges. ? Throat sprays. Follow these instructions at home: Medicines ??? Take baqi-gbz-rsndjmw and prescription medicines only as told by your health care provider. ??? Take your antibiotic medicine as told by your health care provider. Do not stop taking the antibiotic even if you start to feel better. Eating and drinking ??? If you have trouble swallowing, try eating soft foods until your sore throat feels better. ??? Drink enough fluid to keep your urine pale yellow. ??? To help relieve pain, you may have: ? Warm fluids, such as soup and tea. ? Cold fluids, such as frozen desserts or popsicles. General instructions ??? Gargle with a salt-water mixture 3???4 times a day or as needed. To make a salt- water mixture, completely dissolve ?1 tsp (3???6 g) of salt in 1 cup (237 mL) of warm water. ??? Get plenty of rest. ??? 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 sweating but no fever, headache yesterday Right side of his throat hurts when he swallows I have reviewed and verified the staff HPI to be accurate for this encounter. Covid, Flu, and Strep tested IO today- Strep was Positive rest was NEG History of Present Illness 34 year old patient of Christophe Mendez CNP presents today for an acute visit for bilateral ear pain and sore throat. He reports his symptoms started yesterday. He has taken OTC Dayquil & Nyquil with no improvement. He reports he had a slight fever yesterday afternoon but none since then. Review of Systems PHQ Score Initial Depression Screen Score: 0 SCORE Constitutional: no fever, no chills, no sweats, no weakness Respiratory: no shortness of breath, no cough, no orthopnea, no wheezing Cardiovascular: no chest pain, no palpitations, no edema Additional ROS info: Except as noted in the above Review of Systems and in the History of Present Illness all other systems have been reviewed and are negative or noncontributory. Physical Exam Vitals & Measurements T: 36.6 ???C(Oral) HR: 82(Peripheral) RR: 18 BP: 120/78 SpO2: 96% HT: 73 in HT: 185.0 cm WT: 94.6 kg WT: 208.557 lb BMI: 27.64 General: alert, no acute distress ENMT: TM's clear, oral mucosa moist, yes pharyngeal erythema or exudate; multiple white patches on the tonsils Cardiovascular: regular rate and rhythm, normal peripheral perfusion Respiratory: Lungs CTA, respirations non labored Extremities: no deformity, no trauma Neurological: oriented x 4, LOC appropriate for [facility] normal Assessment/Plan 1. Strep pharyngitis (J02.0: Streptococcal pharyngitis) Encouraged to drink cool or warm liquids Encouraged to gargle with warm saline water Rapid strep + today in the office f/u in 3-5 days if no improvement Ordered: azithromycin, = 1 packet(s), Oral, As Directed, as directed on package labeling, X 5 day(s), # 6 tab(s), Refills(s) 0, Pharmacy: [facility]/pharmacy #[id number], 185, cm, 07/25/24 11:28:00 EST, Height/Length Dosing, 94.6, kg, 07/25/24 11:28:00 EST, Weight Dosing Influenza Type A&B POC 36845 Rapid COVID POC 33510 Rapid Strep POC 03242 2. Pharyngitis (J02.9: Acute pharyngitis, unspecified) Encouraged to drink cool or warm liquids Encouraged to gargle with warm saline water Rapid strep + today in the office f/u in 3-5 days if no improvement Ordered: azithromycin, = 1 packet(s), Oral, As Directed, as directed on package labeling, X 5 day(s), # 6 tab(s), Refills(s) 0, Pharmacy: [facility]/pharmacy #[id number], 185, cm, 07/25/24 11:28:00 EST, Height/Length Dosing, 94.6, kg, 07/25/24 11:28:00 EST, Weight Dosing Influenza Type A&B POC 48958 Rapid COVID POC 70228 Rapid Strep POC 13539 3. Ear pain (H92.09: Otalgia, unspecified ear) Ordered: azithromycin, = 1 packet(s), Oral, As Directed, as directed on package labeling, X 5 day(s), # 6 tab(s), Refills(s) 0, [id number] 185, cm, 07/25/24 11:28:00 EST, Height/Length Dosing, 94.6, kg, 07/25/24 11:28:00 EST, Weight Dosing Influenza Type A&B POC 11578 Rapid COVID POC 61843 Rapid Strep POC 55721 4. Non-smoker (Z78.9: Other specified health status) Encouraged to continue is a non-smoker 5. BMI 27.0-27.9,adult (Z68.27: Body mass index [BMI] 27.0-27.9, adult) The standard range for ages 18 and older is >=18.5 and < 25 kg/m2. Your BMI today was above this range, this falls in the overweight to obese category and there are medical benefits to weight loss. We can offer counselling, referral, and/or medical support in addressing this problem. Your BMIand weight management will be followed at subsequent visits. 6. Overweight (BMI 25.0-29.9) (E66.3: Overweight) The standard range for ages 18 and older is >=18.5 and < 25 kg/m2. Your BMI today was above this range, this falls in the overweight to obese category and there are medical benefits to weight loss. We can offer counselling, referral, and/or medical support in addressing this problem. Your BMIand weight management will be followed at subsequent visits. Follow-up No qualifying data available Patient Education Strep Throat, Adult Problem List/Past Medical History Ongoing Encounter for vasectomy Family history of prostate cancer Hypothyroid Otitis media Historical No qualifying data Procedure/Surgical History Vasectomy (05/20/2022), Appendectomy, Surgery. Medications azithromycin 250 mg Tab, 1 packet(s), Oral, As Directed levothyroxine 150 mcg (0.15 mg) Tab, 150 mcg= 1 tab(s), (more content not included)...[facility] HospitalComment on above:Result Comment: Electronically Signed By: TOM DUGGAN CNP\.silvino\Date and Time Signed: 07/25/24 12:52 ESTRemvalleywise behavioral [facility] center [place] 08-66-2431TpjgxswukAssslvyrm From: Lady Ruiz To: B - Clinical; Sent: 05/17/2024 08:13:30 EDT Show up: 05/17/2024 08:14:00 EDT Subject: Ambulatory Reminder Due Date/Time: 05/18/2024 08:13:00 EDT TSH was normal Results: Date Result Name Value Ref Range 05/16/2024 7:07 TSH 2.98 mcIU/mL (0.34 - 5.60) Left detailed message on pt's VM.[facility] HospitalCHEMISTRY Ordered By: SYSTEM SYSTEM on 65-87-1586BKY Qn2.98 m[IU]/LNormal0.34 - 5.60 mcIU/mLRemisol ChemTSHon 29-51-1754ORL Qn2.98 m[IU]/LNormal0.34-5.60[facility] HospitalComment on above:Performed By: #### [id number] #### [facility] [address], [place] [address]Misvrnrqyff 12-31-3067Hoiqkxgaj From: Lady Ruiz To: [facility] - Clinical; Sent: 12/08/2023 08:15:46 EDT Show up: 12/08/2023 08:15:00 EDT Subject: Ambulatory Reminder Due Date/Time: 12/09/2023 08:14:00 EDT Going to increase dose again. We are getting closer to normal. Need to recheck TSH again in 6 weeks. Does he want to do that here or at [facility]? Results: Date Result Name Ind Value Ref Range 12/07/2023 15:11 TSH ((H)) 9.25 mcIU/mL (0.34 - 5.60) From: Karen Abbasi (B - Clinical) To: [facility] - Clinical; Sent: 12/08/2023 13:00:45 EDT Show up: 12/08/2023 12:58:00 EDT Subject: RE: Ambulatory Reminder Attempted to call patient. No answer. Left message for patient to return call. Levothyroxine increased to 150mcg. New prescription sent to pharmacy. Patient need TSH checked in 6weeks. Does he want to go to [facility] or come to office? If he wants to come to office, please schedule. Patient return call and information given and verbally understood. transferred to office to schedule blood draw.[facility] HospitalCHEMISTRY Ordered By: SYSTEM SYSTEM on 98-93-9011GET Qn9.25 m[IU]/LHigh0.34 - 5.60 mcIU/mL Remisol ChemNurse Consultation Noteon [id number] Consultation NoteReason for Visit lab draw Assessment/Plan Hypothyroidism (E03.9: Hypothyroidism, unspecified) Medications levothyroxine 137 mcg (0.137 mg) Tab, 137 mcg= 1 tab(s), Oral, Daily, 1 refills loratadine, Daily Multi Vitamins oral tablet, Oral, Daily Allergies No Known Allergies Immunizations Vaccine Date Status Comments influenza virus [...] formulation 04/30/1993 Recorded measles/mumps/rubella virus vaccine 09/24/1989 RecordedNormalCommunity Memorial HospitalTSHon 36-92-2917WZZ Qn9.25 m[IU]/LHigh0.34-5.60Community Memorial HospitalComment on above:Performed By: #### [id number] #### [facility] [address], [place] [address]Khlcmgpxas Visit Summaryon 62-88-3040Yrwjvyffzg Visit Summary MAYANKLUANNEYUNI :1990 Visit Date:09/29/2023 Ambulatory Visit Instructions Your [...] 1 Tablets By Mouth Every 12 hours Otitismedia BMI 27.0-27.9,adult Duration: 7 Days Pickup at [facility]/pharmacy #[id number] New methylPREDNISolone (Medrol 4 mg Tab) 1 Packets By Mouth As Directed Otitis media BMI 27.0-27.9,adult Duration: 6 Days as directed on package labeling Pickup at [facility]/pharmacy #[id number] Unchanged levothyroxine (levothyroxine 112 mcg (0.112 mg) oral capsule) 1 Capsules By Mouth Every day Unchanged loratadine Every day Unchanged multivitamin (Multi Vitamins oral tablet) By Mouth Every day Pharmacy Information [id number]: [address] [place], [place] [id number] [phone] Allergies No Known Allergies Problems Ongoing - [...] you for choosing us for your care. [facility] Medicine Office/Clinic Noteon 53-52-1815Mmlsaf Medicine Office/Clinic NoteChief Complaint ear pain, fever, chills HPI Staff [...] day(s), # 14 tab(s), Refills(s) 0, [id number], 185, cm, 09/29/23 8:32:00 EST, Height/Length Dosing, 95.7, kg, 09/29/23 8:32:00 EST, Weight Dosing methylPREDNISolone, = 1 packet(s), Oral, As Directed, as directed on package labeling, X 6 day(s), # 21 tab(s), Refills(s) 0, [id number], 185, cm, 09/29/23 8:32:00 EST, Height/Length Dosing, 95.7, kg, 09/29/23 8:32:00 EST, Weight Dosing Influenza Type A&B POC 52936 Rapid COVID POC 66334 2. BMI 27.0-27.9,adult (Z68.27: Body mass index [BMI] 27.0-27.9, adult) BMI education complete Ordered: amoxicillin-clavulanate, = 1 tab(s), Oral, q12hr, X 7 day(s), # 14 tab(s), Refills(s) 0, Pharmacy: [facility]/pharmacy #[id number], 185, cm, 09/29/23 8:32:00 EST, Height/Length Dosing, 95.7, kg, 09/29/23 8:32:00 EST, Weight Dosing methylPREDNISolone, = 1 packet(s), Oral, As Directed, as directed on package labeling, X 6 day(s), # 21 tab(s), Refills(s) 0, Pharmacy: [facility]/pharmacy #[id number], 185, cm, 09/29/23 8:32:00 EST, [...] POC: Negative (09/29/23 08:4 (more content not included)...Normal Community Memorial HospitalComment on above:Result Comment: Electronically Signed By: Lady Ruiz\Date and Time Signed: 09/29/23 09:50 EST Physician Orderon [id number] Order [id number]#1.00TIFFDayton Children's HospitalImmunization Recordson 88-67-8125Loabvmtqdkdq Records [id number]#1.00CD:127[facility] Children's HospitalFREE T3on 11-27-5106VPMB T32.51 pg/mlLNormal2.18-3.98The [facility] Comment on above:Performed By: #### TSH, FT3 #### [facility] [address] [place] [address] Dr. Felipe Jorge T4on 29-84-0484Rwby T4 [Mass/Vol]0.86 ng/dLNormal0.76-1.46 The [facility] HospitalComment on above:Performed By: #### FT4 #### [facility] [address] [place] [address] Dr. Felipe Au 95-75-9163VKG67.720 uIU/mLCritically high0.358-3.740The [facility] HospitalComment on above:Performed By: #### TSH, FT3 #### [facility] [address] [place] [address] Dr. Felipe Jorge T3on 15-91-4607YHDF T32.30 pg/mlLNormal2.18-3.98The [facility] HospitalComment on above:Performed By: #### FT3 #### [facility] [address] [place] [address] Dr. Felipe Jorge T4on 11-68-2592Hpga T4 [Mass/Vol]0.54 ng/dLCritically low 0.76-1.46The [facility] Hospitalment on above:Performed By: #### FT4 #### [facility] [address] [place] [address] Dr. Felipe Mendez [facility] CBC AUTO DIFFon 25-17-7926XOHG #0.1 103/ulNormal 0.0-0.1The [facility] HospitalComment on above:Performed By: #### HFPFCBC #### [facility] [address] [place] [address] Dr. Felipe JohnsonBasophils/100 WBC (Bld)1.1 %Normal0.2-2.0The [facility] Comment on above:Performed By: #### HFPFCBC #### [facility] [address] [place] [address] Dr. Felipe Rosenberg #0.3 103/ulNormal0.0-0.7The [facility] HospitalComment on above: Performed By: #### HFPFCBC #### [facility] [address] [place] [address] Dr. Felipe Santoyoosinophils/100 WBC (Bld)7.4 %Critically high0.9-7.0The [facility] HospitalComment on above:Performed By: #### HFPFCBC #### [facility] [address] [place] [address] Dr. Felipe Santoyorythrocyte distribution width (RBC) [Ratio]12.3 %Sccrwa50.0-15.0 The [facility] HospitalComment on above:Performed By: #### HFPFCBC #### [facility] [address] [place] [address] Dr. Felipe JohnsonHematocrit (Bld) [Volume fraction]43.0 %Swcnmc57.0-54.0The [facility] HospitalComment on above:Performed By: #### HFPFCBC #### [facility] [address] [place] [address] Dr. Felipe JohnsonHemoglobin (Bld) [Mass/Vol]14.3 g/uGUiozib60.0-18.0The [facility] HospitalComment on above:Performed By: #### HFPFCBC #### [facility] [address] [place] [address] Dr. Felipe Harrington #0.01 10e3/ulNormal0.00-0.03The [facility] on above:Performed By: #### HFPFCBC #### [facility] [address] [place] [address] Dr. Felipe Harrington %0.2 %Normal0.0-0.5The [facility] HospitalComment on above: Performed By: #### YANETFCBC #### [facility] [address] [place] [address] Dr. Felipe Kowalski #1.9 103/ulNormal1.2-3.8The [facility] HospitalComment on above:Performed By: #### SAVANAHBC #### [facility] [address] [place] [address] Dr. Felipe Robertohocytes/100 WBC (Bld)40.3 %Zeymsf33.5-60.0The [facility] HospitalComment on above:Performed By: #### SAVNAAHBC #### [facility] [address] [place] [address] Dr. Felipe Meza (RBC) [Entitic mass]30.2 axLeihib82.9-34.0The [facility] HospitalComment on above:Performed By: #### YANETFCBC #### [facility] [address] [place] [address] Dr. Felipe Hylton (RBC) [Mass/Vol]33.3 g/xXUadlhh45.9-35.2The [facility] HospitalComment on above:Performed By: #### YANETFCBC #### [facility] [address] [place] [address] Dr. Felipe Morales (RBC) [Entitic vol]90.9 eQClutas71.0-94.0The [facility] HospitalComment on above:Performed By: #### YANETFCBC #### [facility] [address] [place] [address] Dr. Felipe Last #0.6 103/ulNormal0.3-0.8The [facility] HospitalComment on above:Performed By: #### HFPFCBC #### [facility] [address] [place] [address] Dr. Felipe Esquedaocytes/100 WBC (Bld)13.9 %Critically high1.7-12.0The [facility] HospitalComment on above:Performed By: #### HFPFCBC #### [facility] [address] [place] [address] Dr. Felipe ColonUT #1.7 103/ulNormal1.4-6.5The [facility] HospitalComment on above:Performed By: #### HFPFCBC #### [facility] [address] [place] [address] Dr. Felipe Colonutrophils/100 WBC (Bld)37.1 %Critically low43.0-75.0The [facility] HospitalComment on above:Performed By: #### HFPFCBC #### [facility] [address] [place] [address] Dr. Felipe JohnsonPlatelet mean volume (Bld) [Entitic vol]9.7 fLNormal9.5-13.5The [facility] HospitalComment on above:Performed By: #### HFPFCBC #### [facility] [address] [place] [address] Dr. Felipe JohnsonPLT207 103/iwNuzalu412-276Lqj [facility] HospitalComment on above: Performed By: #### HFPFCBC #### [facility] [address] [place] [address] Dr. Felipe JohnsonRBC4.73 106/ulNormal4.70-6.10The [facility] HospitalComment on above:Performed By: #### HFPFCBC #### [facility] [address] [place] [address] Dr. Felipe JohnsonWBC4.6 103/ulNormal4.0-11.0The [facility] HospitalComment on above: Performed By: #### HFPFCBC #### [facility] [address] [place] [address] Dr. Felipe MendezFAIR PROFILEon 76-83-6750Udmccst [Mass/Vol]4.4 g/dLNormal 3.4-5.0The [facility] HospitalComment on above:Performed By: #### HFPF #### [facility] [address] [address] [address] Felipe JohnsonAlbumin/Globulin [Mass ratio]1.3 {ratio}NormalThe [facility] HospitalComment on above:Performed By: #### HFPF #### [facility] [address] [address] [address] Felipe PainterP [Catalytic activity/Vol]47 U/UBxlgab59-317Iag [facility] HospitalComment on above:Performed By: #### HFPF #### [facility] [address] [place] [address] Dr. Felipe PainterT [Catalytic activity/Vol]34 U/QVjprlj42-37Mey [facility] HospitalComment on above:Performed By: #### HFPF #### [facility] [address] [place] [address] Dr. Felipe JohnsonAST [Catalytic activity/Vol]24 U/VEwoftf19-57Upq [facility] HospitalComment on above:Performed By: #### HFPF #### [facility] [address] [place] [address] Dr. Felipe JohnsonBilirubin [Mass/Vol]0.5 mg/dLNormal0.2-1.0The [facility] Comment on above:Performed By: #### HFPF #### [facility] [address] [place] [address] Dr. Felipe JohnsonCalcium [Mass/Vol]9.2 mg/dLNormal8.5-10.1The [facility] Comment on above:Performed By: #### HFPF #### [facility] [address] [place] [address] Dr. Felipe JohnsonChloride [Moles/Vol]103 mmol/WUadoiw95-484Vfx [facility] Comment on above:Performed By: #### HFPF #### [facility] [address] [address] [address] Felipe JohnsonCHOL-HDL RATIO NORMSEE [facility], AvonComment on above:Result Comment: 3.3 - 4.4 LOW RISK 4.4 - 7.1 AVERAGE RISK 7.1 - 11.0 MODERATE RISK >11.0 HIGH RISKPerformed By: #### HFPF #### [facility] [address] [address] [address] Felipe JohnsonCholesterol [Mass/Vol]170 mg/dLNormal<=200The [facility] Comment on above:Performed By: #### HFPF #### [facility] [address] [address] [address] Felipe JohnsonCholesterol in HDL [Mass/Vol]55 mg/iSWmzxpx02-59EcnOhiohealth Marion General HospitalComment on above:Performed By: #### HFPF #### [facility] [address] [address] [address] Felipe JohnsonCholesterol in LDL [Mass/Vol]103.2 mg/dLFirelands Regional Medical Center South CampusComment on above:Performed By: #### HFPF #### [facility] [address] [address] [address] Felipe Masonestertwyla.total/Cholesterol in HDL [Mass ratio]3.1 {ratio} NormalOhiohealth Marion General HospitalComment on above:Performed By: #### HFPF #### [facility] [address] [address] [address] Felipe JohnsonCO2 [Moles/Vol]29.5 mmol/QKsnjmf25.0-32.0The [facility] Comment on above:Performed By: #### HFPF #### [facility] [address] [address] [address] Felipe JohnsonCreatinine [Mass/Vol]0.94 mg/dLNormal0.70-1.30The [facility] HospitalComment on above:Performed By: #### HFPF #### [facility] [address] [address] [address] Felipe JohnsonGlobulin (S) [Mass/Vol]3.5 g/dLFirelands Regional Medical Center South CampusComment on above:Performed By: #### HFPF #### [facility] [address] [address] [address] Felipe JohnsonGlucose [Mass/Vol]89 mg/fHGzjqoq85-887XpaOhiohealth Marion General Hospital Comment on above:Performed By: #### HFPF #### [facility] [address] [address] [address] Felipe Duran NORMAL> or = 60 mg/dl - LOW CARDIOVASCULAR RISK <40 mg/dl - HIGH CARDIOVASCULAR RISKFirelands Regional Medical Center South CampusComment on above:Performed By: #### HFPF #### [facility] [address] [place] [address] Dr. Felipe JohnsonLDL CALC NORMALSEE BELOWFirelands Regional Medical Center South CampusComment on above:Result Comment: <100 mg/dl OPTIMAL 100 - 129 mg/dl NEAR OR ABOVE OPTIMAL 130 - 159 mg/dl BORDERLINE HIGH 160 - 189 mg/dl HIGH >190 mg/dl VERY HIGH Performed By: #### HFPF #### [facility] [address] [place] [address] Dr. Felipe JohnsonPotassium [Moles/Vol]4.0 mmol/LNormal3.5-5.1[facility] Comment on above:Performed By: #### HFPF #### [facility] [address] [place] [address] Dr. Felipe JohnsonProtein [Mass/Vol]7.9 g/dLNormal6.4-8.2[facility] Comment on above:Performed By: #### HFPF #### [facility] [address] [place] [address] Dr. Felipe JohnsonSodium [Moles/Vol]139 mmol/BDtalyb471-948ZacOhiohealth Marion General Hospital Comment on above:Performed By: #### HFPF #### [facility] [address] [address] [address] Felipe JohnsonTriglyceride [Mass/Vol]59 mg/dLNormal<=150Ohio[facility] Comment on above:Performed By: #### HFPF #### [facility] [address] [address] [address] Felipe JohnsonTSH82.125 uIU/mLCritically high0.358-3.740The [facility] Comment on above:Performed By: #### HFPF #### [facility] [address] [address] [address] Felipe JohnsonUrea nitrogen [Mass/Vol]15.0 mg/dLNormal7.0-18.0The [facility] HospitalComment on above:Performed By: #### HFPF #### [facility] [address] [address] [address] Felipe JohnsonUrea nitrogen/Creatinine [Mass ratio]16.0 mg/mgNoKettering Health MiamisburgComment on above:Performed By: #### HFPF #### [facility] [address] [address] [address] Felipe JohnsonVLDL CALC11.8 mg/dLFirelands Regional Medical Center South CampusComment on above: Performed By: #### HFPF #### [facility] [address] [address] [address] Felipe Johnson Encounters Encounter DateEncounter TypeCare ProviderFacilityStart: 12-13-2024 End: 12-79-4267Ecw Drop offJodi L Andrea [facility] Start: 12-13-2024 End: 62-31-6595wqrowuczkwFSI Lady L SchwabFacility:[facility] CenterueStart: 11-01-2024 End: 81-46-1531Kmb Drop offJodi L Andrea [facility] Start: 11-01-2024 End: 50-22-9244njisyjqufyAYG Lady L SchwabFacility:FTMCStart: 07-25-2024 End: 09-49-2379xsgrzpiovoDOOBDM A LEHMANNFacility:FT BellevueStart: 05-16-2024 End: 84-12-0102Xof Drop offJodi L Andrea [facility] Start: 05-16-2024 End: 21-49-4592qfxmycyqhwHMX Lady L SchwabFacility:FT FM BellevueStart: 12-07-2023 End: 82-45-3147Myt Drop offJodi L Andrea [facility] Start: 12-07-2023 End: 33-97-4554auwvjpbufbTCV Lady L SchwabFacility:FTMCStart: 09-29-2023 End: 45-15-9917gisuwjsiptUYV Lady L SchwabFacility:FT FM BellevueStart: 08-24-2022 End: 82-93-1140Ppx Drop offRobert W VIVIANA [facility] Start: 06-20-2022 End: 18-08-0309gbxgwbncimHY KIM E KNIGHTFacility:Z2Ffcls: 04-18-2022 End: 96-88-0843hvrhejtjkmSUMaira RUGGIEROFacility:K4Wotyf: 04-16-2022 End: 14-68-0904wdutnjgpwwZN KIM E KNIGHTFacility:H1 Procedures DateProcedureProcedure DetailPerforming ClinicianStart: 60-56-7365Jlbjyjxgn Zen RICE appendectomyRobert RICE Surgical procedureJodi Andrea Comment on above:etienne ulangel Immunizations Immunization DateImmunizationNotesCare QwiydcwfQvrkhakh74-47-2889exwnacuxq virus vaccine, unspecified formulationJodi Andrea [phone]-TamipSamaritan North Health Center Family [facility] Yann 39-40-4526fmydespaa virus vaccine, unspecified formulationJodi Andrea [phone]-WenqyUniversity Hospitals Health System 57-20-7228RFFZ-CoV-2 (COVID-19) mRNA BNT-162b2 vaxJodi Andrea [phone]-OqnmlUniversity Hospitals Health System Comment on above:Result Comment: 2023-05-06: GOTEGX15-30-4462kvufuhpmv virus vaccine, unspecified formulationJodi Andrea [phone]-Zwohn[address] [place] [address] 39-06-2695ZNHC-CoV-2 (COVID-19) mRNA BNT-162b2 vaxJodi Andrea [phone]-DicpnUniversity Hospitals Health System 80-94-0872CDWN-CoV-2 (COVID-19) mRNA BNT-162b2 vaxJodi Andrea [phone]-OxtmbUniversity Hospitals Health System 69-88-9382fxudimjzr virus vaccine, unspecified formulationJodi Andrea [phone]-IwkpkUniversity Hospitals Health System 44-11-9872nwdbcouze virus vaccine, unspecified formulationJodi Andrea [phone]-UdcqoUniversity Hospitals Health System 56-57-2723ymezwelzm virus vaccine, unspecified formulationJodi Andrea [phone]-XpqwrUniversity Hospitals Health System 73-82-3545zbcdbvl, mumps and rubella virus vaccineJodi Andrea 254-3259Qpumjx-JyahbUniversity Hospitals Health System 40-06-3924TEvD, unspecified formulationJodi Andrea 215-1656Lztxns-WvidnUniversity Hospitals Health System 99-25-6065Adx, unspecified formulationJodi Andrea [phone]-XrvkeUniversity Hospitals Health System 32-06-7799vrpmfse, mumps and rubella virus vaccineJodi Andrea [phone]-WzogaUniversity Hospitals Health System Elizabeth DatePayer CategoryPayerPolicy [id number] [id number] 2.16.840.1.065552.3.57[id number] 2..840.1.477887.3.57[id number] 2.16.840.1.627928.3.57[id number] 2.16.840.1.411376.3.57[id number] 2..840.1.473965.3.57[id number] 2..840.1.119725.3.57[id number] 2.16.840.1.906021.3.57[id number] 2..840.1.165358.3.57[id number] 2..840.1.270540.3.57[id number] 2.16.840.1.377484.3.57[id number] 2..840.1.716198.3.57[id number] 2.16.840.1.970145.3.579.2.71617-91-5719Fhih-[id number] [id number] 2.16.840.1.203939.3.579.2.593 Social History DateTypeDetailFacilityStart: 04-14-2022 End: 10-80-1554Ykqlszb smoking statusNever smoked tobacco (finding)[facility] Isaak Assigned At BirthOhio State East HospitalTobacco smoking statusNeverSamaritan North Health Center [facility] BellevueSexual OrientationOhio State University [facility] Start: 04-96-1029MogLhza (finding)[facility] Clinical Note 12-13-2024 Note Date & MrwcAqayLyyexssn42-99-4424 NoteNurse Consultation Note Reason for Visit patient came IO for lab draw Assessment/Plan 1. Hypothyroid (E03.9: Hypothyroidism, unspecified) Medications levothyroxine 150 mcg (0.15 mg) Tab, 150 mcg= 1 tab(s), Oral, Daily, 2 refills Multi Vitamins oral tablet, Oral, Daily Allergies No Known Allergies Immunizations Vaccine Date Status Comments influenza virus [...] formulation 04/30/1993 Recorded measles/mumps/rubella virus vaccine 09/24/1989 [facility] Evaluation + Plan note 12-13-2024 Note Date & BtrjQvnvUpghlihp72-96-9190 Evaluation + Plan note Diagnostic Tests Pending * Thyroid Stimulating Hormone 12/13/24 [facility] Clinical Note 07-25-2024 Note Date & WtcyUmdaEnumsjct75-13-5215 NotePatient Education Infectious Disease Strep Throat, Adult Strep throat is an infection in the throat that is caused by bacteria. It is common during the coldmonths of the year. It mostly affects children who are 5?15 years old. However, people of all ages can get it at any time of the year. This infection spreads from person to person (is contagious) through coughing, sneezing, or having close contact. Your health care provider may use other names to describe the infection. When strep throat affects the tonsils, it is called tonsillitis. When it affects the back of the throat, it is called pharyngitis. What are the causes? This condition is caused by the Streptococcus pyogenes bacteria. What increases the risk? You are more likely to develop this condition if: ??? You care for school-age children, or are around school-age children. Children are more likely to get strep throat and may spread it to others. ??? You spend time in crowded places where the infection can spread easily. ??? You have close contact with someone who has strep throat. What are the signs or symptoms? Symptoms of this condition include: ??? Fever or chills. ??? Redness, swelling, or pain in the tonsils or throat. ??? Pain or difficulty when swallowing. ??? White or yellow spots on the tonsils or throat. ??? Tender glands in the neck and under the jaw. ??? Bad smelling breath. ??? Red rash all over the body. This is rare. How is this diagnosed? This condition is diagnosed by tests that check for the presence and the amount of bacteria that cause strep throat. They are: ??? Rapid strep test. Your throat is swabbed and checked for the presence of bacteria. Results are usually ready in minutes. ??? Throat culture test. Your throat is swabbed. The sample is placed in a cup that allows infections to grow. Results are usually ready in 1 or 2 days. How is this treated? This condition may be treated with: ??? Medicines that kill germs (antibiotics). ??? Medicines that relieve pain or fever. These include: ? Ibuprofen or acetaminophen. ? Aspirin, only for people who are over the age of 18. ? Throat lozenges. ? Throat sprays. Follow these instructions at home: Medicines ??? Take ezmf-wng-zlwlfek and prescription medicines only as told by your health care provider. ??? Take your antibiotic medicine as told by your health care provider. Do not stop taking the antibiotic even if you start to feel better. Eating and drinking ??? If you have trouble swallowing, try eating soft foods until your sore throat feels better. ??? Drink enough fluid to keep your urine pale yellow. ??? To help relieve pain, you may have: ? Warm fluids, such as soup and tea. ? Cold fluids, such as frozen desserts or popsicles. General instructions ??? Gargle with a salt-water mixture 3?4 times a day or as needed. To make a salt-water mixture, completely dissolve ??1 tsp (3?6 g) of salt in 1 cup (237 mL) of warm water. ??? Get plenty of rest. ??? Stay home from work or school until you have been taking antibiotics for 24 hours. ??? Do not use any products that contain nicotine or tobacco. These products include cigarettes, chewing tobacco, and vaping devices, such as e-cigarettes. If you need help quitting, ask your health care provider. ??? It is up to you to get your test results. Ask your health care provider, or the department thatis doing the test, when your results will be ready. ??? Keep all follow-up visits. This is important. How is this prevented? Do not share food, drinking cups, or personal items that could cause the infection to spread toother people. ??? Wash your hands often with soap and water for at least 20 seconds. If soap and water are not available, use hand office machine mechanic. Make sure that all people in your house wash their hands well. ??? Have family members tested if they have a sore throat or fever. They may need an antibiotic if they have strep throat. Contact a health care provider if: ??? You have swelling in your neck that keeps getting bigger. ??? You develop a rash, cough, or earache. ??? You cough up a thick mucus that is green, yellow-brown, or bloody. ??? You have pain or discomfort that does not get better with medicine. ??? Your symptoms seem to be getting worse. ??? You have a fever. Get help right away if: ??? You have new symptoms, such as vomiting, severe headache, stiff or painful neck, chest pain, orshortness of breath. ??? You have severe throat pain, drooling, or changes in your voice. ??? You have swelling of the neck, or the skin on the neck becomes red and tender. ??? You have signs of dehydration, such as tiredness (fatigue), dry mouth, and decreased urination. ??? You become increasingly sleepy, or you cannot wake up completely. ??? Your joints become (more content not included)...[facility] Clinical Note 05-16-2024 Note Date & [id number] NoteNurse Consultation Note Reason for Visit Here for lab draw Assessment/Plan Hypothyroidism (E03.9: Hypothyroidism, unspecified) Medications levothyroxine 150 mcg (0.15 mg) Tab, 150 mcg= 1 tab(s), Oral, Daily, 1 refills loratadine, Daily Multi Vitamins oral tablet, Oral, Daily Allergies No Known Allergies Immunizations Vaccine Date Status Comments influenza virus [...] formulation 04/30/1993 Recorded measles/mumps/rubella virus vaccine 09/24/1989 [facility] 08-24-2022 Note Date & [id number] Evaluation + Plan note Diagnostic Tests Pending * Semen Analysis Post Vasectomy 08/24/22 * Sperm Morphology 08/24/22 Future Scheduled Tests Laboratory* Semen Analysis Post Vasectomy 06/09/22 [facility] Evaluation + Plan note Note Date & TypeNoteFacilityEvaluation + Plan note Future Appointments Appointment Date:12/13/2024 02:40:00 PM Scheduled Provider: Location:[facility] Appointment Type: Nurse Visit Diagnostic Tests Pending * Thyroid Stimulating Hormone 11/01/24 * T3 Free 11/01/24 * Free T4 11/01/24 Future Scheduled Tests Laboratory* Thyroid Stimulating Hormone 11/01/24 [facility] Hospital course Narrative Note Date & TypeNoteFacilityHospital course Narrative No data available for this section [facility] Hospital Discharge instructions Note Date & TypeNoteFacilityHospital Discharge instructions No data available for this section [facility] Progress note Note Date & TypeNoteFacilityProgress note No data available for this section [facility] Summary Purpose Family History No Family History Records Found No data available for this section No Family History Records Found No data available for this section No data available for this section No Family History Records FoundNo Family History Records Found No data available for this section No Family History Records FoundNo Family History Records FoundNo Family History Records Found Advance Directives No Advanced Directives Records FoundNo Advanced Directives Records FoundNo Advanced Directives Records FoundNo Advanced Directives Records FoundNo Advanced Directives Records FoundNo Advanced Directives Records FoundNo Advanced Directives Records Found Additional Source Comments (unrecognized sect ion and content) No Status Records FoundNo Status Records FoundNo Status Records FoundNo Status Records FoundNo Status Records FoundNo Status Records FoundNo Status Records Found INFORMATION SOURCE (unrecogn ized section and content) DATE CREATED AUTHOR 06/25/2022 [facility] DATE CREATED AUTHOR AUTHOR'S ORGANIZ ATION 05/17/2024 [facility] DATE CREATED AUTHOR AUTHOR'S ORGANIZ ATION 11/05/2024 [facility] DATE CREATED AUTHOR AUTHOR'S ORGANIZ ATION 12/15/2024 [facility] DATE CREATED AUTHOR AUTHOR'S ORGANIZ ATION 12/16/2024 [facility] DATE CREATED AUTHOR AUTHOR'S ORGANIZ ATION 12/24/2024 [facility] Patient Care team informatio n (unrecognized section and content) Personnel Name: FRAN RUGGIERO MD Address: Address: [address] [place] [address] Personnel Name: Lady Ruiz Address: Address: [address] [place] [address]- Personnel Name: Lady Ruiz Address: Address: [address] [place] [address]- Personnel Name: Lady Ruiz Address: Address: [address] [place] [address]- Personnel Name: Lady Ruiz Address: [address] [place] [address]- [employer]: FOR RECORDS PERTAINING TO PATIENTS WHO ARE [...] BE BASED ON THE PRIMARY CLINICAL RECORDS. [facility] provides no warranty or guarantee of the accuracy or completeness of information in this document.
--- OUTSIDE RECORDS SUMMARY | 2025-07-07 10:05 | XMS_ITS | Clinical Summary ---
Author Organization [facility] Healthcare Address [address] [place] [address] Care Team Providers Care Ecdis N Navigation Operator Name Role Phone Unavailable Primary Care Provider Unavailabl e Social History Tobacco UseTypesPacks/DayYears UsedDateSmoking Tobacco: Never AssessedSex and Gender InformationValueDate RecordedSex Assigned at BirthNot on fileLegal Sex Male11/11/2022 6:41 PM EDTGender IdentityNot on fileSexual OrientationNot on file Last Filed Vital Signs Vital SignReadingTime TakenCommentsBlood Sfedjzvb464/8806/02/2021 12:00 PM EDT Pulse--Temperature--Respiratory Rate--Oxygen Saturation--Inhaled Oxygen Concentration--Oinsxg39.9 kg (218 lb)06/02/2021 12:00 PM EMLRrlwyt231.4 cm (6' 1 )06/02/2021 12:00 PM EDTBody Mass Index28.7606/02/2021 12:00 PM EDT Plan of Treatment Not on file Insurance
[2025-07-07] MEDS: LIDOCAINE HCL 1% 100 MG/10 ML MDV INJ (10:06)
[2025-07-07] MEDS: DIPHTH,PERTUSS(ACELL),TET VAC 0.5 ML SYRINGE IM (10:49)
[2025-07-07 11:00] VITALS: BP 126/75; PULSE 65; O2SAT 100
--- NOTE | 2025-07-07 11:00 | ED_ITS ---
HPI HPI - General Adult General Chief complaint: Wound/Laceration Stated complaint: LACERATION - FINGER Time Seen by Provider: 07/07/25 09:51 Source: patient Mode of arrival: walk-in History of Present Illness HPI narrative: Patient is a 35 old male presenting to the emergency department for evaluation of a laceration on his left pinky. Patient accidentally cut his left pinky finger on a broken coffee pot just prior to arrival. He denies any other injuries. No numbness/tingling/weakness in the affected finger. Unsure of his last tetanus shot. He is not on anticoagulation. Otherwise healthy with no chronic medical conditions. Related Data Home Medications ?Medication ?Instructions ?Recorded ?Confirmed levothyroxine 175 mcg tablet 175 mcg PO DAILY 07/07/25 07/07/25 Allergies Allergy/AdvReac Type Severity Reaction Status Date / Time No Known Drug Allergies Allergy Verified 07/07/25 09:53 Opioid HPI Opioid Management Most Recent Opioid Data: Last Pain Scale 4 Today, 10:01 Review of Systems ROS Status of ROS 10 or more systems reviewed and unremark able except as noted in history and below PFSH PFSH Social History Little interest or pleasure in doing things: not at all Feeling down, depressed, or hopeless: not at all Exam Narrative Exam Narrative: CONSTITUTIONAL: Well-appearing, answering questions and following commands appropriately SKIN: There is an irregularly shaped 0.5 cm laceration on the finger pad of the left pinky with mild nonpulsatile bleeding. EYES: Sclerae white. EARS, NOSE, THROAT: Moist oral mucosa. RESPIRATORY: Nonlabored respirations. CARDIOVASCULAR: Normal rate and regular rhythm. Cap refill less than 2 seconds of left pinky finger. GASTROINTESTINAL: Abdomen is nondistended. MUSCULOSKELETAL: Full range of motion of the left pinky throughout the MCP, PIP, DIP joints. No deformities or foreign bodies. NEUROLOGIC: Patient is awake and alert. Good strength of the left MCP/PIP/DIP joints of the left pinky finger. Sensation intact to light touch throughout the left pinky. Constitutional Vital Signs, click to edit/add: Last Vital Signs Temp 97.5 F L 07/07/25 09:54 Pulse 75 07/07/25 09:54 Resp 18 07/07/25 09:54 BP 133/87 07/07/25 09:54 Pulse Ox 99 07/07/25 09:54 O2 Del Method Room Air 07/07/25 09:54 Course Vital Signs Vital signs: Vital Signs Temperature 97.5 F L 07/07/25 09:54 Pulse Rate 75 07/07/25 09:54 Respiratory Rate 18 07/07/25 09:54 Blood Pressure 133/87 07/07/25 09:54 Pulse Oximetry 99 07/07/25 09:54 Oxygen Delivery Method Room Air 07/07/25 09:54 Temperature 97.5 F L 07/07/25 09:54 Pulse Rate 75 07/07/25 09:54 Respiratory Rate 18 07/07/25 09:54 Blood Pressure 133/87 07/07/25 09:54 Pulse Oximetry 99 07/07/25 09:54 Oxygen Delivery Method Room Air 07/07/25 09:54 Medical Decision Making MDM Narrative Medical decision making narrative: Patient is a 35-year-old male presenting to the emergency department for evaluation of the left pinky finger laceration that occurred just prior to arrival. Vital signs are within normal limits. Hemodynamically stable. The finger is neurovascularly intact with good strength, perfusion, and sensation. Full range of motion throughout the finger without evidence of tendon injury. X-rays of the left index finger independent reviewed/interpreted by myself and radiology demonstrated no foreign bodies or fracture. Patient's laceration was repaired by primary intention/suture repair (see p darryl note for full dictation). His tetanus shot was updated. I do believe the patient is stable for discharge. They were instructed to follow up with healthcare provider in 5 to 7 days for suture removal. Return precautions were given including any new or worsening symptoms. Patient understands and agrees to the plan. FINAL IMPRESSION: #Acute left fifth digit laceration DISPOSITION: Discharged home CONDITION: Good Differential Diagnosis Differential Diagnosis: Finger laceration, foreign body, fracture Discharge Plan Discharge Chief Complaint: Wound/Laceration Clinical Impression: Laceration Patient Disposition: Home, Self-Care Time of Disposition Decision: 10:52 Condition: Good Mode of Transportation: Private Vehicle Prescriptions / Home Meds: No Action levothyroxine 175 mcg tablet 175 mcg PO DAILY Print Language: Libyan Instructions: Finger Laceration (ED) Additional Instructions: Return to ED or PCP for suture removal in 5-7 days Referrals: ASIF ECHEVERRIA [Primary Care Provider, MEDICAL [employer]ICE SALES CONSULTANT] - 1 week Procedures ED Laceration Laceration Laceration 1: Site: other (pinky finger) Side (if applicable): left Size (cm): 0.5 Description: flap Depth: simple, single layer Anesthetic used: lidocaine 1% Anesthesia technique: local infiltration Amount (ml): 1 Pre-repair: irrigated extensively Skin layer closed with: other (Ethilon) Size (cm): 5-0 Number of sutures: 2 Technique: simple, interrupted
== END 2025-07-07 11:03 | disposition home or self-care (01) ==
PROVIDERS: Emergency Provider Student in an Organized Health Care Education/Training Program; PCP Nurse Practitioner
DX: S61.217A Laceration without foreign body of left little finger without damage to nail, initial encounter (principal); W25.XXXA Contact with sharp glass, initial encounter; Z23 Encounter for immunization
CPT/HCPCS: 12001; 73140; 90471; 90715; 99284